=== PATIENT | female | born 1945 | race Caucasian/White ===

== ENCOUNTER 2016-10-14 00:44 | Inpatient (IN) | payer BC, OTHER ==
[2016-10-14] VITALS (9 sets, daily range): BP systolic 91–112; BP diastolic 47–78; PULSE 66–97; TEMP 36.3–37.4; O2SAT 91–96; Ht 157.5 cm; Wt 85.9 kg
[~2016-10-14] VITALS: Ht 157.5 cm; Wt 85.9 kg
[~2016-10-14 00:44] MED LIST: ASCA500 PO; CHOLTAB9 PO; CLC100 PO; CRG3125 PO; CYAN1CAP4 PO; FLV1 PO; HYDR500C3 PO; INSDGI SC; LRS10 PO; LSN25 PO; LSX40 PO; MAGN400T6 PO; NVLGI SC; POTA-327 PO; PRAV20TA PO; PYRI100T4 PO; SNQ25 PO; VITA400C15 PO; WARF5TAB90 PO; WARF7.5T PO
[2016-10-14 01:29] LABS: BASO % 0.1 %; BASO ABS # 0.01 K/uL (0-0.2); EOS % 0.1 %; IG% 0.2 %; LYMPH % 23.5 %; LYMPH ABS # 1.95 K/uL (1.2-3.4); MEAN CELL VOLUME 128.9 fL (80-100); MEAN CORPUSCULAR HEMOGLOBIN 40.9 pg (25-34); MEAN CORPUSCULAR HGB CONC 31.7 g/dl (32-36); MEAN PLATELET VOLUME 9.8 fL (7.4-10.4); MONO % 5.5 %; NEUT % 70.6 %; PLATELET COUNT 241 K/uL (130-400); RED BLOOD COUNT 3.18 M/uL (4.2-5.4); WHITE BLOOD COUNT 8.31 K/uL (4.8-10.8)
[2016-10-14] MEDS ORDERED: FUROSEMIDE 40 MG/4 ML VIAL IV STA (01:30)
--- NOTE | 2016-10-14 01:35 | EMERGENCY ROOM VISIT NOTE ---
History Report prepared by Tex: Andrew Padilla Under the Supervision of: Dr. Marco Antonio Encarnacion D.O. First contact with patient: 01:23 Chief Complaint: SHORTNESS OF BREATH Stated Complaint: SHORTNESS OF BREATH Nursing Triage Summary: patient presents with c/o sudden onset of SOB beginning after 2100 tonight . Also patient has c/o bilateral leg swelling. Patient states she has a hx of MS. patient brought in on nasal cannula at 4L after EMS stated spo2 was 89% on RA. currently 92% on 4L. History of Present Illness The patient is a 71 year old female who presents to the Emergency Room with complaints of worsening shortness of breath tonight. The patient has also had increased swelling of her legs. The patient had some relief of her shortness of breath when she was placed on oxygen en route to the ED. She denies fevers, cough, vomiting, or diarrhea. The patient does not normally wear oxygen, although she has in the past. She denies any history of pneumonia or pulmonary edema. The patient is not ambulatory at baseline. The patient came from home. Source of History: patient Onset: tonight Position: other (respiratory) Quality: other (short of breath) Timing: worsening Associated Symptoms: No cough, No diarrhea, No fevers, No vomiting Review of Systems See HPI for pertinent positives and negatives. A total of ten systems were reviewed and were otherwise negative. Past Medical & Surgical Medical Problems: (1) Anticoagulated on warfarin (2) Benign hypertension (3) Diabetes mellitus, type II (4) Diastolic heart failure (5) History of DVT (deep vein thrombosis) (6) History of pulmonary embolism (7) Hypercholesterolemia (8) MTHFR mutation (9) Multiple sclerosis (10) Nocturnal hypoxemia (11) Polycythemia vera Family History No pertinent family history Social History Smoking Status: Former Smoker Drug Use: none Marital Status: Housing Status: lives with family Occupation Status: disabled Current/Historical Medications Scheduled Baclofen (Baclofen), 10 MG PO QID Carvedilol (Carvedilol), 3.125 MG PO BID Doxepin Hcl (Sinequan), 50 MG PO HS Folic Acid (Folic Acid), 1 MG PO QAM Lisinopril (Lisinopril), 2.5 MG PO QAM Magnesium Oxide (Mag-Ox), 400 MG PO HS Pravastatin (Pravachol ), 20 MG PO HS Rivaroxaban (Xarelto), 20 MG PO QPM Allergies Coded Allergies: No Known Allergies (Verified , 03/18/14) Physical Exam Vital Signs Date Time Temp Pulse Resp B/P Pulse Ox O2 Delivery O2 Flow Rate FiO2 10/14/16 01:52 88 22 130/77 93 Nasal Cannula 4.0 10/14/16 01:24 92 Nasal Cannula 4.0 10/14/16 01:05 109 10/14/16 01:03 92 Nasal Cannula 4.0 10/14/16 01:03 36.9 103 22 106/77 92 Nasal Cannula 4.0 10/14/16 01:03 92 Nasal Cannula 4.0 Physical Exam GENERAL: Awake, alert, well-appearing, in no distress HENT: Normocephalic, atraumatic. Oropharynx unremarkable. EYES: Normal conjunctiva. Sclera non-icteric. NECK: Supple. No nuchal rigidity. FROM. No JVD. RESPIRATORY: Bilateral crackles noted. CARDIAC: Regular rate, normal rhythm. Extremities warm and well perfused. Pulses equal. ABDOMEN: Soft, non-distended. No tenderness to palpation. No rebound or guarding. No masses. RECTAL: Deferred. MUSCULOSKELETAL: Chest examination reveals no tenderness. The back is symmetrical on inspection without obvious abnormality. There is no CVA tenderness to palpation. No joint edema. LOWER EXTREMITIES: Calves are equal size bilaterally and non-tender. Pitting edema bilaterally. No discoloration. NEURO: Normal sensorium. No sensory or motor deficits noted. SKIN: No rash or jaundice noted. Medical Decision & Procedures ER Provider Diagnostic Interpretation: X-ray: Per my interpretation. Chest One View Portable: Elevated right hemidiaphragm. Poor inspiratory effort. Suspect CHF. Laboratory Results 10/14/16 01:00 Red Blood Count 3.18, Mean Corpuscular Volume 128.9, Mean Corpuscular Hemoglobin 40.9, Mean Corpuscular Hemoglobin Concent 31.7, Mean Platelet Volume 9.8, Neutrophils (%) (Auto) 70.6, Lymphocytes (%) (Auto) 23.5, Monocytes (%) ( Auto) 5.5, Eosinophils (%) (Auto) 0.1, Basophils (%) (Auto) 0.1, Neutrophils # ( Auto) 5.86, Lymphocytes # (Auto) 1.95, Monocytes # (Auto) 0.46, Eosinophils # ( Auto) 0.01, Basophils # (Auto) 0.01 10/14/16 01:00 Test 10/14/16 01:00 10/14/16 01:34 White Blood Count 8.31 K/uL (4.8-10.8) Red Blood Count 3.18 M/uL (4.2-5.4) Hemoglobin 13.0 g/dL (12.0-16.0) Hematocrit 41.0 % (37-47) Mean Corpuscular Volume 128.9 fL (80-100) Mean Corpuscular Hemoglobin 40.9 pg (25-34) Mean Corpuscular Hemoglobin Concent 31.7 g/dl (32-36) Platelet Count 241 K/uL (130-400) Mean Platelet Volume 9.8 fL (7.4-10.4) Neutrophils (%) (Auto) 70.6 % Lymphocytes (%) (Auto) 23.5 % Monocytes (%) (Auto) 5.5 % Eosinophils (%) (Auto) 0.1 % Basophils (%) (Auto) 0.1 % Neutrophils # (Auto) 5.86 K/uL (1.4-6.5) Lymphocytes # (Auto) 1.95 K/uL (1.2-3.4) Monocytes # (Auto) 0.46 K/uL (0.11-0.59) Eosinophils # (Auto) 0.01 K/uL (0-0.5) Basophils # (Auto) 0.01 K/uL (0-0.2) RDW Standard Deviation 71.2 fL (36.4-46.3) RDW Coefficient of Variation 15.0 % (11.5-14.5) Immature Granulocyte % (Auto) 0.2 % Immature Granulocyte # (Auto) 0.02 K/uL (0.00-0.02) Macrocytosis PRESENT Prothrombin Time 14.0 SECONDS (9.0-12.0) Prothromb Time International Ratio 1.3 (0.9-1.1) Activated Partial Thromboplast Time 35.7 SECONDS (21.0-31.0) Partial Thromboplastin Ratio 1.4 Anion Gap 3.0 mmol/L (3-11) Est Creatinine Clear Calc Drug Dose 79.6 ml/min Estimated GFR () 104.8 Estimated GFR (Non- 90.4 BUN/Creatinine Ratio 48.3 (10-20) Calcium Level 8.9 mg/dl (8.5-10.1) Total Bilirubin 0.4 mg/dl (0.2-1) Aspartate Amino Transf (AST/SGOT) 18 U/L (15-37) Alanine Aminotransferase (ALT/SGPT) 39 U/L (12-78) Alkaline Phosphatase 84 U/L (45-117) Total Protein 8.0 gm/dl (6.4-8.2) Albumin 3.2 gm/dl (3.4-5.0) Globulin 4.8 gm/dl (2.5-4.0) Albumin/Globulin Ratio 0.7 (0.9-2) Bedside Troponin I 0.000 ng/ml (0-0.045) YL-Kdm-J-Type Natriuretic Peptide 162 pg/ml (0-900) Laboratory results reviewed by me Medications Administered Medications (Trade) Dose Ordered Sig/Yesenia Route Start Time Stop Time Status Last Admin Dose Admin Furosemide (Lasix Inj) 40 mg NOW STAT IV 10/14/16 01:30 10/14/16 01:31 DC 10/14/16 01:30 40 MG Levofloxacin (Levaquin / D5W) 750 mg STK-MED ONCE IV 10/14/16 02:06 10/14/16 02:07 DC 10/14/16 02:06 750 MG ECG Indication: SOB/dyspnea Rate (beats per minute): 105 Rhythm: sinus tachycardia Findings: 1st degree AV block, left axis deviation ED Course 0130: The patient was evaluated in room B12b. A complete history and physical exam was performed. 0130: Lasix 40 mg IV. 0403: The patient will be evaluated by the [facility]. Medical Decision Differential diagnosis: Etiologies such as infections, reactive airway disease, pneumonia, pneumothorax, COPD, CHF, cardiac ischemia, pulmonary embolism, musculoskeletal, gastrointestinal, as well as others were entertained. Patient started on IV Lasix, IV antibiotics, [facility] Impression Primary Impression: Congestive heart failure Scribe Attestation The scribe's documentation has been prepared under my direction and personally reviewed by me in its entirety. I confirm that the note above accurately reflects all work, treatment, procedures, and medical decision making performed by me. Departure Information Dispostion Being Evaluated By Hospitalist Referrals Carol Avalos M.D. (PCP) Patient Instructions My [facility] Problem Qualifiers Primary Impression: Congestive heart failure Congestive heart failure type: unspecified congestive heart failure type Congestive heart failure chronicity: unspecified congestive heart failure chronicity Qualified Codes: I50.9 - Heart failure, unspecified
[2016-10-14 01:42] LABS: INR 1.3 (0.9-1.1); PARTIAL THROMBOPLASTIN RATIO 1.4
[2016-10-14 01:45] LABS: BUN/CREATININE RATIO 48.3 (10-20); CALCIUM 8.9 mg/dl (8.5-10.1); CREATININE 0.64 mg/dl (0.60-1.20); POTASSIUM 4.4 mmol/L (3.5-5.1)
[2016-10-14 01:48] LABS: ALB/GLOB RATIO 0.7 (0.9-2)
[2016-10-14 02:00] LABS: COMPLETE YES
[2016-10-14] MEDS ORDERED: LEVAQUIN 750MG / 150ML D5W IV ONE (02:06)
[2016-10-14] MEDS ORDERED: LSN25 PO (04:16)
[2016-10-14] MEDS ORDERED: LRS10 PO (04:16)
[2016-10-14] MEDS ORDERED: CRG3125 PO (04:16)
[2016-10-14] MEDS ORDERED: DOXE25CA2 PO (04:16)
[2016-10-14] MEDS ORDERED: XRL20 PO (04:16)
[2016-10-14] MEDS ORDERED: ASCA500 PO (04:20)
[2016-10-14] MEDS ORDERED: CYAN10004 PO (04:20)
[2016-10-14] MEDS ORDERED: PYRI1TAB40 PO (04:20)
[2016-10-14] MEDS ORDERED: MCRK/10 PO (04:20)
[2016-10-14] MEDS ORDERED: CHOL2000 PO (04:21)
[2016-10-14] MEDS ORDERED: DOCU100C31 PO (04:22)
[2016-10-14] MEDS ORDERED: CLR10 PO (04:22)
[2016-10-14] MEDS ORDERED: VITA1CAP5 PO (04:22)
[2016-10-14] MEDS ORDERED: GLIP5TAB11 PO (04:22)
[2016-10-14] MEDS ORDERED: POTA10TA32 PO (04:24)
[2016-10-14] MEDS ORDERED: HYDR500C3 PO (04:25)
[2016-10-14] MEDS ORDERED: FURO-85 PO (04:25)
[2016-10-14] MEDS ORDERED: ONDANSETRON INJ 2 MG/ML 2 ML VIAL IV PRN (04:45)
[2016-10-14] MEDS ORDERED: ACETAMINOPHEN 325 MG TAB PO PRN (04:45)
[2016-10-14] MEDS ORDERED: ALBUT/IPRATROP 3MG/0.5MG NEB 3 ML VIAL INH PRN (04:45)
[2016-10-14] MEDS ORDERED: GLUCAGON FOR INJ 1 MG VIAL SQ PRN (05:00)
[2016-10-14] MEDS ORDERED: GLUCOSE 10 TABS/TUBE PO PRN (05:00)
[2016-10-14] MEDS ORDERED: DEXTROSE 50% 50 ML SYR IV PRN (05:00)
[2016-10-14] MEDS ORDERED: GLUCOSE 40% GEL 15 GM TUBE PO PRN (05:00)
[2016-10-14] MEDS ORDERED: PHARMACY GLYCEMIC MGMT CONSULT PRN (05:18)
--- NOTE | 2016-10-14 05:24 | History and Physical ---
History & Physical Date & Time of Service: Oct 14, 2016 at 04:57 Chief Complaint: Shortness Of Breath Primary Care Physician: Carol Avalos M.D. History of Present Illness Source: patient Patient is a 71 yr old female with PMH of Multiple sclerosis, Polycythemia vera , DM II, DVT on chronic anticoagulation, HTN, Diastolic CHF presents with history of SOB and worsening leg swelling. Patient is a very poor historian and no family member available to obtain history. As per patient, patient has been having SOB on and off lately which has has been progressively worsening. Also noticed increased bilateral leg swelling since last 2 weeks. Reports feeling feverish intermittently as well since 1 week. Also states having PND. Denies any history of cough, wheezing, chest pain, palpitations, orthopnea, abd pain, change in bowel/bladder habits, headache, dizziness or any sick contact. She is bed bound at baseline but denies any history of aspiration.SOB has especially worsening since yesterday and so came to ED for further evaluation. Past Medical/Surgical History Medical Problems: (1) Anticoagulated on warfarin Status: Chronic (2) Benign hypertension Status: Chronic (3) Diabetes mellitus, type II Status: Chronic (4) Diastolic heart failure Status: Chronic (5) History of DVT (deep vein thrombosis) Status: Chronic (6) History of pulmonary embolism Status: Chronic (7) Hypercholesterolemia Status: Chronic (8) MTHFR mutation Permanent Comment: homozygous Status: Chronic (9) Multiple sclerosis Status: Chronic (10) Nocturnal hypoxemia Permanent Comment: mild sleep apnea per sleep study 2005 on O2 at night 3.5 - 4 L via NC Status: Chronic (11) Polycythemia vera Status: Chronic Family History No pertinent family history Reviewed but not relevant Social History Smoking Status: Former Smoker Alcohol Use: none Drug Use: none Marital Status: Occupational Status: disabled Immunizations History of Influenza Vaccine: Yes Influenza Vaccine Date: Apr 26, 2013 History of Tetanus Vaccine?: Yes Tetanus Immunization Date: May 24, 2011 History of Pneumococcal: Yes Pneumococcal Date: Jan 29, 2013 History of Hepatitis B Vaccine: Unknown Multi-Drug Resistant Organisms History of MDRO: No Allergies Coded Allergies: No Known Allergies (Verified , 03/18/14) Home Medications Scheduled Ascorbic Acid (Vitamin C), 500 MG PO DAILY Baclofen (Baclofen), 10 MG PO QID Carvedilol (Carvedilol), 3.125 MG PO BID Cholecalciferol (Vitamin D3), 1 CAP PO DAILY Cyanocobalamin (Vitamin B-12 1000 Mcg), 1,000 MCG PO DAILY Docusate Sodium (Docusate Sodium), 1 CAP PO HS Doxepin Hcl (Sinequan), 50 MG PO HS Folic Acid (Folic Acid), 1 MG PO QAM Furosemide (Lasix), 20 MG PO QAM Glipizide (Glucotrol), 2.5 MG PO BID Hydroxyurea (Hydrea Cap), 1,000 MG PO QPM Lisinopril (Lisinopril), 2.5 MG PO QAM Magnesium Oxide (Mag-Ox), 400 MG PO HS Potassium Chloride Microencaps (Potassium Chloride Er), 10 MEQ PO QAM Pravastatin (Pravachol ), 20 MG PO HS Pyridoxine HCl (Vitamin B6), 25 MG PO DAILY Rivaroxaban (Xarelto), 20 MG PO QPM Vitamin E (E400), 400 UNIT PO DAILY Scheduled PRN Loratadine (Claritin), 10 MG PO DAILY PRN for ALLERGY SX Review of Systems See HPI for pertinent positives & negatives. A total of 10 systems reviewed and were otherwise negative. Physical Exam Vital Signs Date Time Temp Pulse Resp B/P Pulse Ox O2 Delivery O2 Flow Rate FiO2 10/14/16 01:52 88 22 130/77 93 Nasal Cannula 4.0 10/14/16 01:24 92 Nasal Cannula 4.0 10/14/16 01:05 109 10/14/16 01:03 92 Nasal Cannula 4.0 10/14/16 01:03 36.9 103 22 106/77 92 Nasal Cannula 4.0 10/14/16 01:03 92 Nasal Cannula 4.0 General Appearance: WD/WN, no apparent distress, + pertinent finding ( Chronically ill appearing) Head: normocephalic, atraumatic Eyes: normal inspection, PERRL, EOMI, sclerae normal ENT: normal ENT inspection, hearing grossly normal Neck: supple, trachea midline Respiratory/Chest: chest non-tender, normal breath sounds, no respiratory distress, no accessory muscle use, + crackles Cardiovascular: regular rate, rhythm, no murmur, + pertinent finding (2+ B/L LE edema) Abdomen/GI: normal bowel sounds, non tender, soft Back: normal inspection Extremities/Musculoskelatal: normal inspection, + pedal edema Neurologic/Psych: application systems administrator II-XII nml as tested, no motor/sensory deficits, alert, normal mood/affect, oriented x 3 Skin: normal color, warm/dry Diagnostics Laboratory Results Results Past 24 Hours Test 10/14/16 01:00 10/14/16 01:34 Range/Units White Blood Count 8.31 4.8-10.8 K/uL Red Blood Count 3.18 4.2-5.4 M/uL Hemoglobin 13.0 12.0-16.0 g/dL Hematocrit 41.0 37-47 % Mean Corpuscular Volume 128.9 80-100 fL Mean Corpuscular Hemoglobin 40.9 25-34 pg Mean Corpuscular Hemoglobin Concent 31.7 32-36 g/dl Platelet Count 241 130-400 K/uL Mean Platelet Volume 9.8 7.4-10.4 fL Neutrophils (%) (Auto) 70.6 % Lymphocytes (%) (Auto) 23.5 % Monocytes (%) (Auto) 5.5 % Eosinophils (%) (Auto) 0.1 % Basophils (%) (Auto) 0.1 % Neutrophils # (Auto) 5.86 1.4-6.5 K/uL Lymphocytes # (Auto) 1.95 1.2-3.4 K/uL Monocytes # (Auto) 0.46 0.11-0.59 K/uL Eosinophils # (Auto) 0.01 0-0.5 K/uL Basophils # (Auto) 0.01 0-0.2 K/uL RDW Standard Deviation 71.2 36.4-46.3 fL RDW Coefficient of Variation 15.0 11.5-14.5 % Immature Granulocyte % (Auto) 0.2 % Immature Granulocyte # (Auto) 0.02 0.00-0.02 K/uL Macrocytosis PRESENT Prothrombin Time 14.0 9.0-12.0 SECONDS Prothromb Time International Ratio 1.3 0.9-1.1 Activated Partial Thromboplast Time 35.7 21.0-31.0 SECONDS Partial Thromboplastin Ratio 1.4 Sodium Level 142 136-145 mmol/L Potassium Level 4.4 3.5-5.1 mmol/L Chloride Level 105 98-107 mmol/L Carbon Dioxide Level 34 21-32 mmol/L Anion Gap 3.0 3-11 mmol/L Blood Urea Nitrogen 31 7-18 mg/dl Creatinine 0.64 0.60-1.20 mg/dl Est Creatinine Clear Calc Drug Dose 79.6 ml/min Estimated GFR () 104.8 Estimated GFR (Non- 90.4 BUN/Creatinine Ratio 48.3 10-20 Random Glucose 214 70-99 mg/dl Calcium Level 8.9 8.5-10.1 mg/dl Total Bilirubin 0.4 0.2-1 mg/dl Aspartate Amino Transf (AST/SGOT) 18 15-37 U/L Alanine Aminotransferase (ALT/SGPT) 39 12-78 U/L Alkaline Phosphatase 84 45-117 U/L Total Protein 8.0 6.4-8.2 gm/dl Albumin 3.2 3.4-5.0 gm/dl Globulin 4.8 2.5-4.0 gm/dl Albumin/Globulin Ratio 0.7 0.9-2 Bedside Troponin I 0.000 0-0.045 ng/ml CR-Dxr-H-Type Natriuretic Peptide 162 0-900 pg/ml Microbiology Results 10/14/16 Blood Culture, Received Pending 10/14/16 Blood Culture, Received Pending Diagnostic Radiology CXR: Elevated right hemidiaphragm. Poor inspiratory effort. Possible CHF. EKG EKG: Sinus Tachycardia, 1st degree AV block Impression Assessment and Plan Worsening Shortness of breath/PND/Pedal edema: Likely secondary to decompensated diastolic heart failure CXR:suggestive of possible CHF Pneumonia less likely: Normal WBC, afebrile currently, denies cough Start IV lasix 40mg BID Monitor electrolytes while on IV diuretics BNP:wnl Check ECHO Last ECHO in November 2015: EF:55-59% Daily weight, I/Os, fluid and salt restriction Empirically start on IV Levaquin as ? aspiration (Bed bound/Multiple sclerosis, complains of intermittent fever) Follow up blood cultures DuoNeb PRN, Oxygen per protocol DM Type II: Will hold oral diabetic meds Check A1c ISS, Accu checks, Diabetic diet Multiple Sclerosis: Stable Continue home meds H/O DVT: Continue Xarelto Polycythemia Vera: Continue Hydroxyurea HTN: Stable Continue home meds HLP: continue statins DVT Px: on Xarelto Disposition: Monitoring in Telemetry VTE Prophylaxis VTE Risk Assessment Done? Y/N: Yes Risk Level: Moderate
[2016-10-14] MEDS ORDERED: HEPARIN SOD 5000 UNIT/0.5 ML CARP SQ SCH (06:00)
[2016-10-14 07:35] LABS: ESTIMATED AVERAGE GLUCOSE 105 mg/dl; HA1C FLAG Normal (Normal)
--- NOTE | 2016-10-14 07:38 | DIAGNOSTIC IMAGING REPORT ---
SINGLE VIEW CHEST CLINICAL HISTORY: Dyspnea. FINDINGS: An AP, portable, upright chest radiograph is compared to study dated 09/10/2010. The examination is severely degraded by portable technique and patient rotation. The heart is top normal in size. Emphysema and chronic interstitial thickening are similar to previous. There is chronic elevation of the right hemidiaphragm with bibasilar atelectasis. Trace pleural effusions are suspected. No airspace consolidation is identified typical for pneumonia. No pneumothorax is seen. The skeletal structures are osteopenic. Degenerative change is noted throughout the thoracic spine. Cholecystectomy clips are seen in the right upper quadrant. IMPRESSION: 1. Low lung volumes and chronic parenchymal changes as above. 2. Suspect small pleural effusions. No airspace consolidation is seen typical for pneumonia. Electronically signed by: Aurelio Smith M.D. 10/14/2016 7:36 AM Dictated Date/Time: 10/14/2016 7:35 AM
--- NOTE | 2016-10-14 08:01 | Pharmacy Progress Note ---
Glycemic Control Intl Consult Date of Service Oct 14, 2016. Scope Glycemic Pharmacist consulted by on 10/14/16 for glycemic control and to write orders per [facility] inpatient glycemic control protocol Objective Weight (Kilograms): 82.400 Accuchecks BSG (last 24hrs): Test 10/14/16 01:00 10/14/16 07:28 Random Glucose 214 mg/dl (70-99) Bedside Glucose 113 mg/dl (70-90) Laboratory Data (last 24hrs) Test 10/14/16 01:00 Anion Gap 3.0 mmol/L BUN/Creatinine Ratio 48.3 Blood Urea Nitrogen 31 mg/dl Creatinine 0.64 mg/dl Hemoglobin A1c 5.3 % Potassium Level 4.4 mmol/L Sodium Level 142 mmol/L White Blood Count 8.31 K/uL Red Blood Count 3.18 M/uL Hemoglobin 13.0 g/dL Hematocrit 41.0 % Mean Corpuscular Volume 128.9 fL Mean Corpuscular Hemoglobin 40.9 pg Mean Corpuscular Hemoglobin Concent 31.7 g/dl Platelet Count 241 K/uL Mean Platelet Volume 9.8 fL Neutrophils (%) (Auto) 70.6 % Lymphocytes (%) (Auto) 23.5 % Monocytes (%) (Auto) 5.5 % Eosinophils (%) (Auto) 0.1 % Basophils (%) (Auto) 0.1 % Neutrophils # (Auto) 5.86 K/uL Lymphocytes # (Auto) 1.95 K/uL Monocytes # (Auto) 0.46 K/uL Eosinophils # (Auto) 0.01 K/uL Basophils # (Auto) 0.01 K/uL HbA1c Test 10/14/16 01:00 Hemoglobin A1c 5.3 % (4.5-5.6) Recent Pertinent Medications Outpatient Anti-diabetic Regimen: * Glipizide 2.5mg BID * A1c = 5.3 % from today, 10/14/16 Risk Factors for Insulin Resistance: * Infection: On Levaquin for possible PNA * IVF: Received Lasix IV * Diet:Connie/DM2/Fluid restricted Assessment & Plan ASSESSMENT: * ADA & AACE recommend a goal blood sugar range 140-180 mg/dl for the majority of critically ill & non-critically ill patients. However, more stringent targets may be selected in individual cases. * 71 yo female admitted with SOB secondary to possible diastolic HF or PNA. * A1c from this morning reveals BSGs are well controlled as an outpatient on oral antihyperglycemic agents alone. * Oral agents are not recommended for inpatient use d/t drug interactions, changing PO intake, and difficulty titrating for acute hyper/hypoglycemia. * Will hold oral agents for admission and utilize SQ basal bolus insulin regimen which is the recommended regimen for inpatient glycemic control. * Will initiate weight based insulin dosing for insulin yasmien patient and titrate based on BSG trends. * I suspect pt has very minimal insulin needs. I also suspect that the pt will not require basal insulin during admission. If the need arises to start basal insulin then will begin Lantus. PLAN FOR INPATIENT GLYCEMIC CONTROL: * No Lantus necessary * Novolog ACHS * Start correction factor of 50 mg/dl/unit * Start carb ratio of 1 unit per 20 grams CHO consumed * Set goal range to Low 120 mg/dL - High 160 mg/dL * Please note that the plan above was derived based on current level of insulin resistance and hospital stress. These recommendations are appropriate for inpatient admission only. Plan of care upon discharge will need to be reassessed to avoid potential outpatient hypo/hyperglycemia. Thank you.
[2016-10-14] MEDS ORDERED: POTASSIUM CHLORIDE 10 MEQ TABCR PO SCH (09:00)
[2016-10-14] MEDS ORDERED: LISINOPRIL 2.5 MG TAB PO SCH (09:00)
[2016-10-14] MEDS: FUROSEMIDE INJ 40 MG in SYRINGE 0 ML IV SCH ×2 (09:15→20:40)
[2016-10-14] MEDS: ASCORBIC ACID 500 MG TAB PO SCH (09:16)
[2016-10-14] MEDS: BACLOFEN 10 MG TAB PO SCH ×4 (09:16→22:06)
[2016-10-14] MEDS: CARVEDILOL 3.125 MG TAB PO SCH ×2 (09:17→22:05)
[2016-10-14] MEDS: CYANOCOBALAMIN 500 MCG TAB (VIT B-12) PO SCH (09:17)
[2016-10-14] MEDS: TOCOPHERYL, DL-ALPHA 400 INTER.UNIT CAP PO SCH (09:18)
[2016-10-14] MEDS: PYRIDOXINE HCL 50 MG TAB PO SCH (09:19)
[2016-10-14] MEDS: CHOLECALCIFEROL 1000 INTER.UNIT TAB PO SCH (09:19)
--- NOTE | 2016-10-14 09:23 | Progress Note ---
Medicine Progress Note Date & Time of Visit: Oct 14, 2016 at 09:14. Subjective patient seen resting in bed, comfortable family at bedside states his breathing is improved compared to yesterday denies cough, shortness of breath, sputum denies chest pain, palpitations, dizziness no leg pain no changes with urination or BMs no changes with baseline functional status denies other changes Objective Last 8 Hrs Date Time Temp Pulse Resp B/P Pulse Ox O2 Delivery O2 Flow Rate FiO2 10/14/16 07:15 36.3 90 18 109/75 94 3.5 10/14/16 06:15 36.3 18 109/75 94 Nasal Cannula 4.0 10/14/16 06:09 89 16 91/62 97 10/14/16 05:30 83 20 96 10/14/16 05:05 101/54 10/14/16 05:00 87 20 95 10/14/16 04:30 94 20 94 10/14/16 04:02 99/55 10/14/16 04:00 94 17 92 10/14/16 03:55 134/100 10/14/16 03:30 93 18 93 10/14/16 03:00 92 21 94 10/14/16 02:30 99 23 92 10/14/16 02:00 88 21 92 10/14/16 01:52 88 22 130/77 93 Nasal Cannula 4.0 10/14/16 01:24 92 Nasal Cannula 4.0 Physical Exam: General-oriented x 3, not in distress, speaks in sentences with no effort or acc muscle use Head- atraumatic Eyes- EOMI, anicteric ENT- oropharynx clear Neck- supple, no JVD, no adenopathy, no thyromegaly; no bruits appreciated Lungs- diminished breath sounds at the bases but no rales, or wheezing Heart- normal rate, regular rhythm; no murmurs Abdomen- normal bowel sounds, soft, nontender, no masses or hepatosplenomegaly Extremities- grade 1-2 lower leg edema, no tenderness Neuro- alert, oriented x 3; EOMI; no facial palsy; no dysarthria;baseline strength- patient is bedbound Skin- warm & dry Laboratory Results: Last 24 Hours Test 10/14/16 01:00 10/14/16 01:34 10/14/16 07:28 White Blood Count 8.31 K/uL Red Blood Count 3.18 M/uL Hemoglobin 13.0 g/dL Hematocrit 41.0 % Mean Corpuscular Volume 128.9 fL Mean Corpuscular Hemoglobin 40.9 pg Mean Corpuscular Hemoglobin Concent 31.7 g/dl Platelet Count 241 K/uL Mean Platelet Volume 9.8 fL Neutrophils (%) (Auto) 70.6 % Lymphocytes (%) (Auto) 23.5 % Monocytes (%) (Auto) 5.5 % Eosinophils (%) (Auto) 0.1 % Basophils (%) (Auto) 0.1 % Neutrophils # (Auto) 5.86 K/uL Lymphocytes # (Auto) 1.95 K/uL Monocytes # (Auto) 0.46 K/uL Eosinophils # (Auto) 0.01 K/uL Basophils # (Auto) 0.01 K/uL RDW Standard Deviation 71.2 fL RDW Coefficient of Variation 15.0 % Immature Granulocyte % (Auto) 0.2 % Immature Granulocyte # (Auto) 0.02 K/uL Macrocytosis PRESENT Prothrombin Time 14.0 SECONDS Prothromb Time International Ratio 1.3 Activated Partial Thromboplast Time 35.7 SECONDS Partial Thromboplastin Ratio 1.4 Sodium Level 142 mmol/L Potassium Level 4.4 mmol/L Chloride Level 105 mmol/L Carbon Dioxide Level 34 mmol/L Anion Gap 3.0 mmol/L Blood Urea Nitrogen 31 mg/dl Creatinine 0.64 mg/dl Est Creatinine Clear Calc Drug Dose 79.6 ml/min Estimated GFR () 104.8 Estimated GFR (Non- 90.4 BUN/Creatinine Ratio 48.3 Random Glucose 214 mg/dl Estimated Average Glucose 105 mg/dl Hemoglobin A1c 5.3 % Calcium Level 8.9 mg/dl Total Bilirubin 0.4 mg/dl Aspartate Amino Transf (AST/SGOT) 18 U/L Alanine Aminotransferase (ALT/SGPT) 39 U/L Alkaline Phosphatase 84 U/L Total Protein 8.0 gm/dl Albumin 3.2 gm/dl Globulin 4.8 gm/dl Albumin/Globulin Ratio 0.7 Bedside Troponin I 0.000 ng/ml MC-Dyw-D-Type Natriuretic Peptide 162 pg/ml Bedside Glucose 113 mg/dl Date/Time Source Procedure Growth Status 10/14/16 02:06 Blood Blood Culture Pending Received 10/14/16 02:00 Blood Blood Culture Pending Received Assessment & Plan 71 year old female with history of CHF Diastolic Type and Moderate Mitral Regurgitation, DM, HTN, Multiple Sclerosis, DVT and PE on Xarelto, Obstructive Sleep Apnea, presenting with shortness of breath and leg swelling x few days. POSSIBLE ACUTE EXACERBATION OF CHRONIC DIASTOLIC CHF - usually on Lasix 20mg PO daily last echo 2014 - started with lasix 40mg IV BID I &O being monitored - started on 4 L o2 via NC although breathing has improved compared to yesterday - check Echo - on Levaquin for possible component of bronchitis DM Type II: hold glipizide A1c 5.3 ISS, Accu checks, Diabetic diet HTN stable continue Carvedilol, Lisinopril Multiple Sclerosis: Stable Continue baclofen, Doxepine H/O DVT and PE Continue Xarelto Polycythemia Vera: Continue Hydroxyurea HLP: continue statin DVT Px: on Xarelto Disposition: Monitoring in Telemetry pending anticipate d/c home with home health services when medically stable Current Inpatient Medications: Current Inpatient Medications Medications (Trade) Dose Ordered Sig/Yesenia Route Start Time Stop Time Status Last Admin Dose Admin Acetaminophen (Tylenol Tab) 650 mg Q4H PRN PO 10/14/16 04:45 11/13/16 04:44 Ondansetron HCl (Zofran Inj) 4 mg Q6H PRN IV 10/14/16 04:45 11/13/16 04:44 Albuterol/ Ipratropium 3 ml 3 ml Q4R PRN INH 10/14/16 04:45 11/13/16 04:44 Levofloxacin 750 mg/Prmx 150 ml @ 100 mls/hr Q24H IV 10/15/16 02:00 10/22/16 01:59 Furosemide/Syringe (Lasix Inj/ Syringe) 4 ml @ 4 mls/min BID@0800,2000 IV 10/14/16 09:00 11/13/16 08:59 Insulin Aspart (novoLOG ASPART) SLIDING SCALE If C... ACHS SC 10/14/16 08:00 11/13/16 07:59 Glucose (Glucose 40% Gel) 15-30 GRAMS 15 GRAMS... UD PRN PO 10/14/16 05:00 11/13/16 04:59 Glucose (Glucose Chew Tab) 4-8 Tablets 4 Tabl... UD PRN PO 10/14/16 05:00 11/13/16 04:59 Dextrose (Dextrose 50% 50ML Syringe) 25-50ML OF 50% DW IV FOR... UD PRN IV 10/14/16 05:00 11/13/16 04:59 Glucagon (Glucagon Inj) 1 mg UD PRN SQ 10/14/16 05:00 11/13/16 04:59 Miscellaneous Information (Consult Glycemic Management Pharmacy) 1 ea UD PRN N/A 10/14/16 05:18 11/13/16 05:17 Ascorbic Acid (Vitamin C Tab) 500 mg DAILY PO 10/14/16 09:00 11/13/16 08:59 Baclofen (Lioresal Tab) 10 mg QID PO 10/14/16 09:00 11/13/16 08:59 Carvedilol (Coreg Tab) 3.125 mg BID PO 10/14/16 09:00 11/13/16 08:59 Cyanocobalamin (Vitamin B-12 Tab) 1,000 mcg DAILY PO 10/14/16 09:00 11/13/16 08:59 Docusate Sodium (coLACE CAP) 100 mg HS PO 10/14/16 21:00 11/13/16 20:59 Doxepin HCl (Sinequan Cap) 50 mg HS PO 10/14/16 21:00 11/13/16 20:59 Folic Acid (Folvite Tab) 1 mg QAM PO 10/14/16 09:00 11/13/16 08:59 Hydroxyurea (Hydrea Cap) 1,000 mg QPM PO 10/14/16 21:00 11/13/16 20:59 Lisinopril (Zestril Tab) 2.5 mg QAM PO 10/14/16 09:00 11/13/16 08:59 Magnesium Oxide (Mag-Ox Tab) 400 mg HS PO 10/14/16 21:00 11/13/16 20:59 Potassium Chloride (Klor-Con M10) 10 meq QAM PO 10/14/16 09:00 11/13/16 08:59 Pravastatin Sodium (Pravachol Tab) 20 mg HS PO 10/14/16 21:00 11/13/16 20:59 Pyridoxine HCl (Vitamin B-6 Tab) 25 mg DAILY PO 10/14/16 09:00 11/13/16 08:59 Rivaroxaban (Xarelto Tab) 20 mg QPM PO 10/14/16 21:00 11/13/16 20:59 gv-Krnoi-Liznswsmsc Acetate (Vitamin E Cap) 400 interunit DAILY PO 10/14/16 09:00 11/13/16 08:59 Cholecalciferol (Vitamin D Tab) 2,000 inter.unit DAILY PO 10/14/16 09:00 11/13/16 08:59
[2016-10-14] MEDS: INSULIN ASPART 100 UNITS/ML 3 ML PEN SC SCH ×4 (09:54→22:09)
--- NOTE | 2016-10-14 10:45 | ECHOCARDIOGRAM REPORT ---
*NOTICE TO RECEIVING [employer] This information is strictly Confidential and protected under [place] law. [place] law prohibits you from making any further disclosure of this information unless further disclosure is expressly permitted by the written consent of the person to whom it pertains or is authorized by law. A general authorization for the release of medical or other information is not sufficient for this purpose. Hospital accepts no responsibility if the information is made available to any other person, INCLUDING THE PATIENT. Interpretation Summary * Name: MERRILL FERRELL Study Date: 10/14/2016 08:17 AM BP: 109/75 mmHg * Patient Location: [facility]\S\N288\S\2 HR: 82 * : 1945 (M/d/yyyy) Gender: Female Height: 61 in * Age: 71 yrs Ethnicity: [place] Weight: 181 lb * Ordering Physician: Marty Branham * Referring Physician: Self, Referred * Performed By: Cele Reed RCS * * Reason For Study: CHF / SOB * BSA: 1.8 m2 * -- Conclusions -- * The left ventricle is normal in size. * There is moderate concentric left ventricular hypertrophy. * Left ventricular systolic function is mildly reduced. * Ejection Fraction = 45-50%. * The right ventricular systolic function is normal. * The left atrial size is normal. * Right atrial size is normal. * The mitral valve leaflets appear thickened, but open well. * There is mild to moderate mitral regurgitation. Procedure Details * A complete two-dimensional transthoracic echocardiogram was performed (2D, M-mode, Doppler and color flow Doppler). Left Ventricle * The left ventricle is normal in size. * There is moderate concentric left ventricular hypertrophy. * Ejection Fraction = 45-50%. * Left ventricular systolic function is mildly reduced. Right Ventricle * The right ventricle is normal size. * The right ventricular systolic function is normal. Atria * The left atrial size is normal. * Right atrial size is normal. Mitral Valve * The mitral valve leaflets appear thickened, but open well. * There is mild to moderate mitral regurgitation. Tricuspid Valve * The tricuspid valve anatomy is normal. * Significant tricuspid regurgitation is absent. Aortic Valve * The aortic valve is tricuspid. The leaflet thickness if normal. There is no aortic stenosis, and no significant insufficiency. * No hemodynamically significant valvular aortic stenosis. * There is no significant aortic regurgitation. Great Vessels * The aortic root and proximal ascending aorta are normal sized. Pericardium/Pleural * There is no pericardial effusion. MMode 2D Measurements and Calculations IVSd 1.3 cm IVSs 1.6 cm LVIDd 4.2 cm LVIDs 3.2 cm LVPWd 0.94 cm LVPWs 1.4 cm IVS/LVPW 1.4 FS 23.6 % EDV(Teich) 80.6 ml ESV(Teich) 42.3 ml EF(Teich) 47.5 % EDV(cubed) 76.5 ml ESV(cubed) 34.1 ml EF(cubed) 55.4 % % IVS thick 18.0 % % LVPW thick 50.0 % LV mass(C)d 168.4 grams LV mass(C)dI 93.0 grams/m\S\2 LV mass(C)s 174.1 grams LV mass(C)sI 96.1 grams/m\S\2 SV(Teich) 38.3 ml SI(Teich) 21.1 ml/m\S\2 SV(cubed) 42.4 ml SI(cubed) 23.4 ml/m\S\2 Ao root diam 3.5 cm Ao root area 9.6 cm\S\2 ACS 1.7 cm LA dimension 3.8 cm LA/Ao 1.1 LVOT diam 2.0 cm LVOT area 3.3 cm\S\2 LVAd ap4 29.0 cm\S\2 LVLd ap4 7.7 cm EDV(MOD-sp4) 95.8 ml EDV(sp4-el) 92.6 ml LVAs ap4 21.2 cm\S\2 LVLs ap4 7.0 cm ESV(MOD-sp4) 56.3 ml ESV(sp4-el) 54.4 ml EF(MOD-sp4) 41.3 % EF(sp4-el) 41.2 % LVAd ap2 30.9 cm\S\2 LVLd ap2 7.6 cm EDV(MOD-sp2) 106.3 ml EDV(sp2-el) 106.9 ml LVAs ap2 21.2 cm\S\2 LVLs ap2 7.1 cm ESV(MOD-sp2) 54.0 ml ESV(sp2-el) 53.9 ml EF(MOD-sp2) 49.2 % EF(sp2-el) 49.6 % LVLd %diff -2.26 % EDV(MOD-bp) 102.1 ml LVLs %diff 1.2 % ESV(MOD-bp) 55.0 ml EF(MOD-bp) 46.2 % SV(MOD-sp4) 39.5 ml SI(MOD-sp4) 21.8 ml/m\S\2 SV(MOD-sp2) 52.4 ml SI(MOD-sp2) 28.9 ml/m\S\2 SV(MOD-bp) 47.2 ml SI(MOD-bp) 26.0 ml/m\S\2 SV(sp4-el) 38.1 ml SI(sp4-el) 21.1 ml/m\S\2 SV(sp2-el) 53.0 ml SI(sp2-el) 29.3 ml/m\S\2 Doppler Measurements and Calculations MV E max anna 91.7 cm/sec MV A max anna 94.4 cm/sec MV E/A 0.97 MV P1/2t max anna 131.8 cm/sec MV P1/2t 91.7 msec MVA(P1/2t) 2.4 cm\S\2 MV dec slope 421.2 cm/sec\S\2 MV dec time 0.27 sec Ao V2 max 142.3 cm/sec Ao max PG 8.1 mmHg Ao max PG (full) 6.3 mmHg LUCIA(V,A) 1.6 cm\S\2 LUCIA(V,D) 1.6 cm\S\2 LV V1 max PG 1.8 mmHg LV V1 max 67.4 cm/sec MR max anna 523.6 cm/sec MR max PG 109.7 mmHg TR max anna 256.2 cm/sec
[2016-10-14] MEDS ORDERED: RIVAROXABAN 20 MG TAB PO SCH (21:00)
[2016-10-14] MEDS ORDERED: HYDROXYUREA 500 MG CAP PO SCH (21:00)
[2016-10-14] MEDS: DOCUSATE SODIUM 100 MG CAP PO SCH (22:05)
[2016-10-14] MEDS: MAGNESIUM OXIDE 400 MG TAB PO SCH (22:06)
[2016-10-14] MEDS: DOXEPIN HCL 25 MG CAP PO SCH (22:06)
[2016-10-14] MEDS: PRAVASTATIN SOD 20 MG TAB PO SCH (22:06)
[2016-10-15] VITALS (22 sets, daily range): BP systolic 75–125; BP diastolic 46–83; PULSE 69–97; TEMP 36.3–37; O2SAT 92–100
[2016-10-15] MEDS ORDERED: LEVOFLOXACIN / D5W 750 MG in PREMIXED IN D5W 150 ML IV SCH (02:00)
[2016-10-15] MEDS ORDERED: NURSING VERBAL MED ORDER ONE ×4 (05:00→18:15)
[2016-10-15 05:56] LABS: EOS % 0.1 %; HEMATOCRIT 35.8 % (37-47); IG% 0.1 %; LYMPH % 21.4 %; LYMPH ABS # 1.77 K/uL (1.2-3.4); MEAN CELL VOLUME 129.2 fL (80-100); MEAN CORPUSCULAR HEMOGLOBIN 42.2 pg (25-34); MEAN CORPUSCULAR HGB CONC 32.7 g/dl (32-36); MEAN PLATELET VOLUME 9.6 fL (7.4-10.4); NEUT % 69.4 %; PLATELET COUNT 196 K/uL (130-400); RED BLOOD COUNT 2.77 M/uL (4.2-5.4); WHITE BLOOD COUNT 8.26 K/uL (4.8-10.8)
[2016-10-15] MEDS ORDERED: SODIUM CHLORIDE 0.9% 1000ML 250 ML IV ONE (06:00)
[2016-10-15 06:05] LABS: ARTERIAL BLD GAS O2 SATURATION 98.1 % (90-95); ARTERIAL BLOOD GAS BASE EXCESS 4.1 mEq/L (-9-1.8); ARTERIAL BLOOD GAS HCO3 31 mmol/L (19-24); ARTERIAL BLOOD GAS PO2 150 mm/Hg (80-95); ARTERIAL BLOOD GAS pH 7.34 (7.35-7.45)
[2016-10-15 06:06] LABS: ALLEN TEST POS (POS); O2 ADMINISTRATION 6 L
[2016-10-15 06:20] LABS: COMPLETE YES
[2016-10-15 06:23] LABS: BUN/CREATININE RATIO 31.4 (10-20); CALCIUM 8.4 mg/dl (8.5-10.1); CREATININE 1.4 mg/dl (0.60-1.20); POTASSIUM 4.3 mmol/L (3.5-5.1)
[2016-10-15] MEDS ORDERED: SODIUM CHLORIDE 0.9% 250ML 250 ML IV SCH (06:45)
--- NOTE | 2016-10-15 07:17 | DIAGNOSTIC IMAGING REPORT ---
HEAD CT NONCONTRAST CT DOSE: 614.27 mGy.cm HISTORY: change in mental status TECHNIQUE: Multiaxial CT images of the head were performed without the use of intravenous contrast. Automated exposure control was utilized for this study. Comparison: Head CT 09/05/2010. Findings: The paranasal sinuses and mastoid air cells are clear. The calvarium and skull base are intact. There is no hematoma, midline shift, acute infarct. White matter hypodensity is nonspecific but suggestive of microvascular ischemic change. The ventricles and sulci demonstrate mild age-related involutional changes. Stable 11 mm extra-axial mass within the left cerebellopontine angle cistern. Impression: No acute intracranial abnormality. Atrophy and microvascular ischemic changes. Stable 11 mm extra-axial mass within the left cerebellopontine angle cistern. Given the long-term stability this favors a meningioma. Electronically signed by: Jeremiah Herrera M.D. 10/15/2016 7:16 AM Dictated Date/Time: 10/15/2016 7:13 AM
--- NOTE | 2016-10-15 08:07 | DIAGNOSTIC IMAGING REPORT ---
CHEST ONE VIEW PORTABLE HISTORY: Shortness of breath. COMPARISON: Chest 10/14/2016. FINDINGS: There are low lung volumes with marked elevation the right hemidiaphragm. This remains unchanged. Gas-filled colon is again noted. Poststernotomy changes. Bibasilar linear densities persist. No pleural effusions. No pneumothorax. The heart is unchanged in size. There is mild central pulmonary vascular congestion without overt edema. IMPRESSION: Overall, similar appearance to the prior study with low lung volumes and marked elevation of the right hemidiaphragm. Bibasilar densities persist and may represent atelectasis. Mild central pulmonary vascular congestion is again noted. Electronically signed by: Jeremiah Herrera M.D. 10/15/2016 8:06 AM Dictated Date/Time: 10/15/2016 8:04 AM
[2016-10-15 08:12] LABS: ARTERIAL BLD GAS O2 SATURATION 95.1 % (90-95); ARTERIAL BLOOD GAS HCO3 30 mmol/L (19-24); ARTERIAL BLOOD GAS PO2 98 mm/Hg (80-95); ARTERIAL BLOOD GAS pH 7.32 (7.35-7.45)
[2016-10-15 08:14] LABS: ALLEN TEST POS (POS); O2 ADMINISTRATION FIO2 50%
[2016-10-15] MEDS ORDERED: PIPERACILL/TAZOBAC CONSULT ACTIVE PRN (08:18)
[2016-10-15] MEDS ORDERED: LEVOFLOXACIN CONSULT ACTIVE PRN (08:19)
[2016-10-15] MEDS: INSULIN ASPART 100 UNITS/ML 3 ML PEN SC SCH ×4 (08:20→21:05)
--- NOTE | 2016-10-15 08:27 | Progress Note ---
Medicine Progress Note Date & Time of Visit: Oct 15, 2016 at 08:07. Subjective noted to be lethargic this morning CT head: no acute process ABG pH 7.32, PCO2 60, HCO3 30 on my exam, patient is lethargic, opens eyes to verbal stimuli and follows simple commands denies dyspnea, chest pain,headache, dizziness, nausea, abdominal pain Objective Last 8 Hrs Date Time Temp Pulse Resp B/P Pulse Ox O2 Delivery O2 Flow Rate FiO2 10/15/16 07:30 37.0 97 28 84/59 95 BiPAP 10/15/16 06:25 83 95 50 10/15/16 06:08 36.9 84 22 86/50 99 Non-Rebreather 6.0 10/15/16 04:00 37.0 79 14 87/56 94 Non-Rebreather 4.0 10/15/16 04:00 Nasal Cannula 4.0 Mask Physical Exam: General-oriented x 3, not in distress, lethargic on Bipap Eyes- EOMI, anicteric Neck- supple, no JVD, no adenopathy Lungs- clear breath sounds bilaterally, no rales/wheezing Heart- normal rate, regular rhythm; no murmurs Abdomen- normal bowel sounds, soft, nontender Extremities- grade 1-2 lower leg edema, no warmth/erythema/tenderness Neuro- lethargic; left sided weakness and lower leg weakness: chronic Skin- warm & dry Laboratory Results: Last 24 Hours Test 10/14/16 11:53 10/14/16 17:06 10/14/16 20:23 10/15/16 05:15 Bedside Glucose 89 mg/dl 118 mg/dl 165 mg/dl 135 mg/dl Test 10/15/16 05:47 10/15/16 07:34 10/15/16 07:46 10/15/16 07:52 White Blood Count 8.26 K/uL Red Blood Count 2.77 M/uL Hemoglobin 11.7 g/dL Hematocrit 35.8 % Mean Corpuscular Volume 129.2 fL Mean Corpuscular Hemoglobin 42.2 pg Mean Corpuscular Hemoglobin Concent 32.7 g/dl Platelet Count 196 K/uL Mean Platelet Volume 9.6 fL Neutrophils (%) (Auto) 69.4 % Lymphocytes (%) (Auto) 21.4 % Monocytes (%) (Auto) 9.0 % Eosinophils (%) (Auto) 0.1 % Basophils (%) (Auto) 0.0 % Neutrophils # (Auto) 5.73 K/uL Lymphocytes # (Auto) 1.77 K/uL Monocytes # (Auto) 0.74 K/uL Eosinophils # (Auto) 0.01 K/uL Basophils # (Auto) 0.00 K/uL RDW Standard Deviation 70.7 fL RDW Coefficient of Variation 14.9 % Immature Granulocyte % (Auto) 0.1 % Immature Granulocyte # (Auto) 0.01 K/uL Macrocytosis PRESENT Arterial Blood pH 7.34 Arterial Blood Partial Pressure CO2 60 mmHg Arterial Blood Partial Pressure O2 150 mm/Hg Arterial Blood HCO3 31 mmol/L Arterial Blood Oxygen Saturation 98.1 % Arterial Blood Base Excess 4.1 mEq/L Arterial Blood Gas Delivery 6 L Neptali Test POS Sodium Level 138 mmol/L Potassium Level 4.3 mmol/L Chloride Level 102 mmol/L Carbon Dioxide Level 32 mmol/L Anion Gap 4.0 mmol/L Blood Urea Nitrogen 44 mg/dl Creatinine 1.40 mg/dl Est Creatinine Clear Calc Drug Dose 37.3 ml/min Estimated GFR () 44.0 Estimated GFR (Non- 38.0 BUN/Creatinine Ratio 31.4 Random Glucose 124 mg/dl Calcium Level 8.4 mg/dl Date/Time Source Procedure Growth Status 10/15/16 07:46 Urine,Catheterized Urine Culture Pending Ordered Assessment & Plan 71 year old female with history of CHF Diastolic Type and Moderate Mitral Regurgitation, DM, HTN, Multiple Sclerosis, DVT and PE on Xarelto, Obstructive Sleep Apnea, presenting with shortness of breath and leg swelling x few days. ACUTE EXACERBATION OF CHF, SYSTOLIC - presented with hypoxia, shortness of breath, wheezing, increased leg swelling - usually on Lasix 20mg PO daily - started with lasix 40mg IV BID -350cc so far - echo: * -- Conclusions -- * The left ventricle is normal in size. * There is moderate concentric left ventricular hypertrophy. * Left ventricular systolic function is mildly reduced. * Ejection Fraction = 45-50%. * The right ventricular systolic function is normal. * The left atrial size is normal. * Right atrial size is normal. * The mitral valve leaflets appear thickened, but open well. * There is mild to moderate mitral regurgitation. - today, crea elevated at 1.4 from 0.8 hypotensive systolic 80s hold Lasix - will consult Cardiology LETHARGY- POSSIBLE TOXIC METABOLIC ENCEPHALOPATHY FROM: CT head: no acute process POSSIBLE SEPSIS- UTI, Bronchitis? - has cloudy, foul smelling urine - ff up blood and urine cultures check lactic acid - start Zosyn, continue Levaquin bolus of total 1 L of NSS ordered - monitor BP ACUTE RENAL FAILURE - will consult Nephrology HYPOTENSION - from possible Sepsis and Hypovolemia - management as noted above DM Type II: hold glipizide A1c 5.3 ISS, Accu checks, Diabetic diet HTN presently hypotensive hold Carvedilol, Lisinopril Multiple Sclerosis: yesterday, no change in baseline today, lethargic, follows simple commands hold baclofen continue Doxepine H/O DVT and PE Continue Xarelto Polycythemia Vera: reduce Hydroxyurea to 500mg daily due to acute renal failure HLP: continue statin DVT Px: on Xarelto Disposition: pending Current Inpatient Medications: Current Inpatient Medications Medications (Trade) Dose Ordered Sig/Yesenia Route Start Time Stop Time Status Last Admin Dose Admin Acetaminophen (Tylenol Tab) 650 mg Q4H PRN PO 10/14/16 04:45 11/13/16 04:44 Ondansetron HCl (Zofran Inj) 4 mg Q6H PRN IV 10/14/16 04:45 11/13/16 04:44 Albuterol/ Ipratropium (Duoneb) 3 ml Q4R PRN INH 10/14/16 04:45 11/13/16 04:44 Insulin Aspart (novoLOG ASPART) SLIDING SCALE If C... ACHS SC 10/14/16 08:00 11/13/16 07:59 10/14/16 22:09 1 UNITS Glucose (Glucose 40% Gel) 15-30 GRAMS 15 GRAMS... UD PRN PO 10/14/16 05:00 11/13/16 04:59 Glucose (Glucose Chew Tab) 4-8 Tablets 4 Tabl... UD PRN PO 10/14/16 05:00 11/13/16 04:59 Dextrose (Dextrose 50% 50ML Syringe) 25-50ML OF 50% DW IV FOR... UD PRN IV 10/14/16 05:00 11/13/16 04:59 Glucagon (Glucagon Inj) 1 mg UD PRN SQ 10/14/16 05:00 11/13/16 04:59 Ascorbic Acid (Vitamin C Tab) 500 mg DAILY PO 10/14/16 09:00 11/13/16 08:59 10/14/16 09:16 500 MG Cyanocobalamin (Vitamin B-12 Tab) 1,000 mcg DAILY PO 10/14/16 09:00 11/13/16 08:59 10/14/16 09:17 1,000 MCG Docusate Sodium (coLACE CAP) 100 mg HS PO 10/14/16 21:00 11/13/16 20:59 10/14/16 22:05 100 MG Doxepin HCl (Sinequan Cap) 50 mg HS PO 10/14/16 21:00 11/13/16 20:59 10/14/16 22:06 50 MG Folic Acid (Folvite Tab) 1 mg QAM PO 10/14/16 09:00 11/13/16 08:59 10/14/16 09:17 1 MG Hydroxyurea (Hydrea Cap) 1,000 mg QPM PO 10/14/16 21:00 11/13/16 20:59 10/14/16 22:10 1,000 MG Magnesium Oxide (Mag-Ox Tab) 400 mg HS PO 10/14/16 21:00 11/13/16 20:59 10/14/16 22:06 400 MG Pravastatin Sodium (Pravachol Tab) 20 mg HS PO 10/14/16 21:00 11/13/16 20:59 10/14/16 22:06 20 MG Pyridoxine HCl (Vitamin B-6 Tab) 25 mg DAILY PO 10/14/16 09:00 11/13/16 08:59 10/14/16 09:19 25 MG Rivaroxaban (Xarelto Tab) 20 mg QPM PO 10/14/16 21:00 11/13/16 20:59 10/14/16 22:07 20 MG xb-Lhbsy-Mriswqydcj Acetate (Vitamin E Cap) 400 interunit DAILY PO 10/14/16 09:00 11/13/16 08:59 10/14/16 09:18 400 INTERUNIT Cholecalciferol (Vitamin D Tab) 2,000 inter.unit DAILY PO 10/14/16 09:00 11/13/16 08:59 10/14/16 09:19 2,000 INTER.UNIT Miscellaneous Information (Pharmacy Consult) 1 ea NOW STAT N/A 10/15/16 07:34 10/15/16 07:35 UNV Miscellaneous Information (Nursing Verbal Med Order) 1 ea ONE ONCE N/A 10/15/16 07:45 10/15/16 07:46 UNV Miscellaneous Information (Pharmacy Consult) 1 ea NOW STAT N/A 10/15/16 08:00 10/15/16 08:01 UNV
[2016-10-15] MEDS ORDERED: SODIUM CHLORIDE 0.9% 1000ML 1,000 ML IV SCH (08:30)
[2016-10-15 08:34] LABS: URINE APPEARANCE TURBID (CLEAR); URINE COLOR DK YELLOW; URINE EPITHELIAL CELL AUTO >30 /lpf (0-5); URINE NITRITE NEG (NEG); URINE SPECIFIC GRAVITY 1.022 (1.000-1.030); UROBILINOGEN NEG (NEG)
[2016-10-15 08:55] LABS: MANUAL MICROSCOPIC REQUIRED? NO; REVIEW REQ? YES; URINE BILIRUBIN NEG (NEG)
[2016-10-15] MEDS: ASCORBIC ACID 500 MG TAB PO SCH (09:00)
[2016-10-15] MEDS: TOCOPHERYL, DL-ALPHA 400 INTER.UNIT CAP PO SCH (09:00)
[2016-10-15] MEDS: PYRIDOXINE HCL 50 MG TAB PO SCH (09:00)
[2016-10-15] MEDS ORDERED: PIPERACILL/TAZOBAC IV 3.375 GM in DEXTROSE 5% 100ML IV ONE (09:00)
[2016-10-15] MEDS: CYANOCOBALAMIN 500 MCG TAB (VIT B-12) PO SCH (09:00)
[2016-10-15] MEDS: CHOLECALCIFEROL 1000 INTER.UNIT TAB PO SCH (09:00)
--- NOTE | 2016-10-15 10:14 | Progress Note ---
Progress Note Date of Service Oct 15, 2016. Progress Note atttending addendum patient re-evaluated upon transfer to 238,then re-evaluated again 1012am still drowsy, awakens to tactile stimuli, follows simple commands, can bus cleaner my fingers with both hands right>left denies shortness of breath, chest pain, nausea, dizziness BP still 84/50s, on non rebreather discussed case with patient and her re: transfer to ICU also discussed case with Dr. Ryne Haque was consulted for possible MS flare, IV steroids that recommended at this time Jaydon Mitchell MD
[2016-10-15] MEDS: SODIUM CHLORIDE 0.9% 500ML 500 ML IV SCH ×2 (10:20→10:31)
--- NOTE | 2016-10-15 10:53 | CARDIOLOGY CONSULTATION ---
DATE OF CONSULTATION: 10/15/2016 REFERRING PHYSICIAN: Deven kasper. REASON FOR CONSULTATION: Shortness of breath. HISTORY OF PRESENT ILLNESS: This is a 71-year-old complex patient with a history of multiple myeloma, polycythemia vera, type 2 diabetes, DVT, on chronic anticoagulation, and a history of diastolic heart failure. She was admitted with worsening shortness of breath and fatigue. There are also some complaints of leg swelling. She is not a good historian and the information is taken from the medical record. She was treated with intravenous Lasix last night with the thought that she was in congestive heart failure. Unfortunately, that has resulted in elevated creatinine due to azotemia and hypotension, most likely from dehydration. Her echocardiogram this morning shows fairly good LV function with an estimated left ventricular ejection fraction between 45% and 50%. There is no evidence of pulmonary hypertension. Moderate mitral regurgitation and no other significant valvular pathology. According to records, she has no significant history of heart disease such as coronary stents, myocardial infarction, or cardiac arrhythmias. She is listed as having chronic diastolic heart failure. Her is in the room with her. She has decompensated further with additional mental status changes and is now on 100% nonrebreather. She is being transferred to the ICU. She is also hypotensive and receiving IV fluids. SOCIAL HISTORY: She is a former cigarette smoker. She is . FAMILY MEDICAL HISTORY: Noncontributory. REVIEW OF SYSTEMS: Unobtainable. PHYSICAL EXAMINATION: GENERAL: The patient is alert but not responsive. She is on 100% nonrebreather oxygen mask. VITAL SIGNS: Blood pressure is 90/60, pulse is regular at 100 beats per minute. She is afebrile. HEENT: She is normocephalic. Pupils are equal and reactive to light. NECK: The neck veins are flat. Carotids have good upstrokes bilaterally without bruits. Thyroid is nonpalpable. RESPIRATORY: Breath sounds equal bilaterally and clear to auscultation. GASTROINTESTINAL: Abdomen soft, nontender, without organomegaly. EXTREMITIES: Free of edema, digit clubbing, or cyanosis. NEUROLOGIC: Grossly intact. SKIN: Warm to touch. LYMPH NODES: Negative to palpation. LABORATORY DATA: Cardiac troponins [id number]-[id number]-lmgs are negative. Pro-natriuretic peptide was 162. Creatinine on admission 0.64 and is 1.4 today. Potassium is 4.3. IMPRESSION: 1. Progressive respiratory failure. 2. History of multiple sclerosis. 3. History of polycythemia vera. 4. Hypercoagulable with history of deep vein thrombosis. 5. Acute renal failure due to dehydration. RECOMMENDATIONS: At this time, I would not recommend any additional cardiac workup. She is being transferred to the ICU and the thought at this point might be that she has sepsis and will be treated appropriately. She may also be having exacerbation of her multiple sclerosis. We will follow along with you after her transfer to the ICU. Thank you.
[2016-10-15] MEDS ORDERED: SODIUM CHLORIDE 0.9% 500ML 500 ML IV SCH (12:15)
[2016-10-15] MEDS ORDERED: VASOPRESSIN INJ 50 UNITS in SODIUM CHLORIDE 0.9% 500ML 500 ML IV PRN (12:23)
--- NOTE | 2016-10-15 12:47 | NEPHROLOGY CONSULTATION ---
DATE OF CONSULTATION: 10/15/2016 ATTENDING OF RECORD: Dr. Mitchell. REASON FOR CONSULTATION: MELODY. HISTORY OF PRESENT ILLNESS: This is a 71-year-old female with significant history of multiple sclerosis who presented with worsening leg swelling and shortness of breath. The patient is very lethargic this morning and unable to give a history. I obtained the history from chart review. The patient has had worsening bilateral lower extremity swelling for the past couple of weeks as well as progressively worsening shortness of breath, thought to be secondary to congestive heart failure/diastolic heart failure and was given IV Lasix. Echo was done which showed EF of 45%-50%. RV systolic function is normal, moderate concentric LVH. Mild to moderate MR. The patient though this morning was much more lethargic. Blood cultures are negative. Urine culture is pending and the urine in the Shaffer catheter looks suspicious for UTI. Creatinine has gone from 0.64 to 1.40 and the blood pressures were in the 100s initially and now in the 80s. Was on BiPAP this morning and now switched to a nonrebreather. ABG showed a pH of 7.32, pCO2 of 61, pO2 of 98, and bicarbonate of 30. The patient put out 350 mL overnight. REVIEW OF SYSTEMS: Unobtainable. PAST MEDICAL HISTORY: Type 2 diabetes, multiple sclerosis, hypertension, history of DVT on chronic anticoagulation with a history of a PE in the past as well; hyperlipidemia, multiple sclerosis, on oxygen at night of about 4 liters baseline, history of P vera. PAST SURGICAL HISTORY: unobtainable FAMILY HISTORY: No renal disease in family per records. SOCIAL HISTORY: Former smoker, no alcohol, no drugs. CURRENT MEDICATIONS: Levaquin 750 mg IV q. 48 hours, hydroxyurea 500 mg at night, Zosyn 3.375 IV q. 8, Colace 100 mg at night, doxepin 50 mg at night, mag oxide 400 mg at night, Pravachol 20 mg at night, Xarelto 20 mg at night, vitamin C 500 mg daily, vitamin B12 1000 mcg daily, folic acid 1 mg daily, vitamin B6 25 mg daily, vitamin D 2000 units daily, vitamin E 400 daily, sliding-scale insulin. PHYSICAL EXAMINATION: VITAL SIGNS: Temperature is 37, pulse 84, respiratory rate is 28, blood pressures 86/57 satting 95% on BiPAP. GENERAL: Lethargic. EYES: No scleral icterus. ENT: Moist mucous membranes. NECK: Supple. PULMONARY: Poor inspiratory effort. CARDIAC: Distant heart sounds. ABDOMEN: Bowel sounds positive, soft, nontender. EXTREMITIES: +2 edema. NEUROLOGICALLY: Lethargic. DERMATOLOGIC: No rash or ulcers noted. LABORATORIES: Sodium level is 138, potassium 4.3, chloride is 102, bicarbonate is 32, BUN is 44, creatinine is 1.4, glucose 124, calcium is 8.4, lactic acid is 1. White count is 8, H\T\H 11 and 35, platelet count is 196. UA shows a pH of 5, specific gravity 1.022, 2+ protein, trace ketones, 3+ blood, large leukocyte esterase, greater than 30 WBCs, greater than 30 RBCs with calcium oxalate crystals. INR is 1.3. Blood cultures negative. Urine cultures pending. Chest x-ray shows low lung volumes with a marked elevation of the right hemidiaphragm, bibasilar densities persist, may represent atelectasis with some mild pulmonary vascular congestion again noted. IMPRESSION AND PLAN: 1. Acute kidney injury with a creatinine that has gone from 0.64 to 1.40 in the setting of hypotension with blood pressures, systolics in the 80s with attempted diuresis initially secondary to volume overload with worsening edema, weight gain and worsening shortness of breath. The patient now appears to have urinary tract infection with hypotension and may have multiple sclerosis flareup. Did require fluid bolus this morning for blood pressure support. Lasix has been stopped. I would like to check a renal ultrasound as well as random urine sodium, creatinine likely to continue to worsen as we try to stabilize the patient in terms of improving blood pressures and improving mental status and stabilizing airway. Was on BiPAP; however, does not appear to have improved mental status, perhaps may benefit from steroids given her multiple sclerosis in the setting of an infection, currently on Levaquin and Zosyn. No indication for emergent dialysis at this time; however, the patient's mental status has deteriorated, blood pressures are low, has been moved to telemetry and currently now requiring BiPAP. Overall, poor prognosis. LEADING DIAGNOSIS: Urinary tract infection. Given her volume overload issues, would like to check a urine for protein to creatinine, although may be inaccurate in the setting of acute kidney injury. Liver function tests were normal on admission with a ProBNP of 162, albumin level of 3.2, so do not feel that this is secondary to any type of liver disease in terms of volume overload and echo does not suggest a right-sided heart failure. Overall, continue to hold the diuretics, would give fluids as needed to maintain blood pressure. Follow closely with a low threshold to transfer to the intensive care unit and consider initiation of steroids in the setting of infection with multiple sclerosis. Would like to hold her xarelto in setting of MELODY and if necessary use heparin for anticoagulation. Appreciate consultation. JIMMY
--- NOTE | 2016-10-15 12:57 | Neurology Consultation ---
Neurology Consultation Date of Consultation: Oct 15, 2016. Attending Physician: Jaydon Mitchell MD Primary Care Physician: Carol Avalos M.D. Reason for Consultation: flare MS? History of Present Illness Source: patient, family, spouse Namrata is a 71 yr old female with PMH- MS, Polycythemia vera, DM II, DVT on chronic anticoagulation, HTN, Diastolic CHF According to and daughter in the room she was having SOB and worsening leg swelling. Her breathing started to getting progressively worsening and her bilateral leg swelling has been worsening over the past 2 weeks. She was having off and on fevers. She is currently responding to yes no answers appropriately but she is very lethargic. She is bed bound at baseline no longer walks and sometimes is OOB for feedings. She sometimes will feed herself according to daughter finger food but needs assistance for most of her ADLs. Past Medical/Surgical History Medical Problems: (1) Congestive heart failure Status: Acute Social History Alcohol Use: none Drug Use: none Marital Status: Housing Status: lives with family Occupation Status: disabled Allergies Coded Allergies: No Known Allergies (Verified , 03/18/14) Current Inpatient Medications Current Inpatient Medications Medications (Trade) Dose Ordered Sig/Yesenia Route Start Time Stop Time Status Last Admin Dose Admin Acetaminophen (Tylenol Tab) 650 mg Q4H PRN PO 10/14/16 04:45 11/13/16 04:44 Ondansetron HCl (Zofran Inj) 4 mg Q6H PRN IV 10/14/16 04:45 11/13/16 04:44 Albuterol/ Ipratropium (Duoneb) 3 ml Q4R PRN INH 10/14/16 04:45 11/13/16 04:44 Insulin Aspart (novoLOG ASPART) SLIDING SCALE If C... ACHS SC 10/14/16 08:00 11/13/16 07:59 10/14/16 22:09 1 UNITS Glucose (Glucose 40% Gel) 15-30 GRAMS 15 GRAMS... UD PRN PO 10/14/16 05:00 11/13/16 04:59 Glucose (Glucose Chew Tab) 4-8 Tablets 4 Tabl... UD PRN PO 10/14/16 05:00 11/13/16 04:59 Dextrose (Dextrose 50% 50ML Syringe) 25-50ML OF 50% DW IV FOR... UD PRN IV 10/14/16 05:00 11/13/16 04:59 Glucagon (Glucagon Inj) 1 mg UD PRN SQ 10/14/16 05:00 11/13/16 04:59 Ascorbic Acid (Vitamin C Tab) 500 mg DAILY PO 10/14/16 09:00 11/13/16 08:59 10/14/16 09:16 500 MG Cyanocobalamin (Vitamin B-12 Tab) 1,000 mcg DAILY PO 10/14/16 09:00 11/13/16 08:59 10/14/16 09:17 1,000 MCG Docusate Sodium (coLACE CAP) 100 mg HS PO 10/14/16 21:00 11/13/16 20:59 10/14/16 22:05 100 MG Doxepin HCl (Sinequan Cap) 50 mg HS PO 10/14/16 21:00 11/13/16 20:59 10/14/16 22:06 50 MG Folic Acid (Folvite Tab) 1 mg QAM PO 10/14/16 09:00 11/13/16 08:59 10/14/16 09:17 1 MG Magnesium Oxide (Mag-Ox Tab) 400 mg HS PO 10/14/16 21:00 11/13/16 20:59 10/14/16 22:06 400 MG Pravastatin Sodium (Pravachol Tab) 20 mg HS PO 10/14/16 21:00 11/13/16 20:59 10/14/16 22:06 20 MG Pyridoxine HCl (Vitamin B-6 Tab) 25 mg DAILY PO 10/14/16 09:00 11/13/16 08:59 10/14/16 09:19 25 MG Rivaroxaban (Xarelto Tab) 20 mg QPM PO 10/14/16 21:00 11/13/16 20:59 Future Hold 10/14/16 22:07 20 MG on-Wlxqj-Antjctrlgh Acetate (Vitamin E Cap) 400 interunit DAILY PO 10/14/16 09:00 11/13/16 08:59 10/14/16 09:18 400 INTERUNIT Cholecalciferol (Vitamin D Tab) 2,000 inter.unit DAILY PO 10/14/16 09:00 11/13/16 08:59 10/14/16 09:19 2,000 INTER.UNIT Piperacillin Sod/ Tazobactam Sod (Consult) 1 ea UD PRN N/A 10/15/16 08:18 11/14/16 08:17 Levofloxacin (Consult) 1 ea UD PRN N/A 10/15/16 08:19 11/14/16 08:18 Hydroxyurea 500 mg 500 mg QPM PO 10/15/16 21:00 11/14/16 20:59 Levofloxacin 750 mg/Prmx 150 ml @ 100 mls/hr Q48H IV 10/17/16 02:00 10/22/16 01:59 Piperacillin Sod/ Tazobactam Sod 3.375 gm/Dextrose 115 ml @ 28.75 mls/ hr Q8H IV 10/15/16 16:00 10/22/16 15:59 Sodium Chloride 500 ml @ 999 mls/hr Q31M IV 10/15/16 12:15 10/15/16 12:45 Vasopressin 50 units/Sodium Chloride 502.5 ml @ 0 mls/hr Q0M PRN IV 10/15/16 12:23 11/14/16 12:22 Hydrocortisone Sodium Succinate/ Syringe (Solu-Cortef IV/ Syringe) 2 ml @ 4 mls/min Q8 IV 10/15/16 14:00 11/14/16 13:59 UNV Physical Exam Vital Signs (Past 24 Hrs): Date Time Temp Pulse Resp B/P Pulse Ox O2 Delivery O2 Flow Rate FiO2 10/15/16 08:45 37.0 84 28 86/57 95 BiPAP 10/15/16 08:21 37.0 97 28 95 6.0 10/15/16 07:30 37.0 97 28 84/59 95 BiPAP 10/15/16 06:25 83 95 50 10/15/16 06:08 36.9 84 22 86/50 99 Non-Rebreather 6.0 10/15/16 04:00 37.0 79 14 87/56 94 Non-Rebreather 4.0 10/15/16 04:00 Nasal Cannula 4.0 Mask 10/15/16 00:00 Nasal Cannula 4.0 Mask 10/14/16 23:57 37.4 66 16 105/71 93 Nasal Cannula 4.0 10/14/16 21:50 97 112/78 91 Nasal Cannula 4.0 10/14/16 20:40 90 108/74 10/14/16 20:00 92 Nasal Cannula 4.0 10/14/16 16:00 92 Nasal Cannula 4.0 10/14/16 15:18 36.4 80 16 91/60 92 4.0 Physical Exam: Constitutional: appearance ill appearing female on non rebreather removes it and doesn't want it back on then allows it. Ears, Nose, Mouth and Throat: mucous membranes moist, no injection and skin normal, eyes normal Cardiovascular: normal S-1 and S-2 and regular rate and rhythm Respiratory: course breath sounds bilaterally very wet. Musculoskeletal: no peripheral edema and good distal pulses Skin: no stigmata of neurocutaneous disease noted and normal and intact Eyes: opens eyes briefly with command. NEUROLOGIC EXAMINATION: Mental status: Alert to voice command Cranial Nerves face appear symmetric, Reflexes: Deep tendon reflexes decreased bilaterally (legs are swollen bilaterally) up going toes Sensory: asked if can feel light touch she states no Gait/Stance: Posture lying in bed Strength: squeezes with hands and pulls with right arm 5/5 left hand 3/5 does not resist with pulling pushing. does not move LE spontaneously or with command Laboratory Results Past 24 Hours: 10/15/16 05:47 Red Blood Count 2.77, Mean Corpuscular Volume 129.2, Mean Corpuscular Hemoglobin 42.2, Mean Corpuscular Hemoglobin Concent 32.7, Mean Platelet Volume 9.6, Neutrophils (%) (Auto) 69.4, Lymphocytes (%) (Auto) 21.4, Monocytes (%) ( Auto) 9.0, Eosinophils (%) (Auto) 0.1, Basophils (%) (Auto) 0.0, Neutrophils # ( Auto) 5.73, Lymphocytes # (Auto) 1.77, Monocytes # (Auto) 0.74, Eosinophils # ( Auto) 0.01, Basophils # (Auto) 0.00 10/15/16 05:47 Test 10/15/16 05:47 10/15/16 07:40 10/15/16 08:00 10/15/16 08:40 White Blood Count 8.26 K/uL (4.8-10.8) Red Blood Count 2.77 M/uL (4.2-5.4) Hemoglobin 11.7 g/dL (12.0-16.0) Hematocrit 35.8 % (37-47) Mean Corpuscular Volume 129.2 fL (80-100) Mean Corpuscular Hemoglobin 42.2 pg (25-34) Mean Corpuscular Hemoglobin Concent 32.7 g/dl (32-36) Platelet Count 196 K/uL (130-400) Mean Platelet Volume 9.6 fL (7.4-10.4) Neutrophils (%) (Auto) 69.4 % Lymphocytes (%) (Auto) 21.4 % Monocytes (%) (Auto) 9.0 % Eosinophils (%) (Auto) 0.1 % Basophils (%) (Auto) 0.0 % Neutrophils # (Auto) 5.73 K/uL (1.4-6.5) Lymphocytes # (Auto) 1.77 K/uL (1.2-3.4) Monocytes # (Auto) 0.74 K/uL (0.11-0.59) Eosinophils # (Auto) 0.01 K/uL (0-0.5) Basophils # (Auto) 0.00 K/uL (0-0.2) RDW Standard Deviation 70.7 fL (36.4-46.3) RDW Coefficient of Variation 14.9 % (11.5-14.5) Immature Granulocyte % (Auto) 0.1 % Immature Granulocyte # (Auto) 0.01 K/uL (0.00-0.02) Macrocytosis PRESENT Anion Gap 4.0 mmol/L (3-11) Est Creatinine Clear Calc Drug Dose 37.3 ml/min Estimated GFR () 44.0 Estimated GFR (Non- 38.0 BUN/Creatinine Ratio 31.4 (10-20) Calcium Level 8.4 mg/dl (8.5-10.1) Urine Color DK YELLOW Urine Appearance TURBID (CLEAR) Urine pH 5.0 (4.5-7.5) Urine Specific [place] 1.022 (1.000-1.030) Urine Protein 2+ (NEG) Urine Glucose (UA) NEG (NEG) Urine Ketones TRACE (NEG) Urine Occult Blood 3+ (NEG) Urine Nitrite NEG (NEG) Urine Bilirubin NEG (NEG) Urine Urobilinogen NEG (NEG) Urine Leukocyte Esterase LARGE (NEG) Urine WBC (Auto) >30 /hpf (0-5) Urine RBC (Auto) >30 /hpf (0-4) Urine Hyaline Casts (Auto) 1-5 /lpf (0-5) Urine Epithelial Cells (Auto) >30 /lpf (0-5) Urine Bacteria (Auto) 4+ (NEG) Urine Renal Epithelial Cells /lpf (0-5) Urine Crystals CALCIUM OXALATE (NONE Urine Pathogenic Casts /lpf (0) Urine Yeast (Auto) (NONE PRSENT) Arterial Blood pH 7.32 (7.35-7.45) Arterial Blood Partial Pressure CO2 61 mmHg (35-46) Arterial Blood Partial Pressure O2 98 mm/Hg (80-95) Arterial Blood HCO3 30 mmol/L (19-24) Arterial Blood Oxygen Saturation 95.1 % (90-95) Arterial Blood Base Excess 3.0 mEq/L (-9-1.8) Arterial Blood Gas Delivery FIO2 50% Neptali Test POS (POS) Lactic Acid Level 1.0 mmol/L (0.4-2.0) Test 10/15/16 10:38 10/15/16 12:21 Bedside Glucose 138 mg/dl (70-90) Imaging CXR- Overall, similar appearance to the prior study with low lung volumes and marked elevation of the right hemidiaphragm. Bibasilar densities persist and may represent atelectasis. Mild central pulmonary vascular congestion is again noted. CT head-No acute intracranial abnormality. Atrophy and microvascular ischemic changes. Stable 11 mm extra-axial mass within the left cerebellopontine angle cistern. Given the long-term stability this favors a meningioma. Impression 71 year old female SOB, increased pulmonary congestion, peripheral edema Plan 1. patient is no longer on MS medication due to advance disease 2. steroids can be used in a state of flare however respiratory issues seem to be the primary issue 3. according to family patient has been steadily declining in function and needs help with most of ADL 4. UA pending culture 5. URI may be issues but patient sounds very wet and may be issue with diastolic heart function 6. 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 Obviously if there a medical issues for which steroids would be indicated then I would support their use . we will follw but for now no need for active ms rx and see no role for reimaging the biochemistry technologist Yee Haque MD
--- NOTE | 2016-10-15 13:11 | Clinical Documentation Query ---
CLINICAL DOCUMENTATION QUERY Dr. BAUTISTA, In your clinical opinion is this patient being managed for: (X ) Acute respiratory failure ( ) Other explanation of clinical findings (Please Explain) ( ) Unable to determine (Please Define) ( ) Need to Discuss ( ) Not Agree The medical record reflects the following clinical findings, treatment, and risk factors. Clinical Indicators: 71 yo female presented with worsening dyspnea. Placed on O2 support by EMS. Resp rate 22 at time of ER arrival with O2 sat of 92% on 4L. CXR showed suspected small pleural effusions. Early AM 10/15 pt became increasingly lethargic and difficult to arouse. Resp rate 24-28 , BP 87/56, ABG 7.34/60/150/31, CT head showed suspected meningioma. Treatment: BIPAP, transferred to tele then to ICU, ABG's, repeat CXR, CT head, IV fluids boluses, IV zosyn, IV Lasix, cardiology consult Risk Factors: acute systolic CHF, possible sepsis,? Bronchitis Please clarify and document your clinical opinion in the progress notes and discharge summary. Terms such as "probable", "suspected", "likely", "questionable", "possible", or "still to be ruled out" are acceptable. IF IN AGREEMENT, YOU MUST DOCUMENT ABOVE DIAGNOSTIC STATEMENT IN DAILY PROGRESS NOTES AND DISCHARGE SUMMARY. This document is not part of the patient's record. Thank You, Malu Hubbard RN [phone]
--- NOTE | 2016-10-15 15:20 | DIAGNOSTIC IMAGING REPORT ---
SINGLE VIEW CHEST CLINICAL HISTORY: Abdominal distention. FINDINGS: An AP, portable, upright chest radiograph is compared to study performed earlier the same day 10/15/2016. The examination is severely degraded by portable technique and patient rotation. The heart is top normal in size. Emphysema and chronic interstitial thickening are similar to previous. There is chronic elevation of the right hemidiaphragm with bibasilar atelectasis. Trace pleural effusions are suspected. No airspace consolidation is identified typical for pneumonia. No pneumothorax is seen. The skeletal structures are osteopenic. Degenerative change is noted throughout the thoracic spine. Cholecystectomy clips are seen in the right upper quadrant. IMPRESSION: 1. Low lung volumes and chronic parenchymal changes as above. No significant change from study performed earlier today. 2. Suspect small pleural effusions. No airspace consolidation is seen typical for pneumonia. Electronically signed by: Aurelio Smith M.D. 10/15/2016 3:19 PM Dictated Date/Time: 10/15/2016 3:18 PM
--- NOTE | 2016-10-15 15:24 | DIAGNOSTIC IMAGING REPORT ---
KUB CLINICAL HISTORY: ABDOMINAL DISTENTION COMPARISON STUDY: No previous studies for comparison. FINDINGS: There is distention of the colon. The cecum measures 9.7 cm. There is a large amount of stool present within the rectal vault. This may indicate a fecal impaction. An apparent IUD is visualized. Of note, no IUD was visualized on a CT scan of the abdomen and pelvis performed March 2010. There is elevation right hemidiaphragm. There are surgical clips in the right upper quadrant suggesting a prior cholecystectomy. IMPRESSION: 1. Moderate gaseous distention of the colon. The cecum measures 9.7 cm uncorrected for magnification 2. Large amount of stool within the rectum and lower sigmoid. This may indicate a fecal impaction. Electronically signed by: Jerry Chen M.D. 10/15/2016 3:22 PM Dictated Date/Time: 10/15/2016 3:17 PM
[2016-10-15] MEDS: HYDROCORTISONE IV 100 MG in SYRINGE 0 ML IV SCH ×2 (17:02→21:45)
[2016-10-15] MEDS: PIPERACILL/TAZOBAC IV 3.375 GM in DEXTROSE 5% 100ML IV SCH (17:03)
[2016-10-15] MEDS: SODIUM CHLORIDE 0.9% 1000ML 1,000 ML IV SCH (19:02)
[2016-10-15] MEDS: DOCUSATE SODIUM 100 MG CAP PO SCH (20:50)
[2016-10-15] MEDS: PRAVASTATIN SOD 20 MG TAB PO SCH (20:51)
[2016-10-15] MEDS: MAGNESIUM OXIDE 400 MG TAB PO SCH (20:51)
[2016-10-15] MEDS: DOXEPIN HCL 25 MG CAP PO SCH (20:52)
--- NOTE | 2016-10-15 20:54 | DIAGNOSTIC IMAGING REPORT ---
BILATERAL LOWER EXTREMITY VENOUS DOPPLER CLINICAL HISTORY: Lower extremity swelling. COMPARISON STUDY: Right lower extremity venous Doppler March 18, 2014 TECHNIQUE: Sonography of the deep venous system of the bilateral lower extremities was performed. Compression and augmentation were evaluated. FINDINGS: The bilateral common femoral, superficial femoral and popliteal veins were compressible. Augmentation was normal. Flow was shown within the deep calf vessels. IMPRESSION: No evidence of deep venous thrombus within the bilateral lower extremities. Electronically signed by: Roland Rincon M.D. 10/15/2016 8:52 PM Dictated Date/Time: 10/15/2016 8:52 PM
[2016-10-15] MEDS ORDERED: HYDROXYUREA 500 MG CAP PO SCH (21:00)
--- NOTE | 2016-10-15 21:03 | Critical Care Consultation ---
Critical Care Consultation Date of Consultation: Oct 15, 2016. Attending Physician: Jaydon Mitchell MD Reason for Consultation: Hypotension, concern for sepsis History of Present Illness Patient is a 71-year-old female is Past medical history for multiple sclerosis, polycythemia vera, diabetes type 2 , DVT on chronic anticoagulation, hypertension, diastolic CHF who presented with increasing dyspnea which prompted a concern for worsening congestive heart failure. She was recently admitted to the hospital with the presumptive diagnosis of heart failure. This morning she had increasing shortness of breath , hypoxia, hypotension which prompted transfer to the intensive care unit. Family History No pertinent family history Social History Smoking Status: Former Smoker Alcohol Use: none Drug Use: none Marital Status: Housing Status: lives with family Occupation Status: disabled Allergies Coded Allergies: No Known Allergies (Verified , 03/18/14) Home Medications Scheduled Ascorbic Acid (Vitamin C), 500 MG PO DAILY Baclofen (Baclofen), 10 MG PO QID Carvedilol (Carvedilol), 3.125 MG PO BID Cholecalciferol (Vitamin D3), 1 CAP PO DAILY Cyanocobalamin (Vitamin B-12 1000 Mcg), 1,000 MCG PO DAILY Docusate Sodium (Docusate Sodium), 1 CAP PO HS Doxepin Hcl (Sinequan), 50 MG PO HS Folic Acid (Folic Acid), 1 MG PO QAM Furosemide (Lasix), 20 MG PO QAM Glipizide (Glucotrol), 2.5 MG PO BID Hydroxyurea (Hydrea Cap), 1,000 MG PO QPM Lisinopril (Lisinopril), 2.5 MG PO QAM Magnesium Oxide (Mag-Ox), 400 MG PO HS Potassium Chloride Microencaps (Potassium Chloride Er), 10 MEQ PO QAM Pravastatin (Pravachol ), 20 MG PO HS Pyridoxine HCl (Vitamin B6), 25 MG PO DAILY Rivaroxaban (Xarelto), 20 MG PO QPM Vitamin E (E400), 400 UNIT PO DAILY Scheduled PRN Loratadine (Claritin), 10 MG PO DAILY PRN for ALLERGY SX Current Inpatient Medications Current Inpatient Medications Medications (Trade) Dose Ordered Sig/Yesenia Route Start Time Stop Time Status Last Admin Dose Admin Acetaminophen (Tylenol Tab) 650 mg Q4H PRN PO 10/14/16 04:45 11/13/16 04:44 Ondansetron HCl (Zofran Inj) 4 mg Q6H PRN IV 10/14/16 04:45 11/13/16 04:44 Albuterol/ Ipratropium (Duoneb) 3 ml Q4R PRN INH 10/14/16 04:45 11/13/16 04:44 Insulin Aspart (novoLOG ASPART) SLIDING SCALE If C... ACHS SC 10/14/16 08:00 11/13/16 07:59 10/14/16 22:09 1 UNITS Glucose (Glucose 40% Gel) 15-30 GRAMS 15 GRAMS... UD PRN PO 10/14/16 05:00 11/13/16 04:59 Glucose (Glucose Chew Tab) 4-8 Tablets 4 Tabl... UD PRN PO 10/14/16 05:00 11/13/16 04:59 Dextrose (Dextrose 50% 50ML Syringe) 25-50ML OF 50% DW IV FOR... UD PRN IV 10/14/16 05:00 11/13/16 04:59 Glucagon (Glucagon Inj) 1 mg UD PRN SQ 10/14/16 05:00 11/13/16 04:59 Ascorbic Acid (Vitamin C Tab) 500 mg DAILY PO 10/14/16 09:00 11/13/16 08:59 10/14/16 09:16 500 MG Cyanocobalamin (Vitamin B-12 Tab) 1,000 mcg DAILY PO 10/14/16 09:00 11/13/16 08:59 10/14/16 09:17 1,000 MCG Docusate Sodium (coLACE CAP) 100 mg HS PO 10/14/16 21:00 11/13/16 20:59 10/14/16 22:05 100 MG Doxepin HCl (Sinequan Cap) 50 mg HS PO 10/14/16 21:00 11/13/16 20:59 10/14/16 22:06 50 MG Folic Acid (Folvite Tab) 1 mg QAM PO 10/14/16 09:00 11/13/16 08:59 10/14/16 09:17 1 MG Magnesium Oxide (Mag-Ox Tab) 400 mg HS PO 10/14/16 21:00 11/13/16 20:59 10/14/16 22:06 400 MG Pravastatin Sodium (Pravachol Tab) 20 mg HS PO 10/14/16 21:00 11/13/16 20:59 10/14/16 22:06 20 MG Pyridoxine HCl (Vitamin B-6 Tab) 25 mg DAILY PO 10/14/16 09:00 11/13/16 08:59 10/14/16 09:19 25 MG Rivaroxaban (Xarelto Tab) 20 mg QPM PO 10/14/16 21:00 11/13/16 20:59 Future Hold 10/14/16 22:07 20 MG zc-Dehqh-[id number] Acetate (Vitamin E Cap) 400 interunit DAILY PO 10/14/16 09:00 11/13/16 08:59 10/14/16 09:18 400 INTERUNIT Cholecalciferol (Vitamin D Tab) 2,000 inter.unit DAILY PO 10/14/16 09:00 11/13/16 08:59 10/14/16 09:19 2,000 INTER.UNIT Piperacillin Sod/ Tazobactam Sod (Consult) 1 ea UD PRN N/A 10/15/16 08:18 11/14/16 08:17 Levofloxacin (Consult) 1 ea UD PRN N/A 10/15/16 08:19 11/14/16 08:18 Hydroxyurea 500 mg 500 mg QPM PO 10/15/16 21:00 11/14/16 20:59 Levofloxacin 750 mg/Prmx 150 ml @ 100 mls/hr Q48H IV 10/17/16 02:00 10/22/16 01:59 Piperacillin Sod/ Tazobactam Sod 3.375 gm/Dextrose 115 ml @ 28.75 mls/ hr Q8H IV 10/15/16 16:00 10/22/16 15:59 10/15/16 17:03 28.75 MLS/HR Vasopressin 50 units/Sodium Chloride 502.5 ml @ 0 mls/hr Q0M PRN IV 10/15/16 12:23 11/14/16 12:22 10/15/16 13:09 24 MLS/HR Hydrocortisone Sodium Succinate 100 mg/Syringe 2 ml @ 4 mls/min Q8@0600,1400,2200 IV 10/15/16 14:30 11/14/16 14:29 10/15/16 17:02 4 MLS/MIN Sodium Chloride (Nss 1000ml) 1,000 ml @ 60 mls/hr [id number] IV 10/15/16 18:45 11/14/16 18:44 10/15/16 19:02 60 MLS/HR Physical Exam Date Time Temp Pulse Resp B/P Pulse Ox O2 Delivery O2 Flow Rate FiO2 10/15/16 20:00 36.8 83 20 106/57 96 High Flow Oxygen 50 10/15/16 20:00 95 High Flow Oxygen 50 10/15/16 19:30 78 97/64 95 High Flow Oxygen 50 10/15/16 19:15 77 107/46 95 High Flow Oxygen 50 10/15/16 19:00 83 116/61 96 High Flow Oxygen 50 10/15/16 18:00 93 18 112/82 96 High Flow Oxygen 50 10/15/16 16:30 81 20 108/71 93 High Flow Oxygen 50 10/15/16 16:15 74 20 100/57 96 High Flow Oxygen 50 10/15/16 16:00 36.3 78 20 105/58 96 High Flow Oxygen 50 10/15/16 16:00 96 High Flow Oxygen 50 10/15/16 14:00 78 20 118/66 92 High Flow Oxygen 60 10/15/16 12:30 82 21 94/58 100 Non-Rebreather 15.0 10/15/16 12:00 100 Non-Rebreather 15.0 10/15/16 12:00 78 21 75/49 99 Non-Rebreather 15.0 10/15/16 11:29 76 21 87/60 100 Non-Rebreather 15.0 10/15/16 11:04 36.8 81 21 88/52 99 Non-Rebreather 15.0 10/15/16 08:45 37.0 84 28 86/57 95 BiPAP 10/15/16 08:21 37.0 97 28 95 6.0 10/15/16 07:30 37.0 97 28 84/59 95 BiPAP 10/15/16 06:25 83 95 50 10/15/16 06:08 36.9 84 22 86/50 99 Non-Rebreather 6.0 10/15/16 04:00 37.0 79 14 87/56 94 Non-Rebreather 4.0 10/15/16 04:00 Nasal Cannula 4.0 Mask 10/15/16 00:00 Nasal Cannula 4.0 Mask 10/14/16 23:57 37.4 66 16 105/71 93 Nasal Cannula 4.0 10/14/16 21:50 97 112/78 91 Nasal Cannula 4.0 General Appearance: mild distress Head: normocephalic Eyes: PERRLA Neck: no tenderness, trachea midline, no stridor Respiratory: rhonchi (scattered bilaterally) Cardiovasular: regular rate/rhythm, normal S1S2, no murmur Abdomen: no rebound, no masses, no guarding, other (mild distention) Lower Extremities: edema (3+ edema) Edema: Bilateral LE (3+) Pulses: radial (R) (1+), radial (L) (1+) Neuro: alert Laboratory Results Last 24 Hours Test 10/15/16 05:15 10/15/16 05:47 10/15/16 07:31 10/15/16 07:40 Bedside Glucose 135 mg/dl 126 mg/dl White Blood Count 8.26 K/uL Red Blood Count 2.77 M/uL Hemoglobin 11.7 g/dL Hematocrit 35.8 % Mean Corpuscular Volume 129.2 fL Mean Corpuscular Hemoglobin 42.2 pg Mean Corpuscular Hemoglobin Concent 32.7 g/dl Platelet Count 196 K/uL Mean Platelet Volume 9.6 fL Neutrophils (%) (Auto) 69.4 % Lymphocytes (%) (Auto) 21.4 % Monocytes (%) (Auto) 9.0 % Eosinophils (%) (Auto) 0.1 % Basophils (%) (Auto) 0.0 % Neutrophils # (Auto) 5.73 K/uL Lymphocytes # (Auto) 1.77 K/uL Monocytes # (Auto) 0.74 K/uL Eosinophils # (Auto) 0.01 K/uL Basophils # (Auto) 0.00 K/uL RDW Standard Deviation 70.7 fL RDW Coefficient of Variation 14.9 % Immature Granulocyte % (Auto) 0.1 % Immature Granulocyte # (Auto) 0.01 K/uL Macrocytosis PRESENT Arterial Blood pH 7.34 Arterial Blood Partial Pressure CO2 60 mmHg Arterial Blood Partial Pressure O2 150 mm/Hg Arterial Blood HCO3 31 mmol/L Arterial Blood Oxygen Saturation 98.1 % Arterial Blood Base Excess 4.1 mEq/L Arterial Blood Gas Delivery 6 L Neptali Test POS Sodium Level 138 mmol/L Potassium Level 4.3 mmol/L Chloride Level 102 mmol/L Carbon Dioxide Level 32 mmol/L Anion Gap 4.0 mmol/L Blood Urea Nitrogen 44 mg/dl Creatinine 1.40 mg/dl Est Creatinine Clear Calc Drug Dose 37.3 ml/min Estimated GFR () 44.0 Estimated GFR (Non- 38.0 BUN/Creatinine Ratio 31.4 Random Glucose 124 mg/dl Calcium Level 8.4 mg/dl Urine Color DK YELLOW Urine Appearance TURBID Urine pH 5.0 Urine Specific [place] 1.022 Urine Protein 2+ Urine Glucose (UA) NEG Urine Ketones TRACE Urine Occult Blood 3+ Urine Nitrite NEG Urine Bilirubin NEG Urine Urobilinogen NEG Urine Leukocyte Esterase LARGE Urine WBC (Auto) >30 /hpf Urine RBC (Auto) >30 /hpf Urine Hyaline Casts (Auto) 1-5 /lpf Urine Epithelial Cells (Auto) >30 /lpf Urine Bacteria (Auto) 4+ Urine Renal Epithelial Cells /lpf Urine Crystals CALCIUM OXALATE Urine Pathogenic Casts /lpf Urine Yeast (Auto) Test 10/15/16 08:00 10/15/16 08:40 10/15/16 10:38 10/15/16 12:38 Arterial Blood pH 7.32 Arterial Blood Partial Pressure CO2 61 mmHg Arterial Blood Partial Pressure O2 98 mm/Hg Arterial Blood HCO3 30 mmol/L Arterial Blood Oxygen Saturation 95.1 % Arterial Blood Base Excess 3.0 mEq/L Arterial Blood Gas Delivery FIO2 50% Neptali Test POS Lactic Acid Level 1.0 mmol/L Bedside Glucose 138 mg/dl Procalcitonin < 0.05 ng/ml Random Cortisol 25.30 mcg/dl Test 10/15/16 13:30 10/15/16 14:32 10/15/16 16:55 Urine Random Sodium 14 mEq/L Troponin I < 0.015 ng/ml Pro-B-Type Natriuretic Peptide 75 pg/ml Bedside Glucose 137 mg/dl Diagnostic Results Echocardiogram obtained 10/14/2016 was reviewed: EF 45-50% Venous duplex study obtained 10/15/2016 formal report pending, renal ultrasound obtained 10/15/2016 formal report pending I reviewed the chest x-ray as well as report dated 10/15/2016 Assessment & Plan Reason Critically Ill: Hypotension, hypoxia, bacteremia gram-positive PLAN: Neuro: History multiple sclerosis, I have reviewed the neurology consultation Resp: Hypoxia, patient did not like/tolerates CPAP, improved on high flow nasal cannula patient does not want intubation CV: Hypotension, improved after stress dose steroids Fluids/Renal: Acute kidney injury, I have reviewed nephrology's consultation ID: Patient's pro calcitonin less than 0.05, negative lactic acid, will await microbiology culture of urine, will add vancomycin secondary to positive blood culture for gram-positive cocci. Discontinued Levaquin secondary to poor coverage via hospital antibiogram and Zosyn we'll provide adequate coverage GI/Nutrition: Nothing by mouth at this time Heme: History of polycythemia vera per medical records, mild anemia at the present time no leukocytosis platelet count 196 Endocrine: Blood sugars mildly elevated insulin as needed. Random cortisol resulted at 23 however given stress dose steroids in setting of relative hypotension. I have personally spent 65 minutes of critical care time in the direct management of this patient. This is a life/limb threatening event. This includes time spent evaluating patient, direct bedside care, chart review, placing orders, interpretation of diagnostic studies, discussion with consultants, patient, and family members, as well as other required patient management activities. This time is exclusive of all separately billable procedures, and teaching time and separate from and in addition to any other critical care service time. Patient appears to have capacity to consent to medical treatment, she did not want to be intubated, accordingly she appeared to understand implications of not being intubated during cardiac arrest and risks benefits of CPR. She does not want heroic measures undertaken in event of cardiac arrest this was discussed with her at the bedside. Accordingly patient's CODE STATUS is DO NOT RESUSCITATE in event of cardiac arrest Surrogate decision maker:
--- NOTE | 2016-10-15 21:06 | DIAGNOSTIC IMAGING REPORT ---
RENAL ULTRASOUND CLINICAL HISTORY: Acute kidney injury. COMPARISON STUDY: CT of the abdomen and pelvis March 30, 2010 and KUB October 15, 2016. TECHNIQUE: Sonography of the kidneys and the urinary bladder was performed. FINDINGS: This exam is significantly compromised by suboptimal penetration which particularly affects visualization of the right kidney. However, the right kidney measures approximately 11.6 x 6.7 x 6.9 cm and the left measures 10.9 x 5.7 x 4.9 cm. No hydronephrosis is identified. A Shaffer catheter is present within the bladder. Renal echogenicity, size and cortical thickness appear normal. IMPRESSION: Study significantly compromised by suboptimal penetration. No definite hydronephrosis identified. Electronically signed by: Roland Rincon M.D. 10/15/2016 9:05 PM Dictated Date/Time: 10/15/2016 9:03 PM
[2016-10-15] MEDS ORDERED: VANCOMYCIN INJ 1,600 MG in SODIUM CHLORIDE 0.9% 250ML 250 ML IV ONE (21:30)
[2016-10-15] MEDS ORDERED: VANCOMYCIN CONSULT ACTIVE PRN (21:30)
[2016-10-16] VITALS (26 sets, daily range): BP systolic 96–117; BP diastolic 43–71; PULSE 61–91; TEMP 36.6–37; O2SAT 87–98
[2016-10-16] MEDS: PIPERACILL/TAZOBAC IV 3.375 GM in DEXTROSE 5% 100ML IV SCH ×3 (00:17→17:13)
[2016-10-16 05:43] LABS: HEMATOCRIT 32.2 % (37-47); MEAN CELL VOLUME 128.8 fL (80-100); MEAN CORPUSCULAR HGB CONC 32.6 g/dl (32-36); MEAN PLATELET VOLUME 9.6 fL (7.4-10.4); PLATELET COUNT 181 K/uL (130-400); WHITE BLOOD COUNT 5.17 K/uL (4.8-10.8)
[2016-10-16 06:14] LABS: BUN/CREATININE RATIO 56.8 (10-20); CALCIUM 8.1 mg/dl (8.5-10.1); CREATININE 0.65 mg/dl (0.60-1.20); MAGNESIUM 2.7 mg/dl (1.8-2.4); PHOSPHORUS 2.9 mg/dl (2.5-4.9); POTASSIUM 4.1 mmol/L (3.5-5.1)
[2016-10-16] MEDS: SODIUM CHLORIDE 0.9% 1000ML 1,000 ML IV SCH (06:15)
[2016-10-16] MEDS: HYDROCORTISONE IV 100 MG in SYRINGE 0 ML IV SCH ×3 (06:16→22:00)
[2016-10-16] MEDS: ASCORBIC ACID 500 MG TAB PO SCH (08:02)
[2016-10-16] MEDS: TOCOPHERYL, DL-ALPHA 400 INTER.UNIT CAP PO SCH (08:07)
[2016-10-16] MEDS: CHOLECALCIFEROL 1000 INTER.UNIT TAB PO SCH (08:07)
[2016-10-16] MEDS: PYRIDOXINE HCL 50 MG TAB PO SCH (08:08)
[2016-10-16] MEDS: CYANOCOBALAMIN 500 MCG TAB (VIT B-12) PO SCH (08:09)
--- NOTE | 2016-10-16 09:05 | Critical Care Progress Note ---
Critical Care Progress Note Date of Service Oct 16, 2016. ICU Day ICU Day Number: [address] Michele Subjective Shortness of breath resolved with high flow nasal cannula. Objective General Appearance: Resting comfortably Head: normocephalic Eyes: PERRLA Neck: no tenderness, trachea midline, no stridor Respiratory: rhonchi (scattered bilaterally) Cardiovasular: regular rate/rhythm, normal S1S2, no murmur Abdomen: no rebound, no masses, no guarding, other (mild distention) Lower Extremities: edema (3+ edema) Edema: Bilateral LE (3+) Pulses: radial (R) (1+), radial (L) (1+) Neuro: alert Current SOFA Score SOFA Score Response (Comments) Value SaO2 / FIO2 142 - 220 2 Total 2 Assessment & Plan PLAN: Neuro: Reviewed neurology recommendations Resp: Hypoxia, improved on high flow nasal cannula patient does not want intubation wean FiO2 as tolerated CV: Hypotension, improved after stress dose steroids, discontinue vasopressin today Fluids/Renal: Acute kidney injury improving ID: Coagulase-negative staphylococcus, repeat blood cultures obtained 1 bottle of 2, I suspect this is a contaminant, serial procalcitonin, however would only treat for 7 days GI/Nutrition: Nothing by mouth at this time Heme: History of polycythemia vera per medical records, mild anemia at the present time no leukocytosis platelet count 196 Endocrine: Currently on stress dose steroids until time a resolution of of hypotension CODE STATUS: DO NOT RESUSCITATE in event of cardiac arrest Patient critically ill due to hypotension and coagulase-negative staphylococcal bacteremia I have personally spent 37 minutes of critical care time in the direct management of this patient. This is a life/limb threatening event. This includes time spent evaluating patient, direct bedside care, chart review, placing orders, interpretation of diagnostic studies, discussion with consultants, patient, and family members, as well as other required patient management activities. This time is exclusive of all separately billable procedures, and teaching time and separate from and in addition to any other critical care service time. Consults & Procedures Consultants: Cardiology Nephrology Neurology Procedures: Not applicable Data Medications: Current Inpatient Medications Medications (Trade) Dose Ordered Sig/Yesenia Route Start Time Stop Time Status Last Admin Dose Admin Acetaminophen (Tylenol Tab) 650 mg Q4H PRN PO 10/14/16 04:45 11/13/16 04:44 Ondansetron HCl (Zofran Inj) 4 mg Q6H PRN IV 10/14/16 04:45 11/13/16 04:44 Albuterol/ Ipratropium (Duoneb) 3 ml Q4R PRN INH 10/14/16 04:45 11/13/16 04:44 Insulin Aspart (novoLOG ASPART) SLIDING SCALE If C... ACHS SC 10/14/16 08:00 11/13/16 07:59 10/15/16 21:05 1 UNITS Glucose (Glucose 40% Gel) 15-30 GRAMS 15 GRAMS... UD PRN PO 10/14/16 05:00 11/13/16 04:59 Glucose (Glucose Chew Tab) 4-8 Tablets 4 Tabl... UD PRN PO 10/14/16 05:00 11/13/16 04:59 Dextrose (Dextrose 50% 50ML Syringe) 25-50ML OF 50% DW IV FOR... UD PRN IV 10/14/16 05:00 11/13/16 04:59 Glucagon (Glucagon Inj) 1 mg UD PRN SQ 10/14/16 05:00 11/13/16 04:59 Ascorbic Acid (Vitamin C Tab) 500 mg DAILY PO 10/14/16 09:00 11/13/16 08:59 10/16/16 08:02 500 MG Cyanocobalamin (Vitamin B-12 Tab) 1,000 mcg DAILY PO 10/14/16 09:00 11/13/16 08:59 10/16/16 08:09 1,000 MCG Docusate Sodium (coLACE CAP) 100 mg HS PO 10/14/16 21:00 11/13/16 20:59 10/15/16 20:50 100 MG Doxepin HCl (Sinequan Cap) 50 mg HS PO 10/14/16 21:00 11/13/16 20:59 10/15/16 20:52 50 MG Folic Acid (Folvite Tab) 1 mg QAM PO 10/14/16 09:00 11/13/16 08:59 10/16/16 08:07 1 MG Magnesium Oxide (Mag-Ox Tab) 400 mg HS PO 10/14/16 21:00 11/13/16 20:59 10/15/16 20:51 400 MG Pravastatin Sodium (Pravachol Tab) 20 mg HS PO 10/14/16 21:00 11/13/16 20:59 10/15/16 20:51 20 MG Pyridoxine HCl (Vitamin B-6 Tab) 25 mg DAILY PO 10/14/16 09:00 11/13/16 08:59 10/16/16 08:08 25 MG Rivaroxaban (Xarelto Tab) 20 mg QPM PO 10/14/16 21:00 11/13/16 20:59 Future Hold 10/14/16 22:07 20 MG zl-Elqyx-Krwimphhba Acetate (Vitamin E Cap) 400 interunit DAILY PO 10/14/16 09:00 11/13/16 08:59 10/16/16 08:07 400 INTERUNIT Cholecalciferol (Vitamin D Tab) 2,000 inter.unit DAILY PO 10/14/16 09:00 11/13/16 08:59 10/16/16 08:07 2,000 INTER.UNIT Piperacillin Sod/ Tazobactam Sod (Consult) 1 ea UD PRN N/A 10/15/16 08:18 11/14/16 08:17 Hydroxyurea 500 mg 500 mg QPM PO 10/15/16 21:00 11/14/16 20:59 10/15/16 20:52 500 MG Piperacillin Sod/ Tazobactam Sod 3.375 gm/Dextrose 115 ml @ 28.75 mls/ hr Q8H IV 10/15/16 16:00 10/22/16 15:59 10/16/16 08:00 28.75 MLS/HR Vasopressin 50 units/Sodium Chloride 502.5 ml @ 0 mls/hr Q0M PRN IV 10/15/16 12:23 11/14/16 12:22 10/15/16 13:09 24 MLS/HR Hydrocortisone Sodium Succinate 100 mg/Syringe 2 ml @ 4 mls/min Q8@0600,1400,2200 IV 10/15/16 14:30 11/14/16 14:29 10/16/16 06:16 4 MLS/MIN Sodium Chloride (Nss 1000ml) 1,000 ml @ 60 mls/hr [id number] IV 10/15/16 18:45 11/14/16 18:44 10/16/16 06:15 60 MLS/HR Vancomycin HCl (Consult) 1 ea UD PRN N/A 10/15/16 21:30 11/14/16 21:29 I & O: 24-Hour Column 10/16/16 08:00 Intake Total 2079 ml Output Total 925 ml Balance 1154 ml Vital Signs: Date Time Temp Pulse Resp B/P Pulse Ox O2 Delivery O2 Flow Rate FiO2 10/16/16 07:35 36.8 79 18 117/63 96 Room Air 10/16/16 06:00 36.7 67 20 108/57 98 High Flow Oxygen 50 10/16/16 05:00 61 99/58 96 High Flow Oxygen 50 10/16/16 04:00 37.0 62 20 105/58 91 High Flow Oxygen 50 10/16/16 04:00 91 High Flow Oxygen 50 10/16/16 03:00 69 14 110/56 97 High Flow Oxygen 50 10/16/16 02:00 66 18 96/56 94 High Flow Oxygen 50 10/16/16 01:00 71 98/57 95 High Flow Oxygen 50 10/16/16 00:00 36.9 71 20 106/58 95 High Flow Oxygen 50 10/16/16 00:00 95 High Flow Oxygen 50 10/15/16 23:00 36.9 69 91/53 92 10/15/16 22:00 84 92 10/15/16 21:00 89 20 125/83 93 High Flow Oxygen 50 10/15/16 20:00 36.8 83 20 106/57 96 High Flow Oxygen 50 10/15/16 20:00 95 High Flow Oxygen 50 10/15/16 19:30 78 97/64 95 High Flow Oxygen 50 10/15/16 19:15 77 107/46 95 High Flow Oxygen 50 10/15/16 19:00 83 116/61 96 High Flow Oxygen 50 10/15/16 18:00 93 18 112/82 96 High Flow Oxygen 50 10/15/16 16:30 81 20 108/71 93 High Flow Oxygen 50 10/15/16 16:15 74 20 100/57 96 High Flow Oxygen 50 10/15/16 16:00 36.3 78 20 105/58 96 High Flow Oxygen 50 10/15/16 16:00 96 High Flow Oxygen 50 10/15/16 14:00 78 20 118/66 92 High Flow Oxygen 60 10/15/16 12:30 82 21 94/58 100 Non-Rebreather 15.0 10/15/16 12:00 100 Non-Rebreather 15.0 10/15/16 12:00 78 21 75/49 99 Non-Rebreather 15.0 10/15/16 11:29 76 21 87/60 100 Non-Rebreather 15.0 10/15/16 11:04 36.8 81 21 88/52 99 Non-Rebreather 15.0 Laboratory Results: Last 24 Hours Test 10/15/16 10:38 10/15/16 12:38 10/15/16 13:30 10/15/16 14:32 Bedside Glucose 138 mg/dl Procalcitonin < 0.05 ng/ml Random Cortisol 25.30 mcg/dl Urine Random Sodium 14 mEq/L Troponin I < 0.015 ng/ml Pro-B-Type Natriuretic Peptide 75 pg/ml Test 10/15/16 16:55 10/15/16 21:03 10/15/16 22:45 10/16/16 05:19 Bedside Glucose 137 mg/dl 207 mg/dl Troponin I < 0.015 ng/ml White Blood Count 5.17 K/uL Red Blood Count 2.50 M/uL Hemoglobin 10.5 g/dL Hematocrit 32.2 % Mean Corpuscular Volume 128.8 fL Mean Corpuscular Hemoglobin 42.0 pg Mean Corpuscular Hemoglobin Concent 32.6 g/dl RDW Standard Deviation 67.5 fL RDW Coefficient of Variation 14.3 % Platelet Count 181 K/uL Mean Platelet Volume 9.6 fL Sodium Level 140 mmol/L Potassium Level 4.1 mmol/L Chloride Level 102 mmol/L Carbon Dioxide Level 32 mmol/L Anion Gap 6.0 mmol/L Blood Urea Nitrogen 37 mg/dl Creatinine 0.65 mg/dl Est Creatinine Clear Calc Drug Dose 80.3 ml/min Estimated GFR () 104.3 Estimated GFR (Non- 90.0 BUN/Creatinine Ratio 56.8 Random Glucose 185 mg/dl Calcium Level 8.1 mg/dl Phosphorus Level 2.9 mg/dl Magnesium Level 2.7 mg/dl Test 10/16/16 06:38 Bedside Glucose 178 mg/dl
--- NOTE | 2016-10-16 09:06 | PROGRESS NOTE ---
DATE: 10/16/2016 FOLLOWUP VISIT SUBJECTIVE: The patient is a 71-year-old female who has multiple sclerosis, polycythemia vera, diabetes, and a history of chronic DVTs. She was admitted with a progressive downhill course in mental status changes, probably due to an UTI. She was hypotensive and having additional mental status changes and she was brought to the ICU. Overnight, she has markedly improved and now is alert and oriented. She has no cardiac complaints this morning. OBJECTIVE: VITAL SIGNS: Blood pressure is 120/60 and pulse is regular at 79. She is in a sinus rhythm. She is afebrile. HEENT: She is normocephalic. She is wearing corrective lenses. Mucous membranes are moist. NECK: The neck veins are flat. Carotids have good upstrokes bilaterally without bruits. Thyroid is nonpalpable. RESPIRATORY: Breath sounds equal bilaterally and clear to auscultation. CARDIOVASCULAR: Heart has a regular rhythm. Normal S1 and S2. No S3 or S4. No cardiac rubs or murmurs. GASTROINTESTINAL: Abdomen is soft and nontender without organomegaly. EXTREMITIES: Free of edema, digit clubbing, or cyanosis. NEUROLOGIC: Grossly intact. SKIN: Warm to touch. LYMPH NODES: Negative to palpation. LABORATORY DATA: Hemoglobin is 10.5 and WBC count is 5.17. Potassium is 4.1 and creatinine is 0.65. One of 2 blood cultures is growing gram negative staph. Additional blood cultures are pending. Urine culture is pending. IMPRESSION: 1. Mental status changes, possibly due to urinary tract infection. 2. History of multiple sclerosis. 3. Polycythemia vera. 4. Hypercoagulable with history of deep venous thrombosis. 5. Acute renal failure due to dehydration. RECOMMENDATIONS: The patient has made a marked improvement. I agree that she can be transferred from the ICU and I believe that she could also be transferred to a regular medical floor and does not need a telemetry unit.
[2016-10-16] MEDS: INSULIN ASPART 100 UNITS/ML 3 ML PEN SC SCH ×4 (09:46→20:36)
--- NOTE | 2016-10-16 09:52 | Progress Note ---
Medicine Progress Note Date & Time of Visit: Oct 16, 2016 at 09:42. Subjective off vasopressin, 96% on room air seen resting in bed, awake, alert, oriented x 3 states she feels improved compared to yesterday denies shortness of breath, chest pain, cough, sputum denies abdominal pain, diarrhea no other symptoms Objective Last 8 Hrs Date Time Temp Pulse Resp B/P Pulse Ox O2 Delivery O2 Flow Rate FiO2 10/16/16 07:35 36.8 79 18 117/63 96 Room Air 10/16/16 06:00 36.7 67 20 108/57 98 High Flow Oxygen 50 10/16/16 05:00 61 99/58 96 High Flow Oxygen 50 10/16/16 04:00 37.0 62 20 105/58 91 High Flow Oxygen 50 10/16/16 04:00 91 High Flow Oxygen 50 10/16/16 03:00 69 14 110/56 97 High Flow Oxygen 50 10/16/16 02:00 66 18 96/56 94 High Flow Oxygen 50 Physical Exam: General-oriented x 3, not in distress, speaks in sentences with no effort Eyes- EOMI, anicteric Neck- no JVD, no adenopathy Lungs- mild rales bilateral bases Heart- normal rate, regular rhythm; no murmurs Abdomen- normal bowel sounds, soft, nontender Extremities- grade 1-2 lower leg edema, no warmth/erythema/tenderness Neuro- alert, awake; left sided weakness and lower leg weakness: chronic Skin- warm & dry Laboratory Results: Last 24 Hours Test 10/15/16 10:38 10/15/16 12:38 10/15/16 13:30 10/15/16 14:32 Bedside Glucose 138 mg/dl Procalcitonin < 0.05 ng/ml Random Cortisol 25.30 mcg/dl Urine Random Sodium 14 mEq/L Troponin I < 0.015 ng/ml Pro-B-Type Natriuretic Peptide 75 pg/ml Test 10/15/16 16:55 10/15/16 21:03 10/15/16 22:45 10/16/16 05:19 Bedside Glucose 137 mg/dl 207 mg/dl Troponin I < 0.015 ng/ml White Blood Count 5.17 K/uL Red Blood Count 2.50 M/uL Hemoglobin 10.5 g/dL Hematocrit 32.2 % Mean Corpuscular Volume 128.8 fL Mean Corpuscular Hemoglobin 42.0 pg Mean Corpuscular Hemoglobin Concent 32.6 g/dl RDW Standard Deviation 67.5 fL RDW Coefficient of Variation 14.3 % Platelet Count 181 K/uL Mean Platelet Volume 9.6 fL Sodium Level 140 mmol/L Potassium Level 4.1 mmol/L Chloride Level 102 mmol/L Carbon Dioxide Level 32 mmol/L Anion Gap 6.0 mmol/L Blood Urea Nitrogen 37 mg/dl Creatinine 0.65 mg/dl Est Creatinine Clear Calc Drug Dose 80.3 ml/min Estimated GFR () 104.3 Estimated GFR (Non- 90.0 BUN/Creatinine Ratio 56.8 Random Glucose 185 mg/dl Calcium Level 8.1 mg/dl Phosphorus Level 2.9 mg/dl Magnesium Level 2.7 mg/dl Test 10/16/16 06:38 Bedside Glucose 178 mg/dl Date/Time Source Procedure Growth Status 10/16/16 05:30 Blood Blood Culture Pending Received 10/16/16 05:19 Blood Blood Culture Pending Received 10/15/16 13:30 Nasal MRSA DNA Surveillance Screen - Final Specimen Negative for MRSA by DNA Probe Complete Assessment & Plan 71 year old female with history of CHF Diastolic Type and Moderate Mitral Regurgitation, DM, HTN, Multiple Sclerosis, DVT and PE on Xarelto, Obstructive Sleep Apnea, presenting with shortness of breath and leg swelling x few days. ACUTE EXACERBATION OF CHF, SYSTOLIC EF 45-50%/DIASTOLIC - presented with hypoxia, shortness of breath, wheezing, increased leg swelling - usually on Lasix 20mg PO daily - started with lasix 40mg IV BID with some diuresis - updated echo: * -- Conclusions -- * The left ventricle is normal in size. * There is moderate concentric left ventricular hypertrophy. * Left ventricular systolic function is mildly reduced. * Ejection Fraction = 45-50%. * The right ventricular systolic function is normal. * The left atrial size is normal. * Right atrial size is normal. * The mitral valve leaflets appear thickened, but open well. * There is mild to moderate mitral regurgitation. - crea elevated at 1.4 from 0.8 hypotensive systolic 80s Lasix held, given gentle IV fluids - consulted Cardiology -- appears to be euvolemic today hold IV fluids and Lasix monitor volume status LETHARGY- POSSIBLE TOXIC METABOLIC ENCEPHALOPATHY FROM: CT head: no acute process POSSIBLE SEPTIC SHOCK- UTI, COAG NEG STAPH BACTEREMIA? - ff up blood and urine cultures check lactic acid: normal - given IV fluids required short term Vasopressin on Hydrocortisone taper Vancomycin Day 1, Zosyn Day 2 ACUTE RENAL FAILURE - resolved - given gentle IV fluids HYPOTENSION - resolved - from possible Sepsis and Hypovolemia - management as noted above DM Type II: hold glipizide A1c 5.3 ISS, Accu checks, Diabetic diet HTN presently hypotensive hold Carvedilol, Lisinopril for now until BP stabilizes Multiple Sclerosis: resume Baclofen continue Doxepine H/O DVT and PE resume Xarelto Polycythemia Vera: Hydroxyurea HLP: continue statin MICROSCOPIC HEMATURIA repeat UA DVT Px: on Xarelto Disposition: pending Current Inpatient Medications: Current Inpatient Medications Medications (Trade) Dose Ordered Sig/Yesenia Route Start Time Stop Time Status Last Admin Dose Admin Acetaminophen (Tylenol Tab) 650 mg Q4H PRN PO 10/14/16 04:45 11/13/16 04:44 Ondansetron HCl (Zofran Inj) 4 mg Q6H PRN IV 10/14/16 04:45 11/13/16 04:44 Albuterol/ Ipratropium (Duoneb) 3 ml Q4R PRN INH 10/14/16 04:45 11/13/16 04:44 Insulin Aspart (novoLOG ASPART) SLIDING SCALE If C... ACHS SC 10/14/16 08:00 11/13/16 07:59 10/15/16 21:05 1 UNITS Glucose (Glucose 40% Gel) 15-30 GRAMS 15 GRAMS... UD PRN PO 10/14/16 05:00 11/13/16 04:59 Glucose (Glucose Chew Tab) 4-8 Tablets 4 Tabl... UD PRN PO 10/14/16 05:00 11/13/16 04:59 Dextrose (Dextrose 50% 50ML Syringe) 25-50ML OF 50% DW IV FOR... UD PRN IV 10/14/16 05:00 11/13/16 04:59 Glucagon (Glucagon Inj) 1 mg UD PRN SQ 10/14/16 05:00 11/13/16 04:59 Ascorbic Acid (Vitamin C Tab) 500 mg DAILY PO 10/14/16 09:00 11/13/16 08:59 10/16/16 08:02 500 MG Cyanocobalamin (Vitamin B-12 Tab) 1,000 mcg DAILY PO 10/14/16 09:00 11/13/16 08:59 10/16/16 08:09 1,000 MCG Docusate Sodium (coLACE CAP) 100 mg HS PO 10/14/16 21:00 11/13/16 20:59 10/15/16 20:50 100 MG Doxepin HCl (Sinequan Cap) 50 mg HS PO 10/14/16 21:00 11/13/16 20:59 10/15/16 20:52 50 MG Folic Acid (Folvite Tab) 1 mg QAM PO 10/14/16 09:00 11/13/16 08:59 10/16/16 08:07 1 MG Pravastatin Sodium (Pravachol Tab) 20 mg HS PO 10/14/16 21:00 11/13/16 20:59 10/15/16 20:51 20 MG Pyridoxine HCl (Vitamin B-6 Tab) 25 mg DAILY PO 10/14/16 09:00 11/13/16 08:59 10/16/16 08:08 25 MG Rivaroxaban (Xarelto Tab) 20 mg QPM PO 10/14/16 21:00 11/13/16 20:59 Future Hold 10/14/16 22:07 20 MG xr-Zodau-Xmujnlcsvd Acetate (Vitamin E Cap) 400 interunit DAILY PO 10/14/16 09:00 11/13/16 08:59 10/16/16 08:07 400 INTERUNIT Cholecalciferol (Vitamin D Tab) 2,000 inter.unit DAILY PO 10/14/16 09:00 11/13/16 08:59 10/16/16 08:07 2,000 INTER.UNIT Piperacillin Sod/ Tazobactam Sod (Consult) 1 ea UD PRN N/A 10/15/16 08:18 11/14/16 08:17 Hydroxyurea 500 mg 500 mg QPM PO 10/15/16 21:00 11/14/16 20:59 10/15/16 20:52 500 MG Piperacillin Sod/ Tazobactam Sod 3.375 gm/Dextrose 115 ml @ 28.75 mls/ hr Q8H IV 10/15/16 16:00 10/22/16 15:59 10/16/16 08:00 28.75 MLS/HR Vasopressin 50 units/Sodium Chloride 502.5 ml @ 0 mls/hr Q0M PRN IV 10/15/16 12:23 11/14/16 12:22 10/15/16 13:09 24 MLS/HR Hydrocortisone Sodium Succinate/ Syringe (Solu-Cortef IV/ Syringe) 2 ml @ 4 mls/min Q8@0600,1400,2200 IV 10/15/16 14:30 11/14/16 14:29 10/16/16 06:16 4 MLS/MIN Vancomycin HCl (Consult) 1 ea UD PRN N/A 10/15/16 21:30 11/14/16 21:29
[2016-10-16] MEDS ORDERED: LEVALBUTEROL/IPRATROPIUM NEB INH SCH (10:00)
[2016-10-16] MEDS: VANCOMYCIN INJ 1,000 MG in SODIUM CHLORIDE 0.9% 250ML 250 ML IV SCH ×2 (12:00→23:53)
--- NOTE | 2016-10-16 12:01 | Pharmacy Progress Note ---
Pharmacy Antibiotic Consult Date of Service: Oct 16, 2016. Pharmacy Dosing Scope Pharmacy is consulted to initiate vancomycin and zosyn IV dosing therapy, order appropriate labs and adjust drug dose/frequency. Subjective The patient is a 71 year old female admitted on Oct 14, 2016 at 04:45. Objective Height (Feet): 5 Height (Inches): 2.00 Weight (Kilograms): 83.900 Lab Results (24hrs): Item Value Date Time Random Vancomycin Level 11.2 mcg/ml 10/16/16 1010 Laboratory Tests Test 10/16/16 05:19 BUN/Creatinine Ratio 56.8 Blood Urea Nitrogen 37 mg/dl Creatinine 0.65 mg/dl White Blood Count 5.17 K/uL Micro Results: Item Value Date Time Blood Culture - Preliminary Resulted 10/14/16 0200 Blood Coag Neg Staphylococcus Blood Culture - Preliminary Resulted 10/14/16 0206 Blood NO GROWTH TO DATE. Urine Culture - Preliminary Resulted 10/15/16 0740 Urine,Catheterized PIN-POINT GROWTH PRESENT, REINCUBATING. MRSA DNA Surveillance Screen - Final Complete 10/15/16 1330 Nasal Specimen Negative for MRSA by DNA Probe Blood Culture Received 10/16/16 0519 Blood Pending Blood Culture Received 10/16/16 0530 Blood Pending Assessment & Plan Patient on vancomycin and zosyn for positive blood cultures. BC 1/2 positive for coag negative staph (possible contaminant); repeat BC are pending. Vancomycin: * Random vancomycin level this am was ~11 mcg/ml (goal 15-20 mcg/ml for bacteremia) * Scr improved today, from 1.4 to 0.65 mg/dL (CrCl ~80 ml/min) ; urine output decrease in past 24 hrs - monitor closely * Will start MD of vancomycin 1000 mg (~12 mg/kg) iv q 12 hrs to achieve an estimated trough ~15-20 mcg/ml * Estimated kinetics: T1/2~10 hrs, ke~0.07 hr-1 * Will plan to obtain trough if vancomycin is to be continued >48 hrs Zosyn: * 3.375 gm iv q 8 hrs (appropriate for CrCl >20 ml/min) no change necessary Pharmacy will continue to follow and will adjust dose/frequency as necessary. Thank you
--- NOTE | 2016-10-16 12:14 | PROGRESS NOTE ---
DATE: 10/16/2016 Namrata looks better today. She is speaking, making conversation, still has a dense left hemiparesis which she has had for years, in general feels a little stronger and her systemic medical problems seem to be under better control now. At this point, I do not think neurology has much more to offer. We do not feel this is MS flare per se for reasons that are outlined on the prior consultation note. At this stage of her disease, it is very unlikely that she will be susceptible to a flare of a typical acute inflammatory demyelinating nature. She has chronic secondary progressive disease and the pathology in this setting is that of gradual loss of axons and myelin function without active inflammation. So, steroids really have no role in any of this other than their nonspecific salutary effect, and as I stated yesterday, if her systemic illnesses would require the use of steroids, I certainly have no objection to their use, but I would not use them in this setting, acting on the assumption that her weakness is due to an MS flareup. It certainly is a "pseudo flare" of MS due to systemic illness which we see very frequently in individuals with advanced disease. For now then, neurology is going to sign off but we would be happy to check in with her should other problems arise. JIMMY
[2016-10-16] MEDS: BACLOFEN 10 MG TAB PO SCH ×3 (13:00→20:31)
[2016-10-16] MEDS: IPRATROPIUM BROMIDE NEB SOLN 0.02% 2.5 ML VIAL INH SCH (19:09)
[2016-10-16] MEDS: LEVALBUTEROL 1.25MG/0.5ML NEB INH SCH (19:10)
[2016-10-16] MEDS: DOCUSATE SODIUM 100 MG CAP PO SCH (19:40)
[2016-10-16] MEDS: PRAVASTATIN SOD 20 MG TAB PO SCH (20:31)
[2016-10-16] MEDS: DOXEPIN HCL 25 MG CAP PO SCH (20:32)
[2016-10-16] MEDS: RIVAROXABAN 20 MG TAB PO SCH (20:32)
[2016-10-16] MEDS: HYDROXYUREA 500 MG CAP PO SCH (20:37)
[2016-10-17] VITALS (7 sets, daily range): BP systolic 102–137; BP diastolic 62–85; PULSE 67–95; TEMP 35.6–36.9; O2SAT 93–99
[2016-10-17] MEDS ORDERED: LEVOFLOXACIN 750MG / D5W IV SCH (02:00)
[2016-10-17] MEDS: PIPERACILL/TAZOBAC IV 3.375 GM in DEXTROSE 5% 100ML IV SCH ×3 (02:18→16:05)
[2016-10-17 06:05] LABS: HEMATOCRIT 30.6 % (37-47); IG% 0.2 %; LYMPH % 18.7 %; LYMPH ABS # 1.08 K/uL (1.2-3.4); MEAN CELL VOLUME 125.4 fL (80-100); MEAN CORPUSCULAR HGB CONC 32.7 g/dl (32-36); MEAN PLATELET VOLUME 9.3 fL (7.4-10.4); MONO % 6.6 %; NEUT % 74.5 %; PLATELET COUNT 202 K/uL (130-400); RED BLOOD COUNT 2.44 M/uL (4.2-5.4); WHITE BLOOD COUNT 5.79 K/uL (4.8-10.8)
[2016-10-17] MEDS: HYDROCORTISONE IV 100 MG in SYRINGE 0 ML IV SCH ×2 (06:22→13:56)
[2016-10-17 06:28] LABS: COMPLETE YES; HYPERSEGMENTED POLYS 1+
[2016-10-17 06:39] LABS: BUN/CREATININE RATIO 58.7 (10-20); CALCIUM 8.1 mg/dl (8.5-10.1); CREATININE 0.49 mg/dl (0.60-1.20); MAGNESIUM 2.5 mg/dl (1.8-2.4); POTASSIUM 4.3 mmol/L (3.5-5.1)
[2016-10-17] MEDS: IPRATROPIUM BROMIDE NEB SOLN 0.02% 2.5 ML VIAL INH SCH ×2 (08:01→14:25)
[2016-10-17] MEDS: LEVALBUTEROL 1.25MG/0.5ML NEB INH SCH ×2 (08:01→14:25)
[2016-10-17] MEDS: PYRIDOXINE HCL 50 MG TAB PO SCH (08:11)
[2016-10-17] MEDS: BACLOFEN 10 MG TAB PO SCH ×4 (08:11→20:46)
[2016-10-17] MEDS: CYANOCOBALAMIN 500 MCG TAB (VIT B-12) PO SCH (08:11)
[2016-10-17] MEDS: ASCORBIC ACID 500 MG TAB PO SCH (08:12)
[2016-10-17] MEDS: CHOLECALCIFEROL 1000 INTER.UNIT TAB PO SCH (08:12)
[2016-10-17] MEDS: TOCOPHERYL, DL-ALPHA 400 INTER.UNIT CAP PO SCH (08:13)
[2016-10-17] MEDS: INSULIN ASPART 100 UNITS/ML 3 ML PEN SC SCH ×4 (08:18→20:57)
[2016-10-17] MEDS: VANCOMYCIN INJ 1,000 MG in SODIUM CHLORIDE 0.9% 250ML 250 ML IV SCH ×2 (13:23→23:38)
--- NOTE | 2016-10-17 15:39 | Progress Note ---
Medicine Progress Note Date & Time of Visit: Oct 17, 2016 at 15:32. Subjective state she feels improved compared to yesterday denies shortness of breath, cough, fever/chills denies abdominal pain, nausea/vomiting appetite is good no other symptoms Objective Last 8 Hrs Date Time Temp Pulse Resp B/P Pulse Ox O2 Delivery O2 Flow Rate FiO2 10/17/16 14:25 91 16 95 Nasal Cannula 2.0 10/17/16 11:48 36.6 76 16 102/62 97 Nasal Cannula 2.0 10/17/16 08:01 77 16 97 Nasal Cannula 3.0 10/17/16 08:00 Nasal Cannula 4.0 Physical Exam: General-oriented x 3, not in distress, speaks in sentences with no effort Eyes- anicteric Neck- no JVD Lungs- clear breath sounds bilaterally, no rales/wheezes Heart- normal rate, regular rhythm; no murmurs Abdomen- normal bowel sounds, soft, nontender Extremities- grade 1 lower leg edema, no warmth/erythema/tenderness Neuro- alert, awake; left sided weakness and lower leg weakness: chronic Skin- warm & dry Laboratory Results: Last 24 Hours Test 10/16/16 16:50 10/16/16 20:12 10/17/16 05:25 10/17/16 08:07 Bedside Glucose 157 mg/dl 240 mg/dl 144 mg/dl White Blood Count 5.79 K/uL Red Blood Count 2.44 M/uL Hemoglobin 10.0 g/dL Hematocrit 30.6 % Mean Corpuscular Volume 125.4 fL Mean Corpuscular Hemoglobin 41.0 pg Mean Corpuscular Hemoglobin Concent 32.7 g/dl Platelet Count 202 K/uL Mean Platelet Volume 9.3 fL Neutrophils (%) (Auto) 74.5 % Lymphocytes (%) (Auto) 18.7 % Monocytes (%) (Auto) 6.6 % Eosinophils (%) (Auto) 0.0 % Basophils (%) (Auto) 0.0 % Neutrophils # (Auto) 4.32 K/uL Lymphocytes # (Auto) 1.08 K/uL Monocytes # (Auto) 0.38 K/uL Eosinophils # (Auto) 0.00 K/uL Basophils # (Auto) 0.00 K/uL RDW Standard Deviation 65.1 fL RDW Coefficient of Variation 14.2 % Immature Granulocyte % (Auto) 0.2 % Immature Granulocyte # (Auto) 0.01 K/uL Hypersegmented Polys 1+ Macrocytosis PRESENT Sodium Level 143 mmol/L Potassium Level 4.3 mmol/L Chloride Level 106 mmol/L Carbon Dioxide Level 31 mmol/L Anion Gap 6.0 mmol/L Blood Urea Nitrogen 29 mg/dl Creatinine 0.49 mg/dl Est Creatinine Clear Calc Drug Dose 108.5 ml/min Estimated GFR () 114.4 Estimated GFR (Non- 98.7 BUN/Creatinine Ratio 58.7 Random Glucose 150 mg/dl Calcium Level 8.1 mg/dl Magnesium Level 2.5 mg/dl Procalcitonin < 0.05 ng/ml Test 10/17/16 11:29 Bedside Glucose 193 mg/dl Assessment & Plan 71 year old female with history of CHF Diastolic Type and Moderate Mitral Regurgitation, DM, HTN, Multiple Sclerosis, DVT and PE on Xarelto, Obstructive Sleep Apnea, presenting with shortness of breath and leg swelling x few days. ACUTE EXACERBATION OF CHF, SYSTOLIC EF 45-50%/DIASTOLIC - presented with hypoxia, shortness of breath, wheezing, increased leg swelling - usually on Lasix 20mg PO daily - started with lasix 40mg IV BID with some diuresis - updated echo: * -- Conclusions -- * The left ventricle is normal in size. * There is moderate concentric left ventricular hypertrophy. * Left ventricular systolic function is mildly reduced. * Ejection Fraction = 45-50%. * The right ventricular systolic function is normal. * The left atrial size is normal. * Right atrial size is normal. * The mitral valve leaflets appear thickened, but open well. * There is mild to moderate mitral regurgitation. - crea elevated at 1.4 from 0.8 hypotensive systolic 80s Lasix held, given gentle IV fluids - consulted Cardiology -- remains euvolemic hold IV fluids and Lasix monitor volume status LETHARGY- POSSIBLE TOXIC METABOLIC ENCEPHALOPATHY FROM: CT head: no acute process POSSIBLE SEPTIC SHOCK- UTI, COAG NEG STAPH BACTEREMIA? - blood cultures: 1/2 coag neg staph, awaiting final cultures repeat blood cultures: pending - urine culture: negative - given IV fluids required short term Vasopressin on Hydrocortisone taper Vancomycin Day 2, Zosyn Day 3 will determine antibiotic regimen for d/c home when cultures are final tomorrow ACUTE RENAL FAILURE - resolved - given gentle IV fluids HYPOTENSION - resolved - from possible Sepsis and Hypovolemia - management as noted above DM Type II: hold glipizide A1c 5.3 ISS, Accu checks, Diabetic diet HTN presently BP on the lower side hold Carvedilol, Lisinopril for now Multiple Sclerosis: resume Baclofen continue Doxepine no MS flare as per Neuro H/O DVT and PE resumed Xarelto Polycythemia Vera: on Hydroxyurea HLP: continue statin MICROSCOPIC HEMATURIA repeat UA as outpatient DVT Px: on Xarelto Disposition: pending lives at home possible d/c tomorrow Current Inpatient Medications: Current Inpatient Medications Medications (Trade) Dose Ordered Sig/Yesenia Route Start Time Stop Time Status Last Admin Dose Admin Acetaminophen (Tylenol Tab) 650 mg Q4H PRN PO 10/14/16 04:45 11/13/16 04:44 Ondansetron HCl (Zofran Inj) 4 mg Q6H PRN IV 10/14/16 04:45 11/13/16 04:44 Albuterol/ Ipratropium (Duoneb) 3 ml Q4R PRN INH 10/14/16 04:45 11/13/16 04:44 Insulin Aspart (novoLOG ASPART) SLIDING SCALE If C... ACHS SC 10/14/16 08:00 11/13/16 07:59 10/17/16 13:21 4 UNITS Glucose (Glucose 40% Gel) 15-30 GRAMS 15 GRAMS... UD PRN PO 10/14/16 05:00 11/13/16 04:59 Glucose (Glucose Chew Tab) 4-8 Tablets 4 Tabl... UD PRN PO 10/14/16 05:00 11/13/16 04:59 Dextrose (Dextrose 50% 50ML Syringe) 25-50ML OF 50% DW IV FOR... UD PRN IV 10/14/16 05:00 11/13/16 04:59 Glucagon (Glucagon Inj) 1 mg UD PRN SQ 10/14/16 05:00 11/13/16 04:59 Ascorbic Acid (Vitamin C Tab) 500 mg DAILY PO 10/14/16 09:00 11/13/16 08:59 10/17/16 08:12 500 MG Cyanocobalamin (Vitamin B-12 Tab) 1,000 mcg DAILY PO 10/14/16 09:00 11/13/16 08:59 10/17/16 08:11 1,000 MCG Docusate Sodium (coLACE CAP) 100 mg HS PO 10/14/16 21:00 11/13/16 20:59 10/15/16 20:50 100 MG Doxepin HCl (Sinequan Cap) 50 mg HS PO 10/14/16 21:00 11/13/16 20:59 10/16/16 20:32 50 MG Folic Acid (Folvite Tab) 1 mg QAM PO 10/14/16 09:00 11/13/16 08:59 10/17/16 08:10 1 MG Pravastatin Sodium (Pravachol Tab) 20 mg HS PO 10/14/16 21:00 11/13/16 20:59 10/16/16 20:31 20 MG Pyridoxine HCl (Vitamin B-6 Tab) 25 mg DAILY PO 10/14/16 09:00 11/13/16 08:59 10/17/16 08:11 25 MG ve-Xuvyx-Pyttaoexnw Acetate (Vitamin E Cap) 400 interunit DAILY PO 10/14/16 09:00 11/13/16 08:59 10/17/16 08:13 400 INTERUNIT Cholecalciferol (Vitamin D Tab) 2,000 inter.unit DAILY PO 10/14/16 09:00 11/13/16 08:59 10/17/16 08:12 2,000 INTER.UNIT Piperacillin Sod/ Tazobactam Sod 1 ea 1 ea UD PRN N/A 10/15/16 08:18 11/14/16 08:17 Piperacillin Sod/ Tazobactam Sod 3.375 gm/Dextrose 115 ml @ 28.75 mls/ hr Q8H IV 10/15/16 16:00 10/22/16 15:59 10/17/16 08:20 28.75 MLS/HR Vasopressin/ Sodium Chloride (Pitressin Synthetic Inj/Nss 500ml) 502.5 ml @ 0 mls/hr Q0M PRN IV 10/15/16 12:23 11/14/16 12:22 10/15/16 13:09 24 MLS/HR Vancomycin HCl (Consult) 1 ea UD PRN N/A 10/15/16 21:30 11/14/16 21:29 Rivaroxaban (Xarelto Tab) 20 mg HS PO 10/16/16 21:00 11/15/16 20:59 10/16/16 20:32 20 MG Hydroxyurea (Hydrea Cap) 1,000 mg QPM PO 10/16/16 21:00 11/15/16 20:59 10/16/16 20:37 1,000 MG Baclofen (Lioresal Tab) 10 mg QID PO 10/16/16 13:00 11/15/16 12:59 10/17/16 12:15 10 MG Ipratropium [place] (Atrovent 0.02% 0.5MG/2.5ML Neb) 0.5 mg Q6RWA INH 10/16/16 15:00 11/15/16 14:59 10/17/16 14:25 0.5 MG Levalbuterol 1.25 mg 1.25 mg Q6RWA INH 10/16/16 15:00 11/15/16 14:59 10/17/16 14:25 1.25 MG Vancomycin HCl 1000 mg/Sodium Chloride 270 ml @ 125 mls/hr Q12H IV 10/16/16 12:00 10/30/16 11:59 10/17/16 13:23 125 MLS/HR Hydrocortisone Sodium Succinate/ Syringe (Solu-Cortef IV/ Syringe) 1 ml @ 4 mls/min Q12H IV 10/18/16 09:00 11/17/16 08:59 UNV
[2016-10-17] MEDS: DOCUSATE SODIUM 100 MG CAP PO SCH (20:47)
[2016-10-17] MEDS: DOXEPIN HCL 25 MG CAP PO SCH (20:48)
[2016-10-17] MEDS: PRAVASTATIN SOD 20 MG TAB PO SCH (20:48)
[2016-10-17] MEDS: RIVAROXABAN 20 MG TAB PO SCH (20:49)
[2016-10-17] MEDS: HYDROXYUREA 500 MG CAP PO SCH (20:57)
[2016-10-17] MEDS ORDERED: LEVALBUTEROL 1.25MG/0.5ML NEB INH PRN (21:00)
[2016-10-17] MEDS ORDERED: IPRATROPIUM BROMIDE NEB SOLN 0.02% 2.5 ML VIAL INH PRN (21:00)
[2016-10-18] VITALS (8 sets, daily range): BP systolic 98–119; BP diastolic 64–80; PULSE 72–94; TEMP 36.5–36.8; O2SAT 90–96
[2016-10-18] MEDS: PIPERACILL/TAZOBAC IV 3.375 GM in DEXTROSE 5% 100ML IV SCH ×2 (02:14→08:15)
[2016-10-18 05:58] LABS: BASO % 0.2 %; BASO ABS # 0.01 K/uL (0-0.2); LYMPH % 36.3 %; MEAN CORPUSCULAR HEMOGLOBIN 42.5 pg (25-34); MEAN CORPUSCULAR HGB CONC 33.4 g/dl (32-36); MEAN PLATELET VOLUME 9.2 fL (7.4-10.4); MONO % 12.1 %; NEUT % 51.4 %; PLATELET COUNT 215 K/uL (130-400); RED BLOOD COUNT 2.52 M/uL (4.2-5.4); WHITE BLOOD COUNT 5.78 K/uL (4.8-10.8)
[2016-10-18 06:28] LABS: COMPLETE YES; HYPERSEGMENTED POLYS 1+
[2016-10-18 06:38] LABS: BUN/CREATININE RATIO 33.6 (10-20); CALCIUM 8.2 mg/dl (8.5-10.1); CREATININE 0.65 mg/dl (0.60-1.20); MAGNESIUM 2.3 mg/dl (1.8-2.4); POTASSIUM 3.9 mmol/L (3.5-5.1)
[2016-10-18] MEDS: PYRIDOXINE HCL 50 MG TAB PO SCH (08:13)
[2016-10-18] MEDS: BACLOFEN 10 MG TAB PO SCH ×4 (08:14→20:03)
[2016-10-18] MEDS: TOCOPHERYL, DL-ALPHA 400 INTER.UNIT CAP PO SCH (08:14)
[2016-10-18] MEDS: CYANOCOBALAMIN 500 MCG TAB (VIT B-12) PO SCH (08:14)
[2016-10-18] MEDS: ASCORBIC ACID 500 MG TAB PO SCH (08:14)
[2016-10-18] MEDS: CHOLECALCIFEROL 1000 INTER.UNIT TAB PO SCH (08:15)
[2016-10-18] MEDS: INSULIN ASPART 100 UNITS/ML 3 ML PEN SC SCH ×4 (08:29→20:14)
[2016-10-18] MEDS ORDERED: HYDROCORTISONE IV 50 MG in SYRINGE 0 ML IV SCH (09:00)
--- NOTE | 2016-10-18 16:42 | Progress Note ---
Medicine Progress Note Date & Time of Visit: October 18, 2016 at 16:35. Subjective seen resting in bed , having a snack in good spirits states she feels improved overall denies shortness of breath, cough no fever/chills no abdominal pain, nausea denies other symptoms Objective Last 8 Hrs Date Time Temp Pulse Resp B/P Pulse Ox O2 Delivery O2 Flow Rate FiO2 10/18/16 15:29 36.8 94 20 118/78 95 Nasal Cannula 2.0 10/18/16 11:20 36.6 84 16 114/77 90 Nasal Cannula 2.0 Physical Exam: General-oriented x 3, not in distress, speaks in sentences with no effort Neck- no JVD Lungs- decreased breath sounds right base, no rales/wheezes bilaterally Heart- normal rate, regular rhythm; no murmurs Abdomen- normal bowel sounds, soft, nontender Extremities- grade 2 lower leg edema, no warmth/erythema/tenderness Neuro- alert, awake; left sided weakness and lower leg weakness: chronic Skin- warm & dry Laboratory Results: Last 24 Hours Test 10/17/16 16:44 10/17/16 20:21 10/18/16 05:37 10/18/16 07:38 Bedside Glucose 270 mg/dl 262 mg/dl 107 mg/dl White Blood Count 5.78 K/uL Red Blood Count 2.52 M/uL Hemoglobin 10.7 g/dL Hematocrit 32.0 % Mean Corpuscular Volume 127.0 fL Mean Corpuscular Hemoglobin 42.5 pg Mean Corpuscular Hemoglobin Concent 33.4 g/dl Platelet Count 215 K/uL Mean Platelet Volume 9.2 fL Neutrophils (%) (Auto) 51.4 % Lymphocytes (%) (Auto) 36.3 % Monocytes (%) (Auto) 12.1 % Eosinophils (%) (Auto) 0.0 % Basophils (%) (Auto) 0.2 % Neutrophils # (Auto) 2.97 K/uL Lymphocytes # (Auto) 2.10 K/uL Monocytes # (Auto) 0.70 K/uL Eosinophils # (Auto) 0.00 K/uL Basophils # (Auto) 0.01 K/uL RDW Standard Deviation 68.4 fL RDW Coefficient of Variation 14.6 % Immature Granulocyte % (Auto) 0.0 % Immature Granulocyte # (Auto) 0.00 K/uL Hypersegmented Polys 1+ Macrocytosis PRESENT Sodium Level 142 mmol/L Potassium Level 3.9 mmol/L Chloride Level 105 mmol/L Carbon Dioxide Level 32 mmol/L Anion Gap 5.0 mmol/L Blood Urea Nitrogen 22 mg/dl Creatinine 0.65 mg/dl Est Creatinine Clear Calc Drug Dose 81.8 ml/min Estimated GFR () 104.3 Estimated GFR (Non- 90.0 BUN/Creatinine Ratio 33.6 Random Glucose 118 mg/dl Calcium Level 8.2 mg/dl Magnesium Level 2.3 mg/dl Test 10/18/16 11:26 Bedside Glucose 161 mg/dl Assessment & Plan 71 year old female with history of CHF Diastolic Type and Moderate Mitral Regurgitation, DM, HTN, Multiple Sclerosis, DVT and PE on Xarelto, Obstructive Sleep Apnea, presenting with shortness of breath and leg swelling x few days. ACUTE EXACERBATION OF CHF, SYSTOLIC EF 45-50%/DIASTOLIC ACUTE HYPOXIC RESPIRATORY FAILURE - presented with hypoxia, shortness of breath, wheezing, increased leg swelling - usually on Lasix 20mg PO daily - started with lasix 40mg IV BID with some diuresis - updated echo: * -- Conclusions -- * The left ventricle is normal in size. * There is moderate concentric left ventricular hypertrophy. * Left ventricular systolic function is mildly reduced. * Ejection Fraction = 45-50%. * The right ventricular systolic function is normal. * The left atrial size is normal. * Right atrial size is normal. * The mitral valve leaflets appear thickened, but open well. * There is mild to moderate mitral regurgitation. - crea elevated at 1.4 from 0.8 hypotensive systolic 80s Lasix held, given gentle IV fluids - consulted Cardiology --(+) weight gain, increased leg edema Lasix 20mg IV one dose today re-evaluate in AM LETHARGY- POSSIBLE TOXIC METABOLIC ENCEPHALOPATHY FROM: CT head: no acute process POSSIBLE SEPTIC SHOCK- UTI, COAG NEG STAPH BACTEREMIA? BRONCHITIS? - blood cultures: 1/2 coag neg staph,not lugdunensis repeat blood cultures: negative - urine culture: negative (partially treated? has received Levaquin prior to cultures) - given IV fluids required short term Vasopressin placed on Hydrocortisone taper Vancomycin Day 2, Zosyn Day 4 change antibiotics to 3 more days of zosyn to complete 7 days treatment ACUTE RENAL FAILURE - resolved - given gentle IV fluids HYPOTENSION - resolved - from possible Sepsis and Hypovolemia - management as noted above DM Type II: hold glipizide A1c 5.3 ISS, Accu checks, Diabetic diet HTN BP on the lower side hold Carvedilol, Lisinopril for now Multiple Sclerosis: resume Baclofen continue Doxepine no MS flare as per Neuro H/O DVT and PE resumed Xarelto Polycythemia Vera: on Hydroxyurea HLP: continue statin MICROSCOPIC HEMATURIA repeat UA as outpatient DVT Px: on Xarelto Disposition: pending lives at home possible d/c tomorrow Current Inpatient Medications: Current Inpatient Medications Medications (Trade) Dose Ordered Sig/Yesenia Route Start Time Stop Time Status Last Admin Dose Admin Acetaminophen (Tylenol Tab) 650 mg Q4H PRN PO 10/14/16 04:45 11/13/16 04:44 Ondansetron HCl (Zofran Inj) 4 mg Q6H PRN IV 10/14/16 04:45 11/13/16 04:44 Albuterol/ Ipratropium (Duoneb) 3 ml Q4R PRN INH 10/14/16 04:45 11/13/16 04:44 Insulin Aspart (novoLOG ASPART) SLIDING SCALE If C... ACHS SC 10/14/16 08:00 11/13/16 07:59 10/18/16 12:50 4 UNITS Glucose (Glucose 40% Gel) 15-30 GRAMS 15 GRAMS... UD PRN PO 10/14/16 05:00 11/13/16 04:59 Glucose (Glucose Chew Tab) 4-8 Tablets 4 Tabl... UD PRN PO 10/14/16 05:00 11/13/16 04:59 Dextrose (Dextrose 50% 50ML Syringe) 25-50ML OF 50% DW IV FOR... UD PRN IV 10/14/16 05:00 11/13/16 04:59 Glucagon (Glucagon Inj) 1 mg UD PRN SQ 10/14/16 05:00 11/13/16 04:59 Ascorbic Acid (Vitamin C Tab) 500 mg DAILY PO 10/14/16 09:00 11/13/16 08:59 10/18/16 08:14 500 MG Cyanocobalamin (Vitamin B-12 Tab) 1,000 mcg DAILY PO 10/14/16 09:00 11/13/16 08:59 10/18/16 08:14 1,000 MCG Docusate Sodium (coLACE CAP) 100 mg HS PO 10/14/16 21:00 11/13/16 20:59 10/17/16 20:47 100 MG Doxepin HCl (Sinequan Cap) 50 mg HS PO 10/14/16 21:00 11/13/16 20:59 10/17/16 20:48 50 MG Folic Acid (Folvite Tab) 1 mg QAM PO 10/14/16 09:00 11/13/16 08:59 10/18/16 08:14 1 MG Pravastatin Sodium (Pravachol Tab) 20 mg HS PO 10/14/16 21:00 11/13/16 20:59 10/17/16 20:48 20 MG Pyridoxine HCl (Vitamin B-6 Tab) 25 mg DAILY PO 10/14/16 09:00 11/13/16 08:59 10/18/16 08:13 25 MG zt-Rrxxd-Swybuxscyz Acetate (Vitamin E Cap) 400 interunit DAILY PO 10/14/16 09:00 11/13/16 08:59 10/18/16 08:14 400 INTERUNIT Cholecalciferol (Vitamin D Tab) 2,000 inter.unit DAILY PO 10/14/16 09:00 11/13/16 08:59 10/18/16 08:15 2,000 INTER.UNIT Rivaroxaban (Xarelto Tab) 20 mg HS PO 10/16/16 21:00 11/15/16 20:59 10/17/16 20:49 20 MG Hydroxyurea (Hydrea Cap) 1,000 mg QPM PO 10/16/16 21:00 11/15/16 20:59 10/17/16 20:57 1,000 MG Baclofen (Lioresal Tab) 10 mg QID PO 10/16/16 13:00 11/15/16 12:59 10/18/16 16:13 10 MG Ipratropium [place] (Atrovent 0.02% 0.5MG/2.5ML Neb) 0.5 mg Q6RWA PRN INH 10/17/16 21:00 11/16/16 20:59 Levalbuterol (Xopenex 1.25MG/ 0.5ML Neb) 1.25 mg Q6RWA PRN INH 10/17/16 21:00 11/16/16 20:59 Amoxicillin/ Clavulanate Potassium 875 mg 875 mg BIDM PO 10/18/16 17:00 10/28/16 16:59 UNV Furosemide/Syringe (Lasix Inj/ Syringe) 2 ml @ 4 mls/min ONE IV 10/18/16 16:30 11/17/16 16:29 UNV
[2016-10-18] MEDS ORDERED: FUROSEMIDE INJ 20 MG in SYRINGE 0 ML IV SCH (17:00)
[2016-10-18] MEDS: AMOXICILLIN/CLAVULANATE TAB 875 MG TAB PO SCH (17:44)
[2016-10-18] MEDS: PRAVASTATIN SOD 20 MG TAB PO SCH (20:03)
[2016-10-18] MEDS: DOCUSATE SODIUM 100 MG CAP PO SCH (20:03)
[2016-10-18] MEDS: RIVAROXABAN 20 MG TAB PO SCH (20:04)
[2016-10-18] MEDS: DOXEPIN HCL 25 MG CAP PO SCH (20:05)
[2016-10-18] MEDS: HYDROXYUREA 500 MG CAP PO SCH (20:05)
[2016-10-19 04:00] VITALS: BP 105/71; PULSE 84; TEMP 36.5; O2SAT 95
[2016-10-19 06:08] LABS: BASO % 0.2 %; BASO ABS # 0.01 K/uL (0-0.2); EOS % 0.5 %; IG% 0.2 %; LYMPH % 32.9 %; LYMPH ABS # 2.12 K/uL (1.2-3.4); MEAN CELL VOLUME 125.5 fL (80-100); MEAN CORPUSCULAR HEMOGLOBIN 41.3 pg (25-34); MEAN CORPUSCULAR HGB CONC 32.9 g/dl (32-36); MEAN PLATELET VOLUME 9.3 fL (7.4-10.4); NEUT % 55.2 %; PLATELET COUNT 226 K/uL (130-400); RED BLOOD COUNT 2.71 M/uL (4.2-5.4); WHITE BLOOD COUNT 6.44 K/uL (4.8-10.8)
[2016-10-19 06:30] LABS: COMPLETE YES; HYPERSEGMENTED POLYS 1+
[2016-10-19 06:33] LABS: BUN/CREATININE RATIO 38.9 (10-20); CREATININE 0.54 mg/dl (0.60-1.20); POTASSIUM 3.4 mmol/L (3.5-5.1)
[2016-10-19 07:41] VITALS: BP 108/67; PULSE 93; TEMP 36.6; O2SAT 92
[2016-10-19] MEDS: CYANOCOBALAMIN 500 MCG TAB (VIT B-12) PO SCH (08:15)
[2016-10-19] MEDS: TOCOPHERYL, DL-ALPHA 400 INTER.UNIT CAP PO SCH (08:16)
[2016-10-19] MEDS: PYRIDOXINE HCL 50 MG TAB PO SCH (08:16)
[2016-10-19] MEDS: CHOLECALCIFEROL 1000 INTER.UNIT TAB PO SCH (08:16)
[2016-10-19] MEDS: AMOXICILLIN/CLAVULANATE TAB 875 MG TAB PO SCH (08:17)
[2016-10-19] MEDS: ASCORBIC ACID 500 MG TAB PO SCH (08:17)
[2016-10-19] MEDS: BACLOFEN 10 MG TAB PO SCH ×2 (08:18→13:09)
[2016-10-19] MEDS: INSULIN ASPART 100 UNITS/ML 3 ML PEN SC SCH ×2 (08:21→12:29)
--- NOTE | 2016-10-19 11:31 | Progress Note ---
Medicine Progress Note Date & Time of Visit: October 19, 2016 at 11:15. Subjective patient seen alert, in good spirits family at the bedside states she feels fine overall denies shortness of breath, cough, sputum, fever/chills no chest pain, palpitations, dizziness no nausea/abdominal pain, changes with BMs no other symptoms patient and family states she is back to her baseline no other symptoms oxygen sat 87-88% on room air Objective Last 8 Hrs Date Time Temp Pulse Resp B/P Pulse Ox O2 Delivery O2 Flow Rate FiO2 10/19/16 08:00 Nasal Cannula 2.0 10/19/16 07:41 36.6 93 18 108/67 92 Nasal Cannula 1.0 10/19/16 04:00 36.5 84 18 105/71 95 Nasal Cannula 2.0 Physical Exam: General-oriented x 3, not in distress, speaks in sentences with no effort Neck- no JVD Lungs- clear breath sounds bilaterally, no rales/wheezes Heart- normal rate, regular rhythm; no murmurs Abdomen- normal bowel sounds, soft, nontender Extremities- grade 1-2 lower leg edema, no warmth/erythema/tenderness Neuro- alert, awake; left sided weakness and lower leg weakness: chronic Skin- warm & dry Laboratory Results: Last 24 Hours Test 10/18/16 11:26 10/18/16 16:47 10/18/16 20:06 10/19/16 05:35 Bedside Glucose 161 mg/dl 236 mg/dl 237 mg/dl White Blood Count 6.44 K/uL Red Blood Count 2.71 M/uL Hemoglobin 11.2 g/dL Hematocrit 34.0 % Mean Corpuscular Volume 125.5 fL Mean Corpuscular Hemoglobin 41.3 pg Mean Corpuscular Hemoglobin Concent 32.9 g/dl Platelet Count 226 K/uL Mean Platelet Volume 9.3 fL Neutrophils (%) (Auto) 55.2 % Lymphocytes (%) (Auto) 32.9 % Monocytes (%) (Auto) 11.0 % Eosinophils (%) (Auto) 0.5 % Basophils (%) (Auto) 0.2 % Neutrophils # (Auto) 3.56 K/uL Lymphocytes # (Auto) 2.12 K/uL Monocytes # (Auto) 0.71 K/uL Eosinophils # (Auto) 0.03 K/uL Basophils # (Auto) 0.01 K/uL RDW Standard Deviation 65.7 fL RDW Coefficient of Variation 14.5 % Immature Granulocyte % (Auto) 0.2 % Immature Granulocyte # (Auto) 0.01 K/uL Hypersegmented Polys 1+ Macrocytosis PRESENT Sodium Level 144 mmol/L Potassium Level 3.4 mmol/L Chloride Level 105 mmol/L Carbon Dioxide Level 35 mmol/L Anion Gap 4.0 mmol/L Blood Urea Nitrogen 21 mg/dl Creatinine 0.54 mg/dl Est Creatinine Clear Calc Drug Dose 98.6 ml/min Estimated GFR () 110.8 Estimated GFR (Non- 95.6 BUN/Creatinine Ratio 38.9 Random Glucose 121 mg/dl Calcium Level 8.0 mg/dl Magnesium Level 2.0 mg/dl Test 10/19/16 07:26 Bedside Glucose 106 mg/dl Assessment & Plan 71 year old female with history of CHF Diastolic Type and Moderate Mitral Regurgitation, DM, HTN, Multiple Sclerosis, DVT and PE on Xarelto, Obstructive Sleep Apnea, presenting with shortness of breath and leg swelling x few days. ACUTE EXACERBATION OF CHF, SYSTOLIC EF 45-50% and DIASTOLIC TYPE ACUTE HYPOXIC RESPIRATORY FAILURE - presented with hypoxia, shortness of breath, wheezing, increased leg swelling - usually on Lasix 20mg PO daily - on admission, started with lasix 40mg IV BID with some diuresis - updated echo: * The left ventricle is normal in size. * There is moderate concentric left ventricular hypertrophy. * Left ventricular systolic function is mildly reduced. * Ejection Fraction = 45-50%. * The right ventricular systolic function is normal. * The left atrial size is normal. * Right atrial size is normal. * The mitral valve leaflets appear thickened, but open well. * There is mild to moderate mitral regurgitation. - on hospital day 3, crea increased from 0.8 to 1.4 patient was hypotensive systolic 80s, lethargic Lasix held, given gentle IV fluids Clinical Veterinarian Dr. Booker, consulted patient was transferred to ICU-- management as noted in #2 -- patient improved and was transferred to regular room noted to have (+) weight gain, increased leg edema Lasix 20mg IV given with -2L fluid balance, BP systolic 100s -- in terms of diuretics, will hold off on any additional Lasix IV as patient has tendency to have hypotension and acute renal failure resume usual Lasix 20mg po daily for now patient and family advised on fluid restriction of 1.5L and 2g Na diet /day , elevate legs advised to call PCP immediately if with increasing leg swelling oxygen sat 87-88% on room air patient will need 2 liters O2 by nasal cannula for now, wean off accordingly home health services arranged LETHARGY, RESOLVED, POSSIBLE TOXIC METABOLIC ENCEPHALOPATHY FROM: POSSIBLE SEPTIC SHOCK- UTI, BRONCHITIS - noted to be lethargic, hypotensive on Day 3 - blood cultures: 1/2 coag neg staph,not lugdunensis (likely contamination) repeat blood cultures: negative - Urinalysis: highly indicative of UTI urine culture: negative (partially treated? has received Levaquin prior to cultures) - transferred to ICU given IV fluids, antibiotics broadened with Zosyn added to Levaquin IV required short term Vasopressin placed on Hydrocortisone taper Vancomycin received x 2 days, Zosyn x 4 days will need to complete 3 more days of Augmentin PO to complete 7 days of antibiotics for possible UTI ACUTE RENAL FAILURE - resolved - on hospital day 3, crea increased from 0.8 to 1.4 - given gentle IV fluids, crea normalized HYPOTENSION, RESOLVED - from possible Septic Shock and Hypovolemia - management as noted above - Carvedilol resumed, Lisinopril held for now - monitor BP as outpatient DM Type II: A1c 5.3 ISS, Accu checks, Diabetic diet -- resume Glipizide Hypertension BP on the lower side - resume low dose Carvedilol hold Lisinopril - monitor BP as outpatient Multiple Sclerosis: continue Doxepin, Baclofen Neuro consulted, MS flare up unlikely patient back to her baseline functional status H/O DVT and PE continue Xarelto Polycythemia Vera: on Hydroxyurea Dyslipidemia continue statin MICROSCOPIC HEMATURIA - US: > 30 RBCs repeat UA as outpatient Disposition: d/c home with home health services ff up with PCP on 10/19/16 Dr. Pradhan Current Inpatient Medications: Current Inpatient Medications Medications (Trade) Dose Ordered Sig/Yesenia Route Start Time Stop Time Status Last Admin Dose Admin Acetaminophen (Tylenol Tab) 650 mg Q4H PRN PO 10/14/16 04:45 11/13/16 04:44 Ondansetron HCl (Zofran Inj) 4 mg Q6H PRN IV 10/14/16 04:45 11/13/16 04:44 Albuterol/ Ipratropium (Duoneb) 3 ml Q4R PRN INH 10/14/16 04:45 11/13/16 04:44 Insulin Aspart (novoLOG ASPART) SLIDING SCALE If C... ACHS SC 10/14/16 08:00 11/13/16 07:59 10/19/16 08:21 1 UNITS Glucose (Glucose 40% Gel) 15-30 GRAMS 15 GRAMS... UD PRN PO 10/14/16 05:00 11/13/16 04:59 Glucose (Glucose Chew Tab) 4-8 Tablets 4 Tabl... UD PRN PO 10/14/16 05:00 11/13/16 04:59 Dextrose (Dextrose 50% 50ML Syringe) 25-50ML OF 50% DW IV FOR... UD PRN IV 10/14/16 05:00 11/13/16 04:59 Glucagon (Glucagon Inj) 1 mg UD PRN SQ 10/14/16 05:00 11/13/16 04:59 Ascorbic Acid (Vitamin C Tab) 500 mg DAILY PO 10/14/16 09:00 11/13/16 08:59 10/19/16 08:17 500 MG Cyanocobalamin (Vitamin B-12 Tab) 1,000 mcg DAILY PO 10/14/16 09:00 11/13/16 08:59 10/19/16 08:15 1,000 MCG Docusate Sodium (coLACE CAP) 100 mg HS PO 10/14/16 21:00 11/13/16 20:59 10/18/16 20:03 100 MG Doxepin HCl (Sinequan Cap) 50 mg HS PO 10/14/16 21:00 11/13/16 20:59 10/18/16 20:05 50 MG Folic Acid (Folvite Tab) 1 mg QAM PO 10/14/16 09:00 11/13/16 08:59 10/19/16 08:16 1 MG Pravastatin Sodium (Pravachol Tab) 20 mg HS PO 10/14/16 21:00 11/13/16 20:59 10/18/16 20:03 20 MG Pyridoxine HCl (Vitamin B-6 Tab) 25 mg DAILY PO 10/14/16 09:00 11/13/16 08:59 10/19/16 08:16 25 MG gr-Ucnlx-Zsuasllafs Acetate (Vitamin E Cap) 400 interunit DAILY PO 10/14/16 09:00 11/13/16 08:59 10/19/16 08:16 400 INTERUNIT Cholecalciferol (Vitamin D Tab) 2,000 inter.unit DAILY PO 10/14/16 09:00 11/13/16 08:59 10/19/16 08:16 2,000 INTER.UNIT Rivaroxaban (Xarelto Tab) 20 mg HS PO 10/16/16 21:00 11/15/16 20:59 10/18/16 20:04 20 MG Hydroxyurea (Hydrea Cap) 1,000 mg QPM PO 10/16/16 21:00 11/15/16 20:59 10/18/16 20:05 1,000 MG Baclofen (Lioresal Tab) 10 mg QID PO 10/16/16 13:00 11/15/16 12:59 10/19/16 08:18 10 MG Ipratropium [place] (Atrovent 0.02% 0.5MG/2.5ML Neb) 0.5 mg Q6RWA PRN INH 10/17/16 21:00 11/16/16 20:59 Levalbuterol (Xopenex 1.25MG/ 0.5ML Neb) 1.25 mg Q6RWA PRN INH 10/17/16 21:00 11/16/16 20:59 Amoxicillin/ Clavulanate Potassium (Augmentin Tab) 875 mg BIDM PO 10/18/16 17:00 10/28/16 16:59 10/19/16 08:17 875 MG
[2016-10-19] MEDS ORDERED: AMOX1TAB43 PO (11:37)
[2016-10-19] MEDS ORDERED: IPRASOL4 INH (11:37)
[2016-10-19 11:42] VITALS: BP 111/76; PULSE 81; TEMP 36.9; O2SAT 96
--- NOTE | 2016-10-19 11:47 | Discharge Instructions ---
Discharge Instructions Date of Service October 19, 2016. Admission Reason for Admission: Shortness Of Breath Discharge Discharge Diagnosis / Problem: SHORTNESS OF BREATH, ACUTE EXACERBATION OF CONGESTIVE HEART FAILURE Discharge Goals Goal(s): Diagnostic testing, Therapeutic intervention Activity Recommendations Activity Limitations: as noted below (INCREASE ACTIVITY TOLERATED) . Instructions / Follow-Up Instructions / Follow-Up RESTRICT TOTAL FLUID INTAKE TO 1,500 ML/DAY AND SODIUM OF 2 GM (LESS THAN A TEASPOON)/DAY. ALWAYS ELEVATE THE LEGS. CALL PRIMARY CARE PHYSICIAN OR RETURN TO ER IMMEDIATELY IF WITH RECURRENCE OF SYMPTOMS, INCREASING LEG SWELLING, REDNESS, WARMTH, SHORTNESS OF BREATH, COUGH, FEVER/CHILLS, DROWSINESS, WEAKNESS. ALWAYS USE INCENTIVE SPIROMETRY. PLEASE FOLLOW UP WITH DR. STARKEY ON OCTOBER 21, 2016 AT 1:00PM. Call your Primary Care doctor if any of the following symptoms or problems start or get worse: * Shortness of breath or difficulty breathing * Wake up at night short of breath * Chest pain * Cough * Swelling of your hands, feet, or legs * More fatigued or tired with your normal activity * Palpitations - sudden fast heart beats WEIGHT * Weigh yourself every morning after using the bathroom. * Use the same scale. * Wear the same amount of clothing. * Write your weight down on a chart. * Call your Primary Care doctor if you gain more than 2-3 pounds in 1-2 days. MEDICATIONS * Use this discharge instruction sheet for medication instructions. * Take your medications at the time your doctor ordered. * Do not skip a dose of your medicines. * If you miss a dose of medicine, take it as soon as possible, but DO NOT DOUBLE A DOSE. * Read your medicine information when you get home. * Know all of the side effects of your medicine. If in doubt, ask your pharmacist * Call your Primary Care doctor's office if you have any side effects. * Be sure all of your doctors know what medicine and herbs you take (including cold, flu, and herbal medicine). Take the following with you to your follow-up doctor appointments: * Weight Chart * Medication List * List of questions Current Hospital Diet Patient's current hospital diet: Diabetes Type 2 Diet, Low Sodium Diet (2gm Na) Discharge Diet Recommended Diet: AHA Diet (Heart Healthy), Diabetes Type 2 Diet Fluid Restriction: 1500 ml (6 cups) Pending Studies Studies pending at discharge: yes List of pending studies: to be done at Primary Care Physician's Office: repeat blood work- Partial Renal Profile, repeat Urinalysis Laboratory Results Hemoglobin A1c Test 10/14/16 01:00 Range/Units Estimated Average Glucose 105 mg/dl Hemoglobin A1c 5.3 4.5-5.6 % Medical Emergencies . Who to Call and When: Call 911 or go to the Emergency Room if: * If at any time you feel your situation is an emergency * You have tightness or pain in your chest that does not go away with rest or Nitroglycerin * You are very short of breath even with rest . Non-Emergent Contact Non-Emergency issues call your: Primary Care Provider Call Non-Emergent contact if: you have any medication questions . Past History Medical & Surgical History: (1) UTI (urinary tract infection) (2) Congestive heart failure (3) SOB (shortness of breath) (4) Hypotension (5) Polycythemia vera (6) Diastolic heart failure (7) Multiple sclerosis (8) Hypercholesterolemia (9) Benign hypertension (10) Diabetes mellitus, type II (11) History of pulmonary embolism (12) History of DVT (deep vein thrombosis) (13) MTHFR mutation (14) Anticoagulated on warfarin (15) Diabetic foot ulcer (16) Nocturnal hypoxemia (17) Cellulitis of leg (18) Dependent edema . "Provider Documentation" section prepared by Jaydon Mitchell. . VTE Core Measure Inpt VTE Proph given/why not?: Other Anticoagulation (Xarelto)
--- NOTE | 2016-10-19 11:57 | Discharge Summary ---
Discharge Summary Date of Service October 19, 2016. Discharge Summary Admission Date: Oct 14, 2016 at 04:45 Discharge Date: October 19, 2016 Discharge Disposition: Home with services Principal Diagnosis: ACUTE EXACERBATION OF CHF, SYSTOLIC EF 45-50% and DIASTOLIC TYPE ACUTE HYPOXIC RESPIRATORY FAILURE Secondary Diagnoses/Problems: Please refer to hospital course below. Procedures: ECHO: * The left ventricle is normal in size. * There is moderate concentric left ventricular hypertrophy. * Left ventricular systolic function is mildly reduced. * Ejection Fraction = 45-50%. * The right ventricular systolic function is normal. * The left atrial size is normal. * Right atrial size is normal. * The mitral valve leaflets appear thickened, but open well. * There is mild to moderate mitral regurgitation. CXR: 1. Low lung volumes and chronic parenchymal changes as above. No significant change from study performed earlier today. 2. Suspect small pleural effusions. No airspace consolidation is seen typical for pneumonia. RENAL ULTRASOUND CLINICAL HISTORY: Acute kidney injury. COMPARISON STUDY: CT of the abdomen and pelvis March 30, 2010 and KUB October 15, 2016. TECHNIQUE: Sonography of the kidneys and the urinary bladder was performed. FINDINGS: This exam is significantly compromised by suboptimal penetration which particularly affects visualization of the right kidney. However, the right kidney measures approximately 11.6 x 6.7 x 6.9 cm and the left measures 10.9 x 5.7 x 4.9 cm. No hydronephrosis is identified. A Shaffer catheter is present within the bladder. Renal echogenicity, size and cortical thickness appear normal. IMPRESSION: Study significantly compromised by suboptimal penetration. No definite hydronephrosis identified. HEAD CT NONCONTRAST CT DOSE: 614.27 mGy.cm HISTORY: change in mental status TECHNIQUE: Multiaxial CT images of the head were performed without the use of intravenous contrast. Automated exposure control was utilized for this study. Comparison: Head CT 09/05/2010. Findings: The paranasal sinuses and mastoid air cells are clear. The calvarium and skull base are intact. There is no hematoma, midline shift, acute infarct. White matter hypodensity is nonspecific but suggestive of microvascular ischemic change. The ventricles and sulci demonstrate mild age-related involutional changes. Stable 11 mm extra-axial mass within the left cerebellopontine angle cistern. Impression: No acute intracranial abnormality. Atrophy and microvascular ischemic changes. Stable 11 mm extra-axial mass within the left cerebellopontine angle cistern. Given the long-term stability this favors a meningioma. Consultations: HEAT SEALING MACHINE OPERATOR DR. LAN, ORTHOTIC AIDE DR. BOOKER, FACETOR DR. LAY, NEUROLOGIST DR. HOFFMAN Pending Studies/Follow-Up: REPEAT PRP (RE: CKD, HYPOKALEMIA) AND URINALYSIS (UTI, HEMATURIA) ON FOLLOW UP; LISINOPRIL HELD; PLEASE REFER TO HOSPITAL COURSE BELOW FOR FURTHER DETAILS. Medication Reconciliation New Medications: Amoxicillin & Pot Clavulanate (Amoxicillin/Clavulanate P) 1 Tab Tab 875 MG PO BIDM for 3 Days, #6 TAB 0 Refills Ipratropium-Albuterol (Duoneb) 3 Ml Nebu 3 ML INH Q4R PRN for SOB, wheezing for 10 Days, #20 UNITS 2 Refills Continued Medications: Ascorbic Acid (Vitamin C) 500 Mg Tab 500 MG PO DAILY Baclofen (Baclofen) 10 Mg Tab 10 MG PO QID Carvedilol (Carvedilol) 3.125 Mg Tab 3.125 MG PO BID Cholecalciferol (Vitamin D3) 2,000 Unit Cap 1 CAP PO DAILY for 90 Days, #90 CAP 3 Refills Cyanocobalamin (Vitamin B-12 1000 Mcg) 1,000 Mcg Tab 1000 MCG PO DAILY, TAB Docusate Sodium (Docusate Sodium) 100 Mg Cap 1 CAP PO HS Doxepin Hcl (Sinequan) 25 Mg Cap 50 MG PO HS Folic Acid (Folic Acid) 1 Mg Tab 1 MG PO QAM Furosemide (Lasix) 20 Mg Tab 20 MG PO QAM, TAB Glipizide (Glucotrol) 5 Mg Tab 2.5 MG PO BID, TAB Hydroxyurea (Hydrea Cap) 500 Mg Cap 1000 MG PO QPM, CAP Loratadine (Claritin) 10 Mg Tab 10 MG PO DAILY PRN for ALLERGY SX, TAB Magnesium Oxide (Mag-Ox) 400 Mg Tab 400 MG PO HS Potassium Chloride Microencaps (Potassium Chloride Er) 10 Meq Tab 10 MEQ PO QAM Pravastatin (Pravachol ) 20 Mg Tab 20 MG PO HS, 0 Refills Pyridoxine HCl (Vitamin B6) 50 Mg Tab 25 MG PO DAILY Rivaroxaban (Xarelto) 20 Mg Tab 20 MG PO QPM Vitamin E (E400) 400 Unit Cap 400 UNIT PO DAILY Discontinued Medications: Lisinopril (Lisinopril) 2.5 Mg Tab 2.5 MG PO QAM Admission Information HPI (per Admitting provider): Patient is a 71 yr old female with PMH of Multiple sclerosis, Polycythemia vera , DM II, DVT on chronic anticoagulation, HTN, Diastolic CHF presents with history of SOB and worsening leg swelling. Patient is a very poor historian and no family member available to obtain history. As per patient, patient has been having SOB on and off lately which has has been progressively worsening. Also noticed increased bilateral leg swelling since last 2 weeks. Reports feeling feverish intermittently as well since 1 week. Also states having PND. Denies any history of cough, wheezing, chest pain, palpitations, orthopnea, abd pain, change in bowel/bladder habits, headache, dizziness or any sick contact. She is bed bound at baseline but denies any history of aspiration.SOB has especially worsening since yesterday and so came to ED for further evaluation. Physical Exam (per Admitting): General Appearance: WD/WN, no apparent distress, + pertinent finding ( Chronically ill appearing) Head: normocephalic, atraumatic Eyes: normal inspection, PERRL, EOMI, sclerae normal ENT: normal ENT inspection, hearing grossly normal Neck: supple, trachea midline Respiratory/Chest: chest non-tender, normal breath sounds, no respiratory distress, no accessory muscle use, + crackles Cardiovascular: regular rate, rhythm, no murmur, + pertinent finding (2+ B/ L LE edema) Abdomen/GI: normal bowel sounds, non tender, soft Back: normal inspection Extremities/Musculoskelatal: normal inspection, + pedal edema Neurologic/Psych: sql data analyst II-XII nml as tested, no motor/sensory deficits, alert , normal mood/affect, oriented x 3 Skin: normal color, warm/dry Hospital Course 71 year old female with history of CHF Diastolic Type and Moderate Mitral Regurgitation, DM, HTN, Multiple Sclerosis, DVT and PE on Xarelto, Obstructive Sleep Apnea, presenting with shortness of breath and leg swelling x few days. ACUTE EXACERBATION OF CHF, SYSTOLIC EF 45-50% and DIASTOLIC TYPE ACUTE HYPOXIC RESPIRATORY FAILURE - presented with hypoxia, shortness of breath, wheezing, increased leg swelling - usually on Lasix 20mg PO daily - on admission, started with lasix 40mg IV BID with some diuresis - updated echo: * The left ventricle is normal in size. * There is moderate concentric left ventricular hypertrophy. * Left ventricular systolic function is mildly reduced. * Ejection Fraction = 45-50%. * The right ventricular systolic function is normal. * The left atrial size is normal. * Right atrial size is normal. * The mitral valve leaflets appear thickened, but open well. * There is mild to moderate mitral regurgitation. - on hospital day 3, crea increased from 0.8 to 1.4 patient was hypotensive systolic 80s, lethargic Lasix held, given gentle IV fluids Construction Pit Worker Dr. Booker, consulted patient was transferred to ICU-- management as noted in #2 -- patient improved and was transferred to regular room noted to have (+) weight gain, increased leg edema Lasix 20mg IV given with -2L fluid balance, BP systolic 100s -- in terms of diuretics, will hold off on any additional Lasix IV as patient has tendency to have hypotension and acute renal failure resume usual Lasix 20mg po daily for now patient and family advised on fluid restriction of 1.5L and 2g Na diet /day , elevate legs advised to call PCP immediately if with increasing leg swelling patient will need 2 liters O2 by nasal cannula for now, wean off accordingly home health services arranged LETHARGY, RESOLVED, POSSIBLE TOXIC METABOLIC ENCEPHALOPATHY FROM: POSSIBLE SEPTIC SHOCK- UTI, BRONCHITIS - noted to be lethargic, hypotensive on Day 3 - blood cultures: 1/2 coag neg staph,not lugdunensis (likely contamination) repeat blood cultures: negative - Urinalysis: highly indicative of UTI urine culture: negative (partially treated? has received Levaquin prior to cultures) - transferred to ICU given IV fluids, antibiotics broadened with Zosyn added to Levaquin IV required short term Vasopressin placed on Hydrocortisone taper Vancomycin received x 2 days, Zosyn x 4 days will need to complete 3 more days of Augmentin PO to complete 7 days of antibiotics for possible UTI ACUTE RENAL FAILURE - resolved - on hospital day 3, crea increased from 0.8 to 1.4 - given gentle IV fluids, crea normalized HYPOTENSION, RESOLVED - from possible Septic Shock and Hypovolemia - management as noted above - Carvedilol resumed, Lisinopril held for now - monitor BP as outpatient DM Type II: A1c 5.3 ISS, Accu checks, Diabetic diet -- resume Glipizide Hypertension BP on the lower side - resume low dose Carvedilol hold Lisinopril - monitor BP as outpatient Multiple Sclerosis: continue Doxepin, Baclofen Neuro consulted, MS flare up unlikely patient back to her baseline functional status H/O DVT and PE continue Xarelto Polycythemia Vera: on Hydroxyurea Dyslipidemia continue statin MICROSCOPIC HEMATURIA - US: > 30 RBCs repeat UA as outpatient MENINGIOMA stable per CT head report Stable 11 mm extra-axial mass within the left cerebellopontine angle cistern. Given the long-term stability this favors a meningioma. - ff up Disposition: d/c home with home health services ff up with PCP on 10/19/16 Dr. Pradhan Total time spent on discharge = 45 MINUTES This includes examination of the patient, discharge planning, medication reconciliation, and communication with other providers. Discharge Instructions Discharge Instructions Date of Service October 19, 2016. Admission Reason for Admission: Shortness Of Breath Discharge Discharge Diagnosis / Problem: SHORTNESS OF BREATH, ACUTE EXACERBATION OF CONGESTIVE HEART FAILURE Discharge Goals Goal(s): Diagnostic testing, Therapeutic intervention Activity Recommendations Activity Limitations: as noted below (INCREASE ACTIVITY TOLERATED) . Instructions / Follow-Up Instructions / Follow-Up RESTRICT TOTAL FLUID INTAKE TO 1,500 ML/DAY AND SODIUM OF 2 GM (LESS THAN A TEASPOON)/DAY. ALWAYS ELEVATE THE LEGS. CALL PRIMARY CARE PHYSICIAN OR RETURN TO ER IMMEDIATELY IF WITH RECURRENCE OF SYMPTOMS, INCREASING LEG SWELLING, REDNESS, WARMTH, SHORTNESS OF BREATH, COUGH, FEVER/CHILLS, DROWSINESS, WEAKNESS. ALWAYS USE INCENTIVE SPIROMETRY. PLEASE FOLLOW UP WITH DR. PRADHAN ON OCTOBER 21, 2016 AT 1:00PM. Call your Primary Care doctor if any of the following symptoms or problems start or get worse: * Shortness of breath or difficulty breathing * Wake up at night short of breath * Chest pain * Cough * Swelling of your hands, feet, or legs * More fatigued or tired with your normal activity * Palpitations - sudden fast heart beats WEIGHT * Weigh yourself every morning after using the bathroom. * Use the same scale. * Wear the same amount of clothing. * Write your weight down on a chart. * Call your Primary Care doctor if you gain more than 2-3 pounds in 1-2 days. MEDICATIONS * Use this discharge instruction sheet for medication instructions. * Take your medications at the time your doctor ordered. * Do not skip a dose of your medicines. * If you miss a dose of medicine, take it as soon as possible, but DO NOT DOUBLE A DOSE. * Read your medicine information when you get home. * Know all of the side effects of your medicine. If in doubt, ask your pharmacist * Call your Primary Care doctor's office if you have any side effects. * Be sure all of your doctors know what medicine and herbs you take (including cold, flu, and herbal medicine). Take the following with you to your follow-up doctor appointments: * Weight Chart * Medication List * List of questions Current Hospital Diet Patient's current hospital diet: Diabetes Type 2 Diet, Low Sodium Diet (2gm Na) Discharge Diet Recommended Diet: AHA Diet (Heart Healthy), Diabetes Type 2 Diet Fluid Restriction: 1500 ml (6 cups) Pending Studies Studies pending at discharge: yes List of pending studies: to be done at Primary Care Physician's Office: repeat blood work- Partial Renal Profile, repeat Urinalysis Laboratory Results Hemoglobin A1c Test 10/14/16 01:00 Range/Units Estimated Average Glucose 105 mg/dl Hemoglobin A1c 5.3 4.5-5.6 % Medical Emergencies . Who to Call and When: Call 911 or go to the Emergency Room if: * If at any time you feel your situation is an emergency * You have tightness or pain in your chest that does not go away with rest or Nitroglycerin * You are very short of breath even with rest . Non-Emergent Contact Non-Emergency issues call your: Primary Care Provider Call Non-Emergent contact if: you have any medication questions . Past History Medical & Surgical History: (1) UTI (urinary tract infection) (2) Congestive heart failure (3) SOB (shortness of breath) (4) Hypotension (5) Polycythemia vera (6) Diastolic heart failure (7) Multiple sclerosis (8) Hypercholesterolemia (9) Benign hypertension (10) Diabetes mellitus, type II (11) History of pulmonary embolism (12) History of DVT (deep vein thrombosis) (13) MTHFR mutation (14) Anticoagulated on warfarin (15) Diabetic foot ulcer (16) Nocturnal hypoxemia (17) Cellulitis of leg (18) Dependent edema . "Provider Documentation" section prepared by Jaydon Mitchell. . VTE Core Measure Inpt VTE Proph given/why not?: Other Anticoagulation (Xarelto)
[2016-10-19 12:07] VITALS: BP 111/76; PULSE 81; TEMP 36.9; O2SAT 96
[2016-10-19] MEDS ORDERED: POTASSIUM CHLORIDE 20 MEQ TABCR PO ONE (13:00)
== END 2016-10-19 15:11 | disposition home health service (06) | DRG 871 ==
LOC: ENRESERVDT → ENRESERVTM → EDBD 00:44 → C.EDB 00:45 → C.MED 04:45 → EDBEDREQ 10-15 07:49 → C.2T 10-15 08:19 → C.MSICU 10-15 11:07 → C.4E 10-16 16:32
PROVIDERS: ADMIT Internal Medicine; ATTEND Hospitalist
DX: A41.9 Sepsis, unspecified organism (principal); I50.43 Acute on chronic combined systolic (congestive) and diastolic (congestive) heart failure; J96.01 Acute respiratory failure with hypoxia; E72.12 Methylenetetrahydrofolate reductase deficiency; N39.0 Urinary tract infection, site not specified; R65.21 Severe sepsis with septic shock; N17.9 Acute kidney failure, unspecified; G92 Toxic encephalopathy; D32.0 Benign neoplasm of cerebral meninges; I10 Essential (primary) hypertension; E11.9 Type 2 diabetes mellitus without complications; Z86.718 Personal history of other venous thrombosis and embolism; Z86.711 Personal history of pulmonary embolism; E78.00 Pure hypercholesterolemia, unspecified; G35 Multiple sclerosis; D45 Polycythemia vera; Z87.891 Personal history of nicotine dependence; Z79.01 Long term (current) use of anticoagulants; I34.0 Nonrheumatic mitral (valve) insufficiency; E86.0 Dehydration; G47.33 Obstructive sleep apnea (adult) (pediatric)

== ENCOUNTER 2017-06-07 05:06 | Inpatient (IN) | payer BC, OTHER ==
[~2017-06-07] VITALS: Ht 160 cm; Wt 82.0 kg
[2017-06-07] VITALS (18 sets, daily range): BP systolic 103–128; BP diastolic 54–82; PULSE 80–92; TEMP 36.6; O2SAT 82–95; Ht 160 cm; Wt 82.0 kg
[~2017-06-07 05:06] MED LIST changes: +AMOX1TAB43 PO; +CHOL2000 PO; -CHOLTAB9 PO; -CLC100 PO; +CLR10 PO; +CYAN10004 PO; -CYAN1CAP4 PO; +DOCU100C31 PO; +DOXE25CA2 PO; +FURO-85 PO; +GLIP5TAB11 PO; -INSDGI SC; +IPRASOL4 INH; -LSN25 PO; -LSX40 PO; -NVLGI SC; -POTA-327 PO; +POTA10TA32 PO; -PYRI100T4 PO; +PYRI1TAB40 PO; -SNQ25 PO; +VITA1CAP5 PO; -VITA400C15 PO; -WARF5TAB90 PO; -WARF7.5T PO; +XRL20 PO
[2017-06-07] MEDS ORDERED: NOREPINEPHRINE BIT INJ 8 MG in DEXTROSE 5% 500ML 500 ML IV STA (05:10)
[2017-06-07] MEDS ORDERED: DOBUTamine 500MG / 250ML D5W ONE (05:11)
[2017-06-07] MEDS ORDERED: DOBUTamine / D5W 500 MG IV PRN (05:15)
--- NOTE | 2017-06-07 05:17 | EMERGENCY ROOM VISIT NOTE ---
History Report prepared by Tex: Geovanna Cueto Under the Supervision of: Dr. Geovany Poe M.D. First contact with patient: 05:07 Chief Complaint: RESPIRATORY DISTRESS Stated Complaint: RESPIRATORY DISTRESS History of Present Illness The patient is a 66 year old female who presents to the Emergency Room with complaints of an episode of respiratory distress beginning just prior to arrival. Per EMS, the patient had a pulse oxygen of [address] to the ED. At baseline, the patient wears 2 liters of oxygen and is bed bound. Per EMS, the patient started to have shortness of breath beginning 4 days ago. Family believed the patient has a cold until her breathing worsened a couple hours ago. EMS states the patient is a little "worse" than her baseline per family. History limited secondary to respiratory distress. Source of History: EMS History Limited By: other (respiratory distress) Onset: just prior to arrival Position: other (global) Quality: other (shortness of breath) Timing: other (episode) Review of Systems ROS limited secondary to the patient's respiratory distress. Past Medical & Surgical Medical Problems: (1) Anticoagulated on warfarin (2) Benign hypertension (3) Diabetes mellitus, type II (4) Diastolic heart failure (5) History of DVT (deep vein thrombosis) (6) History of pulmonary embolism (7) Hypercholesterolemia (8) Hypotension (9) MTHFR mutation (10) Multiple sclerosis (11) Nocturnal hypoxemia (12) Polycythemia vera (13) SOB (shortness of breath) Family History No pertinent family history Social History Housing Status: lives with family Current/Historical Medications Scheduled Ascorbic Acid (Vitamin C), 500 MG PO DAILY Baclofen (Baclofen), 10 MG PO QID Carvedilol (Carvedilol), 3.125 MG PO BID Cholecalciferol (Vitamin D3), 1 CAP PO DAILY Cyanocobalamin (Vitamin B-12 1000 Mcg), 1,000 MCG PO DAILY Docusate Sodium (Docusate Sodium), 1 CAP PO HS Doxepin Hcl (Sinequan), 50 MG PO HS Folic Acid (Folic Acid), 1 MG PO QAM Furosemide (Lasix), 20 MG PO QAM Glipizide (Glucotrol), 2.5 MG PO BID Home O2 Therapy (Oxygen), 2 LITERS NA CONTINOUS Hydroxyurea (Hydrea Cap), 1,000 MG PO QPM Ipratropium-Albuterol (Duoneb), 1 TREATMENT INH QID Magnesium Oxide (Mag-Ox), 400 MG PO HS Potassium Chloride Microencaps (Potassium Chloride Er), 10 MEQ PO QAM Pravastatin (Pravachol ), 20 MG PO HS Pyridoxine HCl (Vitamin B6), 25 MG PO DAILY Rivaroxaban (Xarelto), 20 MG PO QDD Vitamin E (E400), 400 UNIT PO DAILY Scheduled PRN Loratadine (Claritin), 10 MG PO DAILY PRN for ALLERGY SX Nystatin (Topical) (Nystatin), 1 DOSE TD TID PRN for AFFECTED SKIN AREA Allergies Coded Allergies: No Known Allergies (Verified , 06/07/17) Physical Exam Vital Signs Date Time Temp Pulse Resp B/P (MAP) Pulse Ox O2 Delivery O2 Flow Rate FiO2 06/07/17 06:20 89 90 100 06/07/17 06:14 89 29 117/76 92 BiPAP 100 06/07/17 05:52 97 32 109/68 89 BiPAP 100 06/07/17 05:16 113 06/07/17 05:15 89 Non-Rebreather 06/07/17 05:11 114 30 89/60 89 Non-Rebreather Physical Exam GENERAL: Patient is chronically ill and severely unwell appearing and in moderate distress. Leans to right(chronic per ems and family) HEENT: No acute trauma, normocephalic atraumatic, mucous membranes moist, no nasal congestion, no scleral icterus. NECK: No stridor, no adenopathy, no meningismus, trachea is midline. LUNGS: Dyspneic. Diffuse crackles and rales in all lung key. HEART: Mildly tachycardic. No murmurs, rubs, gallops appreciated. ABDOMEN: Soft, nontender, bowel sounds positive, no masses appreciated, no peritonitis. BACK: No midline tenderness, no CVA tenderness EXTREMITIES: 4 + bilateral lower extremity edema. Normal motion all extremities , no cyanosis. NEUROLOGIC:Confused, mumbling, no acute motor or sensory deficits, no focal weakness, cranial nerves grossly intact. SKIN: No rash, no jaundice, no diaphoresis. Medical Decision & Procedures ER Provider Diagnostic Interpretation: X ray results are stated below per my interpretation: Chest: 1 view: Large globular heart, minimal air space in right lung similar to previous, minimal congestive finding throughout left lung key. Laboratory Results 06/07/17 05:04 Red Blood Count 5.01, Mean Corpuscular Volume 96.2, Mean Corpuscular Hemoglobin 27.5, Mean Corpuscular Hemoglobin Concent 28.6, Mean Platelet Volume 10.8, Neutrophils (%) (Auto) 85.9, Lymphocytes (%) (Auto) 6.7, Monocytes (%) (Auto) 6.8, Eosinophils (%) (Auto) 0.1, Basophils (%) (Auto) 0.2, Neutrophils # (Auto) 14.82, Lymphocytes # (Auto) 1.16, Monocytes # (Auto) 1.17, Eosinophils # (Auto) 0.01, Basophils # (Auto) 0.03 06/07/17 05:04 Test 06/07/17 00:00 06/07/17 05:04 06/07/17 05:33 06/07/17 05:45 Influenza Type A (RT-PCR) Neg for Influ A (NEG) Influenza Type B (RT-PCR) Neg for Influ B (NEG) White Blood Count 17.25 K/uL (4.8-10.8) Red Blood Count 5.01 M/uL (4.2-5.4) Hemoglobin 13.8 g/dL (12.0-16.0) Hematocrit 48.2 % (37-47) Mean Corpuscular Volume 96.2 fL (80-100) Mean Corpuscular Hemoglobin 27.5 pg (25-34) Mean Corpuscular Hemoglobin Concent 28.6 g/dl (32-36) Platelet Count 448 K/uL (130-400) Mean Platelet Volume 10.8 fL (7.4-10.4) Neutrophils (%) (Auto) 85.9 % Lymphocytes (%) (Auto) 6.7 % Monocytes (%) (Auto) 6.8 % Eosinophils (%) (Auto) 0.1 % Basophils (%) (Auto) 0.2 % Neutrophils # (Auto) 14.82 K/uL (1.4-6.5) Lymphocytes # (Auto) 1.16 K/uL (1.2-3.4) Monocytes # (Auto) 1.17 K/uL (0.11-0.59) Eosinophils # (Auto) 0.01 K/uL (0-0.5) Basophils # (Auto) 0.03 K/uL (0-0.2) RDW Standard Deviation 68.6 fL (36.4-46.3) RDW Coefficient of Variation 20.0 % (11.5-14.5) Immature Granulocyte % (Auto) 0.3 % Immature Granulocyte # (Auto) 0.06 K/uL (0.00-0.02) Nucleated RBC Absolute Count (auto) 0.05 K/uL (0-0) Nucleated Red Blood Cells % 0.3 % Polychromasia 1+ Anisocytosis PRESENT Stomatocytes 1+ Prothrombin Time 15.3 SECONDS (9.0-12.0) Prothromb Time International Ratio 1.5 (0.9-1.1) Activated Partial Thromboplast Time 33.7 SECONDS (21.0-31.0) Partial Thromboplastin Ratio 1.3 Anion Gap 0.0 mmol/L (3-11) Est Creatinine Clear Calc Drug Dose 66.2 ml/min Estimated GFR () 87.3 Estimated GFR (Non- 75.3 BUN/Creatinine Ratio 30.2 (10-20) Calcium Level 9.1 mg/dl (8.5-10.1) Phosphorus Level 4.3 mg/dl (2.5-4.9) Magnesium Level 2.3 mg/dl (1.8-2.4) Total Bilirubin 0.6 mg/dl (0.2-1) Direct Bilirubin 0.2 mg/dl (0-0.2) Aspartate Amino Transf (AST/SGOT) 1195 U/L (15-37) Alanine Aminotransferase (ALT/SGPT) 900 U/L (12-78) Alkaline Phosphatase 219 U/L (45-117) Total Creatine Kinase 46 U/L (26-192) Creatine Kinase MB 0.6 ng/ml (0.5-3.6) Creatine Kinase MB Ratio 1.3 (0-3.0) Troponin I < 0.015 ng/ml (0-0.045) Total Protein 8.0 gm/dl (6.4-8.2) Albumin 2.6 gm/dl (3.4-5.0) Lipase 478 U/L (73-393) Procalcitonin 0.45 ng/ml (0-0.5) Thyroid Stimulating Hormone (TSH) 0.906 uIu/ml (0.300-4.500) Bedside Lactic Acid Venous 2.10 mmol/L (0.90-1.70) Urine Color BROWN Urine Appearance CLOUDY (CLEAR) Urine pH 7.0 (4.5-7.5) Urine Specific [place] 1.022 (1.000-1.030) Urine Protein 2+ (NEG) Urine Glucose (UA) NEG (NEG) Urine Ketones TRACE (NEG) Urine Occult Blood 2+ (NEG) Urine Nitrite NEG (NEG) Urine Bilirubin NEG (NEG) Urine Urobilinogen NEG (NEG) Urine Leukocyte Esterase MODERATE (NEG) Urine WBC (Auto) >30 /hpf (0-5) Urine RBC (Auto) >30 /hpf (0-4) Urine Hyaline Casts (Auto) 1-5 /lpf (0-5) Urine Epithelial Cells (Auto) >30 /lpf (0-5) Urine Bacteria (Auto) 4+ (NEG) Urine Pathogenic Casts /lpf (0) Urine Yeast (Auto) BUDDING (NONE PRSENT) Test 06/07/17 06:02 Lactic Acid Level 1.6 mmol/L (0.4-2.0) Laboratory results as reviewed by me. Medications Administered Medications (Trade) Dose Ordered Sig/Yesenia Route Start Time Stop Time Status Last Admin Dose Admin Norepinephrine Bitartrate 8 mg/ Dextrose 508 ml @ 0 mls/hr Q0M STAT IV 06/07/17 05:10 06/07/17 05:12 DC 06/07/17 05:42 30.8 MLS/HR Hydrocortisone Sodium Succinate (Solu-Cortef IV) 100 mg NOW STAT IV 06/07/17 05:18 06/07/17 05:20 DC 06/07/17 05:29 100 MG Vancomycin HCl 2000 mg/Sodium Chloride 540 ml @ 200 mls/hr ONE STAT IV 06/07/17 05:22 06/07/17 08:03 DC 06/07/17 07:47 200 MLS/HR Piperacillin Sod/ Tazobactam Sod (Zosyn Iv) 4.5 gm NOW STAT IV 06/07/17 05:22 06/07/17 05:25 DC 06/07/17 06:08 4.5 GM Sodium Chloride 1,000 ml @ 999 mls/hr Q1H1M STAT IV 06/07/17 05:26 06/07/17 06:26 DC 06/07/17 05:29 999 MLS/HR ECG Indication: SOB/dyspnea Rate (beats per minute): 115 Rhythm: sinus tachycardia Findings: no acute ischemic change, no ectopy ED Course 0508: The patient was evaluated in room B1. A complete history and physical exam was performed. 0510: Ordered Norepinephrine Bitartrate 8 mg/Dextrose 508 ml @ mls/hr Protocol IV. 0511: Ordered Dobutamine HCl 500 mg .ROUTE. 0515: Ordered Dobutamine HCl 250 ml @ 0 mls/hr IV. 0518: Ordered Solu-Cortef IV 100 mg IV. 0522: Ordered Zosyn Iv 4.5 gm IV, Vancomycin HCl 2000 mg/Sodium Chloride 540 ml 200 mls/hr IV. 0526: Ordered Sodium Chloride 1000 ml @ 999 mls/hr. 0528: Discussed the patient's case with Dr. Wagner. The patient will be evaluated for further treatment and disposition. Medical Decision Differential: Infectious, Reactive Airway Disease, Pneumonia, Pneumothorax, COPD , CHF, ACS, Pulmonary Embolism, MSK, GI, Dissection, amongst other etiologies entertained. 72 yr old female arrives in acute respiratory failure that was rapid onset over last few hours. Hypotensive/Tachy and hypoxic with decreased mentation. She was initially placed on BiPAP with some improvement though not tolerating well so switched by to high flow o2. While story consistent with acute CXR, her CXR is not overly concerning and she has evidence of infection/sepsis. She was given fluid bolus and transitioned to levophed given CHF history. She only had mild lactic elevation and with her CHF history I feel any further fluid bolus likely would result in further respiratory failure. She is DNI per daughter, thus further fluids would surely result in her . Broad spectrum ABX initiated. Patient switched back to BiPAP given poor oxygenation and seemed to tolerate it better second time. Hospitalist and CCM involved early in patient care. Medication Reconcilliation Current Medication List: was personally reviewed by me Blood Pressure Screening Patient's blood pressure: Low blood pressure Blood pressure disposition: Referred to PCP (evaluated by hosppitalist) Consults Time Called: [phone] Consulting Physician: Dr. Wagner Returned Call: [phone] Discussed the patient's case. The patient will be evaluated for further treatment and disposition. Impression Primary Impression: Respiratory failure Critical Care I have personally spent greater than 35 minutes of critical care time in the direct management of this patient. This was a life/limb threatening event. This includes time spent evaluating patient, direct bedside care, chart review, placing orders, interpretation of diagnostic studies, discussion with consultants, patient, and family members, as well as other required patient management activities. This 35 minutes is in excess of all separately billable procedures. Scribe Attestation The scribe's documentation has been prepared under my direction and personally reviewed by me in its entirety. I confirm that the note above accurately reflects all work, treatment, procedures, and medical decision making performed by me. Departure Information Dispostion Being Evaluated By Hospitalist Patient Instructions Asthma - [facility], COPD - [facility], Croup - [facility], My [facility]
[2017-06-07] MEDS ORDERED: HYDROCORTISONE SOD SUCCINATE 100 MG/2 ML VIAL IV STA (05:18)
[2017-06-07] MEDS ORDERED: PIPERACILLIN/TAZOBACTAM 4.5 GM/100ML D5W IV STA (05:22)
[2017-06-07] MEDS ORDERED: VANCOMYCIN INJ 2,000 MG in SODIUM CHLORIDE 0.9% 500ML 500 ML IV STA (05:22)
[2017-06-07] MEDS ORDERED: SODIUM CHLORIDE 0.9% 1000ML 1,000 ML IV STA (05:26)
[2017-06-07] MEDS ORDERED: OXGN (05:33)
[2017-06-07] MEDS ORDERED: IPRASOL4 INH (05:33)
[2017-06-07] MEDS ORDERED: NYST100033 TD (05:33)
[2017-06-07 05:42] LABS: INR 1.5 (0.9-1.1); PARTIAL THROMBOPLASTIN RATIO 1.3; PROTHROMBIN TIME (PATIENT) 15.3 SECONDS (9.0-12.0)
[2017-06-07 05:44] LABS: HEMATOCRIT 48.2 % (37-47); MEAN CELL VOLUME 96.2 fL (80-100); MEAN CORPUSCULAR HEMOGLOBIN 27.5 pg (25-34); MEAN CORPUSCULAR HGB CONC 28.6 g/dl (32-36); MEAN PLATELET VOLUME 10.8 fL (7.4-10.4); PLATELET COUNT 448 K/uL (130-400); RED BLOOD COUNT 5.01 M/uL (4.2-5.4); WHITE BLOOD COUNT 17.25 K/uL (4.8-10.8)
[2017-06-07 05:46] LABS: ISTAT ARTERIAL BLOOD GAS HCO3 47 meq/L (19-24); ISTAT ARTERIAL BLOOD GAS PCO2 90 mmHg (35-46); ISTAT ARTERIAL BLOOD GAS PO2 81 mmHg (80-95); ISTAT ARTERIAL BLOOD GAS pH 7.33 (7.35-7.45); ISTAT CARBON DIOXIDE > 40 mEq/l (24-31)
[2017-06-07 06:10] LABS: ALKALINE PHOSPHATASE 219 U/L (45-117); ALT/SGPT 900 U/L (12-78); AST/SGOT 1195 U/L (15-37); BLOOD UREA NITROGEN 24 mg/dl (7-18); BUN/CREATININE RATIO 30.2 (10-20); CALCIUM 9.1 mg/dl (8.5-10.1); CARBON DIOXIDE 44 mmol/L (21-32); CHLORIDE 94 mmol/L (98-107); CKMB/CK RATIO 1.3 (0-3.0); CREATININE 0.79 mg/dl (0.60-1.20); GLUCOSE 263 mg/dl (70-99); MAGNESIUM 2.3 mg/dl (1.8-2.4); PHOSPHORUS 4.3 mg/dl (2.5-4.9); POTASSIUM 4.6 mmol/L (3.5-5.1); SODIUM 138 mmol/L (136-145)
--- NOTE | 2017-06-07 06:21 | Critical Care Consultation ---
Critical Care Consultation Date of Consultation: Jun 07, 2017. Attending Physician: Dr. Forte Reason for Consultation: Respiratory Distress History of Present Illness Namrata Galaviz is a 72 yo female who has presented to the [facility] ICU previously for CHF excarbations. Today she arrived to the ED secondary to respiratory distress. Pulse Ox via EMS was 70%. Pt wears 2L home O2. Family members stated that pt has had recent cold symptoms and started feeling short of breath 4 days ago. Pt notes current ailment to only be slightly less than her baseline breathing issues. Pt was treated in the ED with Levophed, Dobutamine, Solu-Cortef, Zosyn & Vanco and 1L bolus of NSS. Respiratory rate remains in the low 30's, Pulse ox of 90 on 100% BiPap. Pt has a PMHx of MS, polycythemia vera, DM2, and DVT on Chronic Anticoagulation , HTN, and Diastolic CHF. Most recent admission was 10/14/16 for hypotension and CHF. ECHO on that admission demonstrated * The left ventricle is normal in size. * There is moderate concentric left ventricular hypertrophy. * Left ventricular systolic function is mildly reduced. * Ejection Fraction = 45-50%. * The right ventricular systolic function is normal. * The left atrial size is normal. * Right atrial size is normal. * The mitral valve leaflets appear thickened, but open well. * There is mild to moderate mitral regurgitation. ROS could not be obtained secondary to lethargy, sedation, and respiratory distress. Past Medical/Surgical History Medical Problems: (1) Anticoagulated on warfarin (2) Benign hypertension (3) Diabetes mellitus, type II (4) Diastolic heart failure (5) History of DVT (deep vein thrombosis) (6) History of pulmonary embolism (7) Hypercholesterolemia (8) Hypotension (9) MTHFR mutation (10) Multiple sclerosis (11) Nocturnal hypoxemia (12) Polycythemia vera (13) SOB (shortness of breath) Family History No pertinent family history Social History Smoking Status: Unknown if Ever Smoked Drug Use: none Marital Status: Housing Status: lives with family Occupation Status: disabled Allergies Coded Allergies: No Known Allergies (Verified , 06/07/17) Home Medications Scheduled Ascorbic Acid (Vitamin C), 500 MG PO DAILY Baclofen (Baclofen), 10 MG PO QID Carvedilol (Carvedilol), 3.125 MG PO BID Cholecalciferol (Vitamin D3), 1 CAP PO DAILY Cyanocobalamin (Vitamin B-12 1000 Mcg), 1,000 MCG PO DAILY Docusate Sodium (Docusate Sodium), 1 CAP PO HS Doxepin Hcl (Sinequan), 50 MG PO HS Folic Acid (Folic Acid), 1 MG PO QAM Furosemide (Lasix), 20 MG PO QAM Glipizide (Glucotrol), 2.5 MG PO BID Home O2 Therapy (Oxygen), 2 LITERS NA CONTINOUS Hydroxyurea (Hydrea Cap), 1,000 MG PO QPM Ipratropium-Albuterol (Duoneb), 1 TREATMENT INH QID Magnesium Oxide (Mag-Ox), 400 MG PO HS Potassium Chloride Microencaps (Potassium Chloride Er), 10 MEQ PO QAM Pravastatin (Pravachol ), 20 MG PO HS Pyridoxine HCl (Vitamin B6), 25 MG PO DAILY Rivaroxaban (Xarelto), 20 MG PO QDD Vitamin E (E400), 400 UNIT PO DAILY Scheduled PRN Loratadine (Claritin), 10 MG PO DAILY PRN for ALLERGY SX Nystatin (Topical) (Nystatin), 1 DOSE TD TID PRN for AFFECTED SKIN AREA Current Inpatient Medications Current Inpatient Medications Medications (Trade) Dose Ordered Sig/Yesenia Route Start Time Stop Time Status Last Admin Dose Admin Dobutamine HCl 250 ml @ 0 mls/hr Q0M PRN IV 06/07/17 05:15 07/07/17 05:14 Vancomycin HCl 2000 mg/Sodium Chloride 540 ml @ 200 mls/hr ONE STAT IV 06/07/17 05:22 06/07/17 08:03 Sodium Chloride 1,000 ml @ 999 mls/hr Q1H1M STAT IV 06/07/17 05:26 06/07/17 06:26 06/07/17 05:29 999 MLS/HR Doxycycline Hyclate 100 mg/ Dextrose 110 ml @ 50 mls/hr ONE ONCE IV 06/07/17 05:45 06/07/17 07:56 UNV Oseltamivir Phosphate (Tamiflu Susp) 75 mg ONE PO 06/07/17 05:45 06/12/17 05:44 UNV Review of Systems ROS could not be obtained secondary to lethargy, sedation, and respiratory distress. Physical Exam Date Time Temp Pulse Resp B/P (MAP) Pulse Ox O2 Delivery O2 Flow Rate FiO2 06/07/17 06:14 89 29 117/76 92 BiPAP 100 06/07/17 05:52 97 32 109/68 89 BiPAP 100 06/07/17 05:16 113 06/07/17 05:15 89 Non-Rebreather 06/07/17 05:11 114 30 89/60 89 Non-Rebreather Vital Signs - as noted Laboratory Data - as noted Physical Exam: General - Lethargic but able to be aroused . can not stay alert to follow directions Eyes - PERRL, No icterus, gaze conjugate ENT - Mucosa dry, Bipap mask in place Neck - Supple, trachea midline, no masses or lymphadenopathy, no JVD or bruits Lungs - No paradoxical chest wall movement, diminished auscultation bilaterally , minimal right sided breath sounds, no wheezes, rales, or rhonchi Heart - Reg rate and rhythm, No murmur, rubs, clicks, or gallops appreciated Abdomen - BS present, no bruits noted, tympanic to percussion, soft, nontender, nondistended,obese, no organomegaly Extremities - Edema noted, pedal pulses intact Neuro - Rass -1, Fede Coma Scale: 10 Strength moves all extremities CN:PERRL, no facial asymmetry, uvula/tongue midline Laboratory Results Last 24 Hours Test 06/07/17 00:00 06/07/17 05:04 06/07/17 05:20 06/07/17 05:33 White Blood Count 17.25 K/uL Red Blood Count 5.01 M/uL Hemoglobin 13.8 g/dL Hematocrit 48.2 % Mean Corpuscular Volume 96.2 fL Mean Corpuscular Hemoglobin 27.5 pg Mean Corpuscular Hemoglobin Concent 28.6 g/dl Platelet Count 448 K/uL Mean Platelet Volume 10.8 fL RDW Standard Deviation 68.6 fL RDW Coefficient of Variation 20.0 % Nucleated RBC Absolute Count (auto) 0.05 K/uL Nucleated Red Blood Cells % 0.3 % Prothrombin Time 15.3 SECONDS Prothromb Time International Ratio 1.5 Activated Partial Thromboplast Time 33.7 SECONDS Partial Thromboplastin Ratio 1.3 Sodium Level 138 mmol/L Potassium Level 4.6 mmol/L Chloride Level 94 mmol/L Carbon Dioxide Level 44 mmol/L Anion Gap 0.0 mmol/L Blood Urea Nitrogen 24 mg/dl Creatinine 0.79 mg/dl Est Creatinine Clear Calc Drug Dose 66.2 ml/min Estimated GFR () 87.3 Estimated GFR (Non- 75.3 BUN/Creatinine Ratio 30.2 Random Glucose 263 mg/dl Calcium Level 9.1 mg/dl Phosphorus Level 4.3 mg/dl Magnesium Level 2.3 mg/dl Total Bilirubin 0.6 mg/dl Direct Bilirubin 0.2 mg/dl Aspartate Amino Transf (AST/SGOT) 1195 U/L Alanine Aminotransferase (ALT/SGPT) 900 U/L Alkaline Phosphatase 219 U/L Total Creatine Kinase 46 U/L Creatine Kinase MB 0.6 ng/ml Creatine Kinase MB Ratio 1.3 Troponin I < 0.015 ng/ml Total Protein 8.0 gm/dl Albumin 2.6 gm/dl Lipase 478 U/L Procalcitonin 0.45 ng/ml Bedside Blood Gas pH (LAB) 7.33 Bedside Blood Gas pCO2 (LAB) 90 mmHg Bedside Blood Gas pO2 (LAB) 81 mmHg Bedside Blood Gas HCO3 (LAB) 47 meq/L Bedside Blood Gas Total CO2 > 40 mEq/l Bedside Blood Gas Base Excess (LAB) 21.0 meq/L Bedside Blood Gas O2 Saturation 94.0 % Bedside Lactic Acid Venous 2.10 mmol/L Test 06/07/17 05:45 06/07/17 06:02 Diagnostic Results ECG Indication: SOB/dyspnea Rate (beats per minute): 115 Rhythm: sinus tachycardia Findings: no acute ischemic change, no ectopy CXR: Appears improved from prior study on 10/15/16. Chronic elevation of Right Hemidiaphragm continues Left Lung appears improved. Difficult read. Formal reading pending Assessment & Plan (1) Coagulopathy (2) SOB (shortness of breath) (3) Hypotension (4) Respiratory failure (5) Diastolic heart failure (6) Multiple sclerosis (7) Diabetes mellitus, type II Reason Critically Ill: Patient is an 72-year-old female who is transferred to the ICU for Respiratory Distress. PLAN: Resp: * Continue Supplemental oxygen as required * Pt currently on BiPap @ 100%, wean as tolerated * Tamiflu ordered, while PCR pending * Continue Zosyn, Doxycycline and Vanco * Hydrocortisone IV 100mg IV Neuro: * Neuro Checks per protocol * Pt currently very lethargic * If Mental status doesn't improve with respiratory pt will require additional imaging * Currently like due to respiratory distress. CV: * Diastolic CHF * Continue Dobutamine at this time * Monitor on telemetry * Continue home medications * Carvedilol as BP allows * Statin * Hold * Lasix * Troponin Negative Fluids/Renal: * BUN/Cr WNL, Monitor Daily * Limit IV fluids secondary to CHF ID: * Afebrile * Lactic 2.1, Neg Procalcitonin * WBC 17.25 * Abx as mentioned above in Respi * Urine and Blood Cultures Pending GI/Nutrition: * Transaminitis: Trend AST/ALT and other liver functions * Consider GI Consult if no improvement, first elevation of enzymes in prior 2 year history * NPO currently Heme: H&H Stable, Plts 448 Endocrine: * Will require insulin infusion as single glucose greater than 250 * Known DM2: No Insulin use on Home med list * HOLD Glipizide CCT: 37 Minutes; This time is exclusive of all separately billable procedures. Thank you for involving us in the care of this patient. Please refer to Dr. Sunny Michele's addendum for further recommendations. I have personally evaluated and examined this patient. I agree with assessment and plan of Nichole Desouza PA-C. hx of bacteremia and steroid dependant hypotension.
[2017-06-07 06:29] LABS: ANISOCYTOSIS PRESENT; BASO % 0.2 %; BASO ABS # 0.03 K/uL (0-0.2); COMPLETE YES; EOS % 0.1 %; IG% 0.3 %; LYMPH % 6.7 %; LYMPH ABS # 1.16 K/uL (1.2-3.4); MONO % 6.8 %; NEUT % 85.9 %; POLYCHROMASIA 1+; STOMATOCYTE 1+
[2017-06-07 06:33] LABS: URINE APPEARANCE CLOUDY (CLEAR); URINE BILIRUBIN NEG (NEG); URINE EPITHELIAL CELL AUTO >30 /lpf (0-5); URINE NITRITE NEG (NEG); URINE SPECIFIC GRAVITY 1.022 (1.000-1.030); UROBILINOGEN NEG (NEG)
[2017-06-07 06:36] LABS: MANUAL MICROSCOPIC REQUIRED? NO; REVIEW REQ? YES; URINE COLOR BROWN
[2017-06-07] MEDS ORDERED: LEVALBUTEROL/IPRATROPIUM NEB INH STA (06:38)
[2017-06-07] MEDS ORDERED: LEVALBUTEROL/IPRATROPIUM NEB INH PRN (06:45)
[2017-06-07] MEDS ORDERED: INSULIN PROTOCOL GOAL RANGE ONE (06:45)
[2017-06-07] MEDS ORDERED: PROCHLORPERAZINE INJ 5 MG in SYRINGE 4 ML IV PRN (06:45)
[2017-06-07] MEDS ORDERED: TRAMADOL HCL 50 MG TAB PO PRN (06:45)
[2017-06-07] MEDS ORDERED: NITROGLYCERIN 0.4 MG SL PER TAB CHARGE SL PRN (06:45)
[2017-06-07] MEDS ORDERED: ACETAMINOPHEN 325 MG TAB PO PRN (06:45)
[2017-06-07] MEDS ORDERED: SODIUM CHLORIDE 0.9% 1000ML 1,000 ML IV SCH (07:00)
[2017-06-07] MEDS ORDERED: INSULIN IV INFUSION PROTOCOL SCH (07:15)
--- NOTE | 2017-06-07 07:19 | DIAGNOSTIC IMAGING REPORT ---
CHEST ONE VIEW PORTABLE CLINICAL HISTORY: 72 years-old Female presenting with Generalized Weakness. TECHNIQUE: Portable upright AP view of the chest was obtained. COMPARISON: 10/15/2016. FINDINGS: Cardiac silhouette remains moderately enlarged. Severe elevation of the right hemidiaphragm persists. Extensive right lung volume loss, unchanged. Opacities at the right lung base may part represent overlapping rib shadows. Allowing for distortion of the lungs due to diaphragm elevation and cardiomegaly, no new focal infiltrate is apparent. No large effusion or pneumothorax. Osseous structures normal. Cholecystectomy clips noted. Mild gaseous distention of colon. IMPRESSION: 1. Low lung volumes with chronic elevation of the right hemidiaphragm and suspected right basilar atelectasis. This is not significantly changed from the prior exam. 2. Cardiomegaly. Electronically signed by: Shiv Davis M.D. 06/07/2017 7:18 AM Dictated Date/Time: 06/07/2017 7:16 AM
[2017-06-07 07:23] LABS: INFLUENZA A PCR Neg for Influ A (NEG); INFLUENZA B PCR Neg for Influ B (NEG)
[2017-06-07 07:48] LABS: IPAP 16; ISTAT ALLEN TEST Pass; ISTAT ARTERIAL BLOOD GAS HCO3 46 meq/L (19-24); ISTAT ARTERIAL BLOOD GAS PCO2 90 mmHg (35-46); ISTAT ARTERIAL BLOOD GAS PO2 61 mmHg (80-95); ISTAT ARTERIAL BLOOD GAS pH 7.31 (7.35-7.45); ISTAT CARBON DIOXIDE > 40 mEq/l (24-31); ISTAT DELIVERY SYSTEM BIPAP; ISTAT FIO2 100 %; ISTAT RATE 20; ISTAT SITE R Radial
[2017-06-07] MEDS ORDERED: OSELTAMIVIR PHOSPHATE 75 MG CAP PO ONE (08:00)
[2017-06-07] MEDS ORDERED: OSELTAMIVIR PHOSPHATE SUSP 75 MG/12.5 ML UDP PO ONE (08:00)
[2017-06-07] MEDS ORDERED: DOXYCYCLINE IV 100 MG in DEXTROSE 5% 100ML 100 ML IV ONE (08:00)
--- NOTE | 2017-06-07 08:17 | HISTORY & PHYSICAL EXAMINATION ---
DATE OF ADMISSION: 06/07/2017 PRIMARY CARE PHYSICIAN: Dr. Pradhan. CHIEF COMPLAINT: Respiratory distress as per records. HISTORY OF PRESENT ILLNESS: History obtained from patient's family and records. Unable to obtain history secondary to obtunded state. Medical history significant for chronic systolic heart failure, EF 45%, HTN, past tobacco abuse hypercoagulable state, PE, DVT on Xarelto. Polycythemia vera Hydrea therapy, MS, DM2 on oral medications. Recent confinement last September 2016 for shortness of breath attributed to CHF exacerbation. As per patient's daughter, last few days, patient noted to be coughing - bronchitis symptoms, sick contacts. Patient's daughter unaware of aspiration. Progressive respiratory distress noted this morning. No abdominal pain, bladder symptoms as per daughter. Patient's daughter unaware of any weight gain. Patient brought to the Emergency Room. Noted to be hypoxemic and hypotensive. BiPAP initiated . Levophed, IVF, Doxycycline, Zosyn and vancomycin given for possible sepsis. MEDICAL HISTORY: As above. A 2D echo from September 2016 showed EF of 45%, LVH, mild to moderate mitral regurgitation. SURGERIES: None. HOME MEDICATIONS: Include doxepin, Lasix, folic acid, Glucotrol, Hydrea, Claritin, mag oxide, potassium chloride, Pravachol, Xarelto, vitamin B. ALLERGIES: No known drug allergies. FAMILY HISTORY: Heart disease, Hodgkins lymphoma. PERSONAL AND SOCIAL HISTORY: Past tobacco abuse. No chronic intake of alcoholic beverages. Retired [employer] employee. REVIEW OF SYSTEMS: Could not be obtained. PHYSICAL EXAMINATION: VITAL SIGNS: Blood pressure was noted to be 89/60, later 109/68, pulse rate 114, later 89, RR 29, temperature 36.3, sats initially 89 on nonrebreather, later 92 on BiPAP at 100%. GENERAL: Noted to be in respiratory distress, obtunded, obese. SKIN: Normal color. Warm. HEENT: Harrells plpebral conjunctivae. No ptosis. Dry buccal mucosa. BiPAP in place. NECK: Short neck. No tenderness. CHEST: Decreased effort. No tenderness. HEART: Regular rate and rhythm. Systolic murmur. ABDOMEN: Soft, nontender. EXTREMITIES: Minimal LE edema, no tenderness. No gross deformities. NEUROLOGIC: Obtunded. No facial asymmetry. Gait and stance not assessed. LABORATORY DATA: Hemoglobin was noted to be 13.8, hematocrit 48.2, white count 17.25, platelets was noted to be 448. Sodium 138, potassium 4.6, chloride 94, CO2 of 44, BUN 24, creatinine 1, glucose was noted to be 263. AST 1195, ALT 900, alkaline phosphatase 219. Lactic acid was noted to be 2.1. ASSESSMENT: Chest x-ray as per my interpretation, elevated right hemidiaphragm, questionable infiltrate on the right, cardiomegaly pH 7.33, pCO2 of 90, O2 sats 94%. EKG as per my interpretation, rate 115, sinus tachycardia, right axis deviation. Q-waves inferior leads. UA showed trace ketones, moderate leukocyte esterase, positive. 1. 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 possible sepsis possible sources : CAP Complicated urinary tract infection, hx neurogenic bladder secondary to multiple sclerosis. (hx Escherichia coli, Enterococcus on previous outpatient urine cultures) 3. Hypotension Secondary to illness BP improved after initial fluid bolus given at the ER and Levophed administration. 4. Encephalopathy Obtunded state secondary to respiratory acidosis 5. Chronic systolic heart failure, nonischemic cardiomyopathy, EF 45%. Patient on the dry side. 6. History hypercoagulable state polycythemia vera on Hydrea therapy. pulmonary embolism/deep venous thrombosis on Xarelto 7. Abnormal liver function tests, possibly from Hydrea. 8. DM2 on oral meds suboptimal control as of recent outpatient HgA1c 8.3 in March 2017. PLAN: ICU to facilitate pressor therapy wean off Levophed Continue BiPAP. Nebs RTC, p.r.n. steroid course. for presumptive COPD exacerbation follow cultures. Doxycycline, Zosyn. Appropriate to hold antihypertensives given low BP gentle IV hydration. follow lactic acid. Follow LFTs. Hold Hydrea for now. May need liver US if abn LFTs progress. IV insulin for blood sugar control BG goal 140-180. DVT prophylaxis, Xarelto. DNR as per patient's previous wishes. Patient's family agreeable to pressor support. Patient's daughter requesting for updates from provider. Ms. Nimo Galaviz, contact number [phone]. Total critical care time was 55 minutes. [facility]
[2017-06-07] MEDS ORDERED: NOREPINEPHRINE BIT INJ 8 MG in DEXTROSE 5% 500ML 500 ML IV PRN (08:30)
[2017-06-07] MEDS ORDERED: VANCOMYCIN CONSULT ACTIVE PRN (08:30)
[2017-06-07] MEDS: INSULIN ASPART 100 UNITS/ML 3 ML PEN SC SCH ×2 (08:48→12:00)
[2017-06-07] MEDS ORDERED: PIPERACILL/TAZOBAC CONSULT ACTIVE PRN (09:00)
[2017-06-07] MEDS: LEVALBUTEROL 1.25MG/0.5ML NEB INH SCH ×2 (09:14→14:05)
[2017-06-07] MEDS: IPRATROPIUM BROMIDE NEB SOLN 0.02% 2.5 ML VIAL INH SCH ×2 (09:14→14:05)
[2017-06-07] MEDS ORDERED: GLUCOSE 10 TABS/TUBE PO PRN (09:15)
[2017-06-07] MEDS ORDERED: DEXTROSE 50% 50 ML SYR IV PRN (09:15)
[2017-06-07] MEDS ORDERED: GLUCOSE 40% GEL 15 GM TUBE PO PRN (09:15)
[2017-06-07] MEDS ORDERED: GLUCAGON FOR INJ 1 MG VIAL SQ PRN (09:15)
[2017-06-07] MEDS ORDERED: INSULIN REGULAR 250 UNITS in SODIUM CHLORIDE 0.9% 250ML 250 ML IV SCH (09:30)
[2017-06-07] MEDS ORDERED: INSULIN HUMAN REGULAR IV BOLUS 3 UNIT in SYRINGE 0 ML IV SCH (09:30)
[2017-06-07] MEDS ORDERED: PIPERACILL/TAZOBAC IV 4.5 GM in DEXTROSE 5% 100ML IV SCH (10:00)
--- NOTE | 2017-06-07 10:39 | Pharmacy Progress Note ---
Pharmacy Antibiotic Consult Date of Service: Jun 07, 2017. Pharmacy Dosing Scope Pharmacy is consulted to initiate vancomycin IV dosing therapy, order appropriate labs and adjust drug dose/frequency. Subjective The patient is a 72 year old female admitted on Jun 07, 2017 at 06:21. Objective Height (Feet): 5 Height (Inches): 3.00 Weight (Kilograms): 82.000 Lab Results (24hrs): Test 06/07/17 00:00 06/07/17 05:04 06/07/17 05:20 06/07/17 05:33 Influenza Type A (RT-PCR) Neg for Influ A (NEG) Influenza Type B (RT-PCR) Neg for Influ B (NEG) White Blood Count 17.25 K/uL (4.8-10.8) Red Blood Count 5.01 M/uL (4.2-5.4) Hemoglobin 13.8 g/dL (12.0-16.0) Hematocrit 48.2 % (37-47) Mean Corpuscular Volume 96.2 fL (80-100) Mean Corpuscular Hemoglobin 27.5 pg (25-34) Mean Corpuscular Hemoglobin Concent 28.6 g/dl (32-36) Platelet Count 448 K/uL (130-400) Mean Platelet Volume 10.8 fL (7.4-10.4) Neutrophils (%) (Auto) 85.9 % Lymphocytes (%) (Auto) 6.7 % Monocytes (%) (Auto) 6.8 % Eosinophils (%) (Auto) 0.1 % Basophils (%) (Auto) 0.2 % Neutrophils # (Auto) 14.82 K/uL (1.4-6.5) Lymphocytes # (Auto) 1.16 K/uL (1.2-3.4) Monocytes # (Auto) 1.17 K/uL (0.11-0.59) Eosinophils # (Auto) 0.01 K/uL (0-0.5) Basophils # (Auto) 0.03 K/uL (0-0.2) RDW Standard Deviation 68.6 fL (36.4-46.3) RDW Coefficient of Variation 20.0 % (11.5-14.5) Immature Granulocyte % (Auto) 0.3 % Immature Granulocyte # (Auto) 0.06 K/uL (0.00-0.02) Nucleated RBC Absolute Count (auto) 0.05 K/uL (0-0) Nucleated Red Blood Cells % 0.3 % Polychromasia 1+ Anisocytosis PRESENT Stomatocytes 1+ Prothrombin Time 15.3 SECONDS (9.0-12.0) Prothromb Time International Ratio 1.5 (0.9-1.1) Activated Partial Thromboplast Time 33.7 SECONDS (21.0-31.0) Partial Thromboplastin Ratio 1.3 Sodium Level 138 mmol/L (136-145) Potassium Level 4.6 mmol/L (3.5-5.1) Chloride Level 94 mmol/L (98-107) Carbon Dioxide Level 44 mmol/L (21-32) Anion Gap 0.0 mmol/L (3-11) Blood Urea Nitrogen 24 mg/dl (7-18) Creatinine 0.79 mg/dl (0.60-1.20) Est Creatinine Clear Calc Drug Dose 66.2 ml/min Estimated GFR () 87.3 Estimated GFR (Non- 75.3 BUN/Creatinine Ratio 30.2 (10-20) Random Glucose 263 mg/dl (70-99) Calcium Level 9.1 mg/dl (8.5-10.1) Phosphorus Level 4.3 mg/dl (2.5-4.9) Magnesium Level 2.3 mg/dl (1.8-2.4) Total Bilirubin 0.6 mg/dl (0.2-1) Direct Bilirubin 0.2 mg/dl (0-0.2) Aspartate Amino Transf (AST/SGOT) 1195 U/L (15-37) Alanine Aminotransferase (ALT/SGPT) 900 U/L (12-78) Alkaline Phosphatase 219 U/L (45-117) Total Creatine Kinase 46 U/L (26-192) Creatine Kinase MB 0.6 ng/ml (0.5-3.6) Creatine Kinase MB Ratio 1.3 (0-3.0) Troponin I < 0.015 ng/ml (0-0.045) Total Protein 8.0 gm/dl (6.4-8.2) Albumin 2.6 gm/dl (3.4-5.0) Lipase 478 U/L (73-393) Procalcitonin 0.45 ng/ml (0-0.5) Thyroid Stimulating Hormone (TSH) 0.906 uIu/ml (0.300-4.500) Bedside Blood Gas pH (LAB) 7.33 (7.35-7.45) Bedside Blood Gas pCO2 (LAB) 90 mmHg (35-46) Bedside Blood Gas pO2 (LAB) 81 mmHg (80-95) Bedside Blood Gas HCO3 (LAB) 47 meq/L (19-24) Bedside Blood Gas Total CO2 > 40 mEq/l (24-31) Bedside Blood Gas Base Excess (LAB) 21.0 meq/L (-9-1.8) Bedside Blood Gas O2 Saturation 94.0 % (90-95) Bedside Lactic Acid Venous 2.10 mmol/L (0.90-1.70) Test 06/07/17 05:45 06/07/17 06:02 06/07/17 06:36 06/07/17 07:34 Urine Color BROWN Urine Appearance CLOUDY (CLEAR) Urine pH 7.0 (4.5-7.5) Urine Specific [place] 1.022 (1.000-1.030) Urine Protein 2+ (NEG) Urine Glucose (UA) NEG (NEG) Urine Ketones TRACE (NEG) Urine Occult Blood 2+ (NEG) Urine Nitrite NEG (NEG) Urine Bilirubin NEG (NEG) Urine Urobilinogen NEG (NEG) Urine Leukocyte Esterase MODERATE (NEG) Urine WBC (Auto) >30 /hpf (0-5) Urine RBC (Auto) >30 /hpf (0-4) Urine Hyaline Casts (Auto) 1-5 /lpf (0-5) Urine Epithelial Cells (Auto) >30 /lpf (0-5) Urine Bacteria (Auto) 4+ (NEG) Urine Pathogenic Casts /lpf (0) Urine Yeast (Auto) BUDDING (NONE PRSENT) Lactic Acid Level 1.6 mmol/L (0.4-2.0) Blood Gas Sample Site R Radial Bedside Blood Gas pH (LAB) 7.31 (7.35-7.45) Bedside Blood Gas pCO2 (LAB) 90 mmHg (35-46) Bedside Blood Gas pO2 (LAB) 61 mmHg (80-95) Bedside Blood Gas HCO3 (LAB) 46 meq/L (19-24) Bedside Blood Gas Total CO2 > 40 mEq/l (24-31) Bedside Blood Gas Base Excess (LAB) 20.0 meq/L (-9-1.8) Bedside Blood Gas O2 Saturation 88.0 % (90-95) Neptali Test Pass Oxygen Delivery Device BIPAP Bedside Oxygen Rate (breaths/min) 20 Bedside FiO2 100 % Blood Gas IPAP 16 Test 06/07/17 08:42 Bedside Glucose 272 mg/dl (70-90) Assessment & Plan Assessment * 72 yo F critically ill in ICU with respiratory failure 2nd CAP vs. COPD exacerbation vs. CHF exacerbation. Also possible UTI. * Additional PMH * MS * Immunosuppression (polycythemia vera on hydroxyurea) * Antimicrobials * Zosyn, doxycycline, vancomycin since 06/07 * Tamiflu x1 dose 06/07 - now discontinued * Cultures/serology * Nasal MRSA swab ordered, uncollected * Influenza PCR negative (A and B) * Renal * SCr very slightly elevated to 0.79 mg/dL (baseline 0.5 mg/dL) * No significant renal dysfunction noted at this time but will follow SCr and UOP Vancomycin * Goal trough 15-20 mcg/mL * Vancomycin 24 mg/kg IV loading dose already administered * Estimated vancomycin t 1/2 ~ 12 hours * Will dose at the t1/2 and provide 18 mg/kg/dose 2nd critical illness * Trough prior to the 4th overall dose Plan * Vancomycin 1500 mg IV q12h * Trough 06/08 @ 1930 Pharmacy will continue to follow and will adjust dose/frequency as necessary. Thank you
[2017-06-07 11:11] LABS: VEN BLOOD GAS BASE EXCESS 11.3 mEq/L; VENOUS BLOOD GAS PCO2 108 mmHg (38.0-50.0); VENOUS BLOOD GAS PO2 35 mmHg
[2017-06-07 11:12] LABS: VEN BLD GAS O2 SATURATION < 60.0 %
--- NOTE | 2017-06-07 11:48 | Critical Care Progress Note ---
Critical Care Progress Note Date of Service Jun 07, 2017. Critical Care Progress Note Manager Sql: Dr. Michele Patient seen at bedside with daughters and present. VBG demonstrates hypercapnic respiratory failure which has been persistent since admission. [place] discussion with family indicates that patient does not wish to be on a mechanical ventilator even for short period of time. Patient also continues to require pressors and is on levo fed. Palliative medicine has been with patient' s family for the last several minutes and has talked about palliative options. At this point family wishes to not only avoid progression of care but wishes to begin to focus on palliative care. Patient does only have peripheral access and is coming to the point where it will no longer be safe to administer pressors without central access. Patient's family does not wish for central line to be placed. At this time, we'll focus on palliative care. Patient's family desires some private time with her with the plan to first stop pressors and then discuss discontinuation of BiPAP and focus only on comfort. Patient's CODE STATUS was reviewed and she is a DO NOT RESUSCITATE level V. We will continue to monitor this wish. Should the patient begin to show signs of discomfort a morphine drip will be initiated and titrated to comfort. The plan was reiterated with the family who agreed with this course of action and had no further questions. A total of 20 minutes was spent with the family in discussion regarding patient' s care.
--- NOTE | 2017-06-07 11:52 | Palliative Care Consultation ---
Consultation Date of Consultation: Jun 07, 2017. Requesting Physician: Dr Michele Attending Physician: Dr Michele Reason for Consultation: Assist and support family with critical decision making History of Present Illness Pt is a 72 yo female with a PMH of MS, HTN, DM, CHF, P vera and MTHFR gene mutation who has been admitted in the past for CHF exacerbations. Pt was brought to the ER this am for respiratory distress. Pt was noted to have sat of 70% by EMS. Family reported pt had URI sx for the past 4 days - this am she became more SOB with AMS. Pt was placed on 100% NRB mask with sats only of 89%, She was then placed on BiPAP. She continues to retain CO2 despite BiPAP. Discussed pt's wishes with 2 daughters and at bedside. Family reports pt has a living will and would not want intubation . Pt also with hypotension requiring pressors - BP continues to fall. Manager Oracle in room administering last rites. Family aware of prognosis - now only a few hours and given optiions for continues treatment or withdraw of pressors and/;or BiPAP. Pt is unresponsive, appears comfortable with relaxed facial expression. There are some family on their way to the hospital and should arrive soon, others are planned to arrive tomorrow. Discussed having family speak to pt by phone as well as family present having private time with her . Family grieving appropriately and accepting of her imminent demise. Past Medical/Surgical History Medical History: HTN, DM, CHF, h/o DVT and PE, HLD, MTHFR gene mutation, MS, P vera, nocturnal hypoxemia. Surgical History: cholecystectomy Family History non contributory Social History Smoking Status: Former Smoker History of Alcohol Use: No Drug Use: none Marital Status: Occupation Status: disabled Review of Systems Unable to obtain - pt unresponsive. Allergies Coded Allergies: No Known Allergies (Verified , 06/07/17) Medications Current Inpatient Medications Medications (Trade) Dose Ordered Sig/Yesenia Route Start Time Stop Time Status Last Admin Dose Admin Insulin Aspart (novoLOG ASPART) SLIDING SCALE PCHS SC 06/07/17 08:00 07/07/17 08:59 Acetaminophen (Tylenol Tab) 325 mg Q6H PRN PO 06/07/17 06:45 07/07/17 06:44 Nitroglycerin (Nitrostat Tab) 0.4 mg UD PRN SL 06/07/17 06:45 07/07/17 06:44 Prochlorperazine Edisylate 5 mg/ Syringe 5 ml @ 5 mls/min Q6H PRN IV 06/07/17 06:45 07/07/17 06:44 Docusate Sodium (coLACE CAP) 100 mg HS PO 06/07/17 21:00 07/07/17 20:59 Folic Acid (Folvite Tab) 1 mg QAM PO 06/07/17 09:00 07/07/17 08:59 Pravastatin Sodium (Pravachol Tab) 20 mg HS PO 06/07/17 21:00 07/07/17 20:59 Rivaroxaban (Xarelto Tab) 20 mg QDD PO 06/07/17 16:30 07/07/17 17:59 Tramadol HCl (Ultram Tab) 25 mg Q6H PRN PO 06/07/17 06:45 07/07/17 06:44 Sodium Chloride 1,000 ml @ 50 mls/hr Q20H IV 06/07/17 07:00 07/07/17 06:59 06/07/17 07:48 50 MLS/HR Piperacillin Sod/ Tazobactam Sod (Consult) 1 ea UD PRN N/A 06/07/17 09:00 07/07/17 08:59 Doxycycline Hyclate 100 mg/ Dextrose 110 ml @ 50 mls/hr BID IV 06/07/17 21:00 06/14/17 20:59 Ipratropium [place] (Atrovent 0.02% 0.5MG/2.5ML Neb) 0.5 mg Q6R INH 06/07/17 07:00 07/07/17 06:59 06/07/17 09:14 0.5 MG Levalbuterol (Xopenex 1.25MG/ 0.5ML Neb) 1.25 mg Q6R INH 06/07/17 07:00 07/07/17 06:59 06/07/17 09:14 1.25 MG Hydrocortisone Sodium Succinate 100 mg/Syringe 2 ml @ 4 mls/min Q8H IV 06/07/17 14:00 06/12/17 07:14 Piperacillin Sod/ Tazobactam Sod 4.5 gm/Dextrose 120 ml @ 30 mls/hr Q8H IV 06/07/17 10:00 12/26/17 09:59 Norepinephrine Bitartrate 8 mg/ Dextrose 508 ml @ 0 mls/hr Q0M PRN IV 06/07/17 08:30 07/07/17 08:29 Vancomycin HCl (Consult) 1 ea UD PRN N/A 06/07/17 08:30 07/07/17 08:29 Insulin Human Regular 250 units/ Sodium Chloride 252.5 ml @ 0 mls/hr Q24H IV 06/07/17 09:30 07/07/17 09:29 06/07/17 09:37 3.1 MLS/HR Glucose (Glucose 40% Gel) 15-30 GRAMS 15 GRAMS... UD PRN PO 06/07/17 09:15 07/07/17 09:14 Glucose (Glucose Chew Tab) 4-8 Tablets 4 Tabl... UD PRN PO 06/07/17 09:15 07/07/17 09:14 Dextrose (Dextrose 50% 50ML Syringe) 25-50ML OF 50% DW IV FOR... UD PRN IV 06/07/17 09:15 07/07/17 09:14 Glucagon (Glucagon Inj) 1 mg UD PRN SQ 06/07/17 09:15 07/07/17 09:14 Vancomycin HCl 1500 mg/Sodium Chloride 530 ml @ 200 mls/hr Q12@0800,1999 IV 06/07/17 20:00 06/14/17 19:59 Physical Exam Date Time Temp Pulse Resp B/P (MAP) Pulse Ox O2 Delivery O2 Flow Rate FiO2 06/07/17 10:46 92 15 122/68 (81) 89 06/07/17 09:46 82 28 128/82 (92) 94 06/07/17 09:31 81 22 112/60 (76) 94 06/07/17 09:16 83 29 117/69 (77) 94 06/07/17 09:15 80 22 93 Room Air 100 06/07/17 09:02 80 24 103/54 (88) 94 06/07/17 08:46 83 24 114/64 (88) 94 06/07/17 08:31 81 28 113/74 (88) 93 06/07/17 08:18 81 25 114/67 (82) 92 06/07/17 08:01 84 19 113/79 (91) 95 06/07/17 08:00 BiPAP 100 06/07/17 08:00 36.6 BiPAP 100 06/07/17 08:00 BiPAP 06/07/17 07:46 84 25 123/73 (98) 90 06/07/17 07:37 84 23 106/69 (90) 82 06/07/17 07:34 84 90 100 06/07/17 07:20 89 20 121/75 (104) 82 06/07/17 06:59 90 BiPAP 100 06/07/17 06:52 82 06/07/17 06:27 36.3 06/07/17 06:20 89 90 100 06/07/17 06:14 89 29 117/76 92 BiPAP 100 06/07/17 05:52 97 32 109/68 89 BiPAP 100 06/07/17 05:16 113 06/07/17 05:15 89 Non-Rebreather 06/07/17 05:11 114 30 89/60 89 Non-Rebreather General Appearance: no apparent distress ENT: + pertinent finding (SADE, BiPAP mask in place) Respiratory: + pertinent finding (poor BS) Cardiovascular: regular rate, rhythm Abdomen: + pertinent finding (diminished BS) Musculoskeletal: poor tone Neurologic/Psychiatric: + pertinent finding (unresponsive) Skin: + pertinent finding (cool LE to knees, pale, no mottling) Laboratory Results Last 24 Hours Test 06/07/17 00:00 06/07/17 05:04 06/07/17 05:20 06/07/17 05:33 Influenza Type A (RT-PCR) Neg for Influ A Influenza Type B (RT-PCR) Neg for Influ B White Blood Count 17.25 K/uL Red Blood Count 5.01 M/uL Hemoglobin 13.8 g/dL Hematocrit 48.2 % Mean Corpuscular Volume 96.2 fL Mean Corpuscular Hemoglobin 27.5 pg Mean Corpuscular Hemoglobin Concent 28.6 g/dl Platelet Count 448 K/uL Mean Platelet Volume 10.8 fL Neutrophils (%) (Auto) 85.9 % Lymphocytes (%) (Auto) 6.7 % Monocytes (%) (Auto) 6.8 % Eosinophils (%) (Auto) 0.1 % Basophils (%) (Auto) 0.2 % Neutrophils # (Auto) 14.82 K/uL Lymphocytes # (Auto) 1.16 K/uL Monocytes # (Auto) 1.17 K/uL Eosinophils # (Auto) 0.01 K/uL Basophils # (Auto) 0.03 K/uL RDW Standard Deviation 68.6 fL RDW Coefficient of Variation 20.0 % Immature Granulocyte % (Auto) 0.3 % Immature Granulocyte # (Auto) 0.06 K/uL Nucleated RBC Absolute Count (auto) 0.05 K/uL Nucleated Red Blood Cells % 0.3 % Polychromasia 1+ Anisocytosis PRESENT Stomatocytes 1+ Prothrombin Time 15.3 SECONDS Prothromb Time International Ratio 1.5 Activated Partial Thromboplast Time 33.7 SECONDS Partial Thromboplastin Ratio 1.3 Sodium Level 138 mmol/L Potassium Level 4.6 mmol/L Chloride Level 94 mmol/L Carbon Dioxide Level 44 mmol/L Anion Gap 0.0 mmol/L Blood Urea Nitrogen 24 mg/dl Creatinine 0.79 mg/dl Est Creatinine Clear Calc Drug Dose 66.2 ml/min Estimated GFR () 87.3 Estimated GFR (Non- 75.3 BUN/Creatinine Ratio 30.2 Random Glucose 263 mg/dl Calcium Level 9.1 mg/dl Phosphorus Level 4.3 mg/dl Magnesium Level 2.3 mg/dl Total Bilirubin 0.6 mg/dl Direct Bilirubin 0.2 mg/dl Aspartate Amino Transf (AST/SGOT) 1195 U/L Alanine Aminotransferase (ALT/SGPT) 900 U/L Alkaline Phosphatase 219 U/L Total Creatine Kinase 46 U/L Creatine Kinase MB 0.6 ng/ml Creatine Kinase MB Ratio 1.3 Troponin I < 0.015 ng/ml Total Protein 8.0 gm/dl Albumin 2.6 gm/dl Lipase 478 U/L Procalcitonin 0.45 ng/ml Thyroid Stimulating Hormone (TSH) 0.906 uIu/ml Bedside Blood Gas pH (LAB) 7.33 Bedside Blood Gas pCO2 (LAB) 90 mmHg Bedside Blood Gas pO2 (LAB) 81 mmHg Bedside Blood Gas HCO3 (LAB) 47 meq/L Bedside Blood Gas Total CO2 > 40 mEq/l Bedside Blood Gas Base Excess (LAB) 21.0 meq/L Bedside Blood Gas O2 Saturation 94.0 % Bedside Lactic Acid Venous 2.10 mmol/L Test 06/07/17 05:45 06/07/17 06:02 06/07/17 06:36 06/07/17 07:34 Urine Color BROWN Urine Appearance CLOUDY Urine pH 7.0 Urine Specific [place] 1.022 Urine Protein 2+ Urine Glucose (UA) NEG Urine Ketones TRACE Urine Occult Blood 2+ Urine Nitrite NEG Urine Bilirubin NEG Urine Urobilinogen NEG Urine Leukocyte Esterase MODERATE Urine WBC (Auto) >30 /hpf Urine RBC (Auto) >30 /hpf Urine Hyaline Casts (Auto) 1-5 /lpf Urine Epithelial Cells (Auto) >30 /lpf Urine Bacteria (Auto) 4+ Urine Pathogenic Casts /lpf Urine Yeast (Auto) BUDDING Lactic Acid Level 1.6 mmol/L Blood Gas Sample Site R Radial Bedside Blood Gas pH (LAB) 7.31 Bedside Blood Gas pCO2 (LAB) 90 mmHg Bedside Blood Gas pO2 (LAB) 61 mmHg Bedside Blood Gas HCO3 (LAB) 46 meq/L Bedside Blood Gas Total CO2 > 40 mEq/l Bedside Blood Gas Base Excess (LAB) 20.0 meq/L Bedside Blood Gas O2 Saturation 88.0 % Neptali Test Pass Oxygen Delivery Device BIPAP Bedside Oxygen Rate (breaths/min) 20 Bedside FiO2 100 % Blood Gas IPAP 16 Test 06/07/17 08:42 06/07/17 11:00 Bedside Glucose 272 mg/dl Venous Blood pH 7.22 Venous Blood Partial Pressure CO2 108 mmHg Venous Blood Partial Pressure O2 35 mmHg Venous Blood HCO3 44 mmol/L Venous Blood Oxygen Saturation < 60.0 % Venous Blood Base Excess 11.3 mEq/L Assessment & Plan Palliative Performance Scale: 10 % (1) SOB (shortness of breath) Status: Acute Assessment & Plan: On BiPAP (2) Hypotension Status: Acute Assessment & Plan: on Levophed - discussed discontinuing with family (3) Respiratory failure Status: Acute (4) Multiple sclerosis Status: Chronic Assessment & Plan: On steroids (5) Diabetes mellitus, type II Status: Chronic Assessment & Plan: on Insulin and daughters agree that pt would not want to be on prolonged life support. Plan to D/C levophed and discussed removing BiPAP as an option nd keeping pt comfortable. Family will let us konw when they are ready to d/c levophed. Total time 70 min with > 50% of time spent discussing treatment options and providing support for family. Plan to return later in afternoon to see how family is coping and assess pt comfort.
[2017-06-07] MEDS ORDERED: LEVALBUTEROL/IPRATROPIUM NEB INH SCH (12:00)
[2017-06-07] MEDS ORDERED: HYDROCORTISONE IV 100 MG in SYRINGE 0 ML IV SCH (14:00)
[2017-06-07] MEDS ORDERED: MoRPHine SULFATE 2 MG/ML CARP ONE (15:01)
[2017-06-07] MEDS ORDERED: MoRPHine SULFATE 2 MG/ML CARP IV STA (15:03)
[2017-06-07] MEDS ORDERED: MoRPHine SULF/NSS 250MG/250ML 250 ML IV PRN (15:15)
--- NOTE | 2017-06-07 16:26 | Palliative Care Progress Note ---
Palliative Care Progress Note Date of Service Jun 07, 2017. Subjective Pt evaluation today including: conversation w/ family Pain: Pt comfortable on Morphine drip PO Intake: none Objective Vital Signs Date Time Temp Pulse Resp B/P (MAP) Pulse Ox O2 Delivery O2 Flow Rate FiO2 06/07/17 14:06 91 91 100 06/07/17 10:46 92 15 122/68 (81) 89 06/07/17 09:46 82 28 128/82 (92) 94 06/07/17 09:31 81 22 112/60 (76) 94 06/07/17 09:16 83 29 117/69 (77) 94 06/07/17 09:15 80 22 93 Room Air 100 06/07/17 09:02 80 24 103/54 (88) 94 06/07/17 08:46 83 24 114/64 (88) 94 06/07/17 08:31 81 28 113/74 (88) 93 06/07/17 08:18 81 25 114/67 (82) 92 06/07/17 08:01 84 19 113/79 (91) 95 06/07/17 08:00 BiPAP 100 06/07/17 08:00 36.6 BiPAP 100 06/07/17 08:00 BiPAP 06/07/17 07:46 84 25 123/73 (98) 90 06/07/17 07:37 84 23 106/69 (90) 82 06/07/17 07:34 84 90 100 06/07/17 07:20 89 20 121/75 (104) 82 06/07/17 06:59 90 BiPAP 100 06/07/17 06:52 82 06/07/17 06:27 36.3 06/07/17 06:20 89 90 100 06/07/17 06:14 89 29 117/76 92 BiPAP 100 06/07/17 05:52 97 32 109/68 89 BiPAP 100 06/07/17 05:16 113 06/07/17 05:15 89 Non-Rebreather 06/07/17 05:11 114 30 89/60 89 Non-Rebreather Assessment and Plan (1) SOB (shortness of breath) Status: Acute (2) Hypotension Status: Acute (3) Respiratory failure Status: Acute (4) Multiple sclerosis Status: Chronic (5) Diabetes mellitus, type II Status: Chronic Pt seen at 1400 and again at 1600 - At 1400 pt off Levophed , but still with BiPAP on - 2 daughters, and 2 granddaughters at bedside. Pt with eyes open, responding to family, alert, NAD - provided support to family. At 1600 - pt off BiPAP, still opening eyes, less responsive, hands cool and cyanotic, sats in the 50's. Respirations unlabored on morphine drip. Family aware pt is imminent. with bouts of increased confusion - wanting to take pt home and take care of her, etc. Provided support to family and encouraged them to notify nursing if they see any signs of discomfort or distress. Palliative Performance Scale: 10 %
[2017-06-07] MEDS ORDERED: RIVAROXABAN 20 MG TAB PO SCH (16:30)
--- NOTE | 2017-06-07 17:51 | Progress Note ---
Progress Note Date of Service Jun 07, 2017. Progress Note Pt was seen and examined Lying in bed with family at bedside with distress Pt did not improved with Bipap and her PCO2 on VBG was worst ICU team talked to patient and family and do not want any aggressive management Pt does not want any mechanical ventilation; also refused Bipap and central line placement palliative care on board Will continue monitor A/P Acute Hypercapnia respiratory failure PCO2 worsening on VBG BIPAP discontinued as per patient and family No mechanical ventilation as per patient Palliative care on board Goal is to keep her comfortable Continue current abx. CODE STATUS DNR
--- NOTE | 2017-06-07 18:32 | Critical Care Progress Note ---
Critical Care Progress Note Date of Service Jun 07, 2017. Critical Care Progress Note Called to bedside, asystole on monitor. No palpable pulse. Patient peacefully with family present at bedside at 18:17.
[2017-06-07] MEDS ORDERED: VANCOMYCIN INJ 1,500 MG in SODIUM CHLORIDE 0.9% 500ML 500 ML IV SCH (20:00)
[2017-06-07] MEDS ORDERED: PRAVASTATIN SOD 20 MG TAB PO SCH (21:00)
[2017-06-07] MEDS ORDERED: DOXYCYCLINE IV 100 MG in DEXTROSE 5% 100ML 100 ML IV SCH (21:00)
[2017-06-07] MEDS ORDERED: DOCUSATE SODIUM 100 MG CAP PO SCH (21:00)
--- NOTE | 2017-06-08 07:59 | Discharge Summary ---
Discharge Summary Date of Service Jun 08, 2017. Discharge Summary Admission Date: Jun 07, 2017 at 06:21 Discharge Disposition: Principal Diagnosis: Acute Hypercapnia respiratory failure Admission Information HPI (per Admitting provider): History obtained from patient's family and records. Unable to obtain history secondary to obtunded state. Medical history significant for chronic systolic heart failure, EF 45%, HTN, past tobacco abuse hypercoagulable state, PE, DVT on Xarelto. Polycythemia vera Hydrea therapy, MS, DM2 on oral medications. Recent confinement last September 2016 for shortness of breath attributed to CHF exacerbation. As per patient's daughter, last few days, patient noted to be coughing - bronchitis symptoms, sick contacts. Patient's daughter unaware of aspiration. Progressive respiratory distress noted this morning. No abdominal pain, bladder symptoms as per daughter. Patient's daughter unaware of any weight gain. Patient brought to the Emergency Room. Noted to be hypoxemic and hypotensive. BiPAP initiated . Levophed, IVF, Doxycycline, Zosyn and vancomycin given for possible sepsis. Physical Exam (per Admitting): VITAL SIGNS: Blood pressure was noted to be 89/60, later 109/68, pulse rate 114, later 89, RR 29, temperature 36.3, sats initially 89 on nonrebreather, later 92 on BiPAP at 100%. GENERAL: Noted to be in respiratory distress, obtunded, obese. SKIN: Normal color. Warm. HEENT: Tyler plpebral conjunctivae. No ptosis. Dry buccal mucosa. BiPAP in place. NECK: Short neck. No tenderness. CHEST: Decreased effort. No tenderness. HEART: Regular rate and rhythm. Systolic murmur. ABDOMEN: Soft, nontender. EXTREMITIES: Minimal LE edema, no tenderness. No gross deformities. NEUROLOGIC: Obtunded. No facial asymmetry. Gait and stance not assessed. Hospital Course Acute Hypercapnia respiratory failure PCO2 worsening on VBG Pt did not improved with Bipap and her PCO2 on VBG worsening BIPAP discontinued as per patient and family ICU team talked to patient and family and do not want any aggressive management Pt does not want any mechanical ventilation; also refused Bipap and central line placement Palliative care on board Goal is to keep her comfortable Continue current abx. CODE STATUS DNR She was Asystole on monitor. No palpable pulse. Patient peacefully with family present at bedside at 18:17 on 06/07/17 Total time spent on discharge = 15 minutes This includes examination of the patient, discharge planning, medication reconciliation, and communication with other providers. Discharge Instructions Patient peacefully with family present at bedside at 18:17 on Additional Copies To Carol Avalos M.D.
[2017-06-08] MEDS ORDERED: VANCOMYCIN TROUGH ONE (19:30)
== END 2017-06-07 21:26 | disposition expired | DRG 189 ==
LOC: EDBD 05:06 → C.EDB 05:08 → C.MSICU 06:21 → ENRESERV 06:51
PROVIDERS: ADMIT Internal Medicine; ATTEND Internal Medicine
PROC: 5A09357 Assistance with Respiratory Ventilation, Less than 24 Consecutive Hours, Continuous Positive Airway Pressure (ICD-10-PCS; principal; 2017-06-07)
DX: J96.01 Acute respiratory failure with hypoxia (principal); J96.02 Acute respiratory failure with hypercapnia; I50.32 Chronic diastolic (congestive) heart failure; J44.1 Chronic obstructive pulmonary disease with (acute) exacerbation; J18.9 Pneumonia, unspecified organism; Z51.5 Encounter for palliative care; Z66 Do not resuscitate; G93.40 Encephalopathy, unspecified; I11.0 Hypertensive heart disease with heart failure; E11.9 Type 2 diabetes mellitus without complications; E78.00 Pure hypercholesterolemia, unspecified; G35 Multiple sclerosis; I95.9 Hypotension, unspecified; D45 Polycythemia vera; Z79.01 Long term (current) use of anticoagulants; Z86.711 Personal history of pulmonary embolism